=== PATIENT | male | born 1965 | race Two or more races ===

== ENCOUNTER 2017-10-29 16:23 | Emergency (ER) | payer SELFPAY ==
--- NOTE | 2017-10-29 17:06 | PDOC ---
History of Present Illness <PatoCaronelkin Valadez - Last Filed: 10/29/17 19:45> - General History Source: Patient Exam Limitations: No Limitations - History of Present Illness Initial Comments: 10/29/17 19:54 Patient is a 52 year old female with a significant past medical history of varicose veins and psychiatric problems who presents to the ED with complaints of left arm pain that began 1 week ago. Patient reports going to [facility] last week and was given an IV into his left arm. He reports experiencing intermittent diffuse left arm pain that he states shoots up and down his arm. Denies Chest pain, SOB. Denies nausea, vomiting. Denies chills, fevers, chills. Denies contact with sick individuals, out of state travelling. Denies any other symptoms. Allergies: None Social history: Current smoker (30 cigarettes). No alcohol. No illicit drugs. Surgical history: None PMD: None <Kevin Farrell - Last Filed: 10/29/17 19:55> - General Chief Complaint: Substance Abuse Stated Complaint: DRUGS Time Seen by Provider: 10/29/17 16:56 Past History - Past Medical History Psychiatric Problems: Yes - Immunization History Immunization Up to Date: Yes - Suicide/Smoking/Psychosocial Hx Smoking History: Never smoked Have you smoked in the past 12 months: No Number of Cigarettes Smoked Daily: 10 Hx Alcohol Use: No Drug/Substance Use Hx: No Substance Use Type: None <PatoAsaelelkin Valadez - Last Filed: 10/29/17 19:45> <Kevin Farrell - Last Filed: 10/29/17 19:55> - Past Medical History Allergies/Adverse Reactions: Allergies Allergy/AdvReac Type Severity Reaction Status Date / Time No Known Allergies Allergy Verified 04/11/16 08:45 Home Medications: Ambulatory Orders NK [No Known Home Medication] 10/29/17 Review of Systems - Review of Systems Able to Perform ROS?: Yes Comments:: 10/29/17 19:54 CONSTITUTIONAL: Absent: fever, chills, diaphoresis, generalized weakness, malaise, loss of appetite HEENT: Absent: rhinorrhea, nasal congestion, throat pain, throat swelling, difficulty swallowing, mouth swelling, ear pain, eye pain, visual Changes CARDIOVASCULAR: Absent: chest pain, syncope, palpitations, irregular heart rate, lightheadedness , peripheral edema RESPIRATORY: Absent: cough, shortness of breath, dyspnea with exertion, orthopnea, wheezing, stridor, hemoptysis GASTROINTESTINAL: Absent: abdominal pain, abdominal distension, nausea, vomiting, diarrhea, constipation, melena, hematochezia GENITOURINARY: Absent: dysuria, frequency, urgency, hesitancy, hematuria, flank pain, genital pain MUSCULOSKELETAL: +Left arm pain. Absent: myalgia, arthralgia, joint swelling SKIN: Absent: rash, itching, pallor HEMATOLOGIC/IMMUNOLOGIC: Absent: easy bleeding, easy bruising, lymphadenopathy, frequent infections ENDOCRINE: Absent: unexplained weight gain, unexplained weight loss, heat intolerance, cold intolerance NEUROLOGIC: Absent: headache, focal weakness or paresthesias, dizziness, unsteady gait, seizure, mental status changes, bladder or bowel incontinence PSYCHIATRIC: Absent: anxiety, depression, suicidal or homicidal ideation, hallucinations. All Other Systems: Reviewed and Negative <Kevin Farrell - Last Filed: 10/29/17 19:55> *Physical Exam - Vital Signs Last Vital Signs Temp Pulse Resp BP Pulse Ox 97.7 F 78 18 134/82 100 10/29/17 16:59 10/29/17 16:59 10/29/17 16:59 10/29/17 16:59 10/29/17 16:59 - Physical Exam Comments: 10/29/17 19:54 GENERAL: Well-appearing, well-nourished. No apparent distress. HEENT: Normocephalic, atraumatic. PERRL, EOM intact. CARDIOVASCULAR: Normal S1, S2. Regular rate and rhythm. PULMONARY: Clear to auscultation bilaterally. ABDOMEN: Soft, non-distended, non-tender. EXTREMITIES: +Lower extremity varicose veins. +Good ROM. 1+ Bilateral lower extremity edema. Normal ROM in all four extremities. No gross deformities. No cellulitis. SKIN: Warm, dry. No rash NEUROLOGICAL: No focal neurological deficits. <Kevin Farrell - Last Filed: 10/29/17 19:55> ED Treatment Course - Medications Given in the ED: ED Medications Discontinued Medications Generic Name Dose Route Start Last Admin Trade Name Freq PRN Reason Stop Dose Admin Ketorolac Tromethamine 60 mg 10/29/17 17:43 10/29/17 18:51 Toradol Injection - IM 10/29/17 17:44 60 mg ONCE ONE Administration <Kevin Farrell - Last Filed: 10/29/17 19:55> Medical Decision Making - Medical Decision Making 10/29/17 17:55 52 yo male p/w left shoulder pain for an indeterminate amount of time. He states he had this pain since "for ever".Denies any recent trauma. -Exam neurovascularly intact with 2 point sensation,good ulnar and radial pulses PMH varicose veins,psych Pt has good range of motion and no obvious deformity 10/29/17 19:39 xray of left shoulder no acute dislocation or fracture IMP chronic L shoulder pain, DJD <Caron Whyte - Last Filed: 10/29/17 19:45> *DC/Admit/Observation/Transfer <Caron Whyte - Last Filed: 10/29/17 19:45> - Attestations Scribe Attestion: 10/29/17 19:54 Documentation prepared by Kevin Farrell, acting as medical chemist for Caron Whyte MD/DO. <Kevin Farrell - Last Filed: 10/29/17 19:55> Diagnosis at time of Disposition: Chronic left shoulder pain - Patient Instructions Printed Discharge Instructions: DI for Shoulder Pain Additional Instructions: please take tylenol or motrin for pain
[2017-10-29 17:41] VITALS: BMI 21.0
[2017-10-29] MEDS ORDERED: KETOROLAC TROMETHAMINE 60 MG/2 ML VIAL IM ONE (17:43)
[2017-10-29] MEDS ORDERED: KETOROLAC TROMETHAMINE 60 MG/2 ML VIAL ONE (18:41)
[2017-10-29 20:31] VITALS: BP 125/81; PULSE 69; TEMP 97.9
== END 2017-10-29 20:33 | disposition home or self-care (01) ==
LOC: JER 16:23
PROC: 3E0233Z Introduction of Anti-inflammatory into Muscle, Percutaneous Approach (ICD-10-PCS; principal; 2017-10-29)
DX: M25.512 Pain in left shoulder (principal); G89.29 Other chronic pain; R60.0 Localized edema; I83.93 Asymptomatic varicose veins of bilateral lower extremities; F41.9 Anxiety disorder, unspecified
CPT/HCPCS: 73030-TC-LT; 99283-25

== ENCOUNTER 2018-01-25 12:31 | Inpatient (IN) | payer SELFPAY ==
[2018-01-25 16:07] VITALS: BMI 24.7
--- NOTE | 2018-01-25 21:30 | HP ---
COWS - Scale Resting Pulse: 1= [place] 81-100 Sweatin= Chills/Flushing Restless Observation: 1= Difficult to Sit Still Pupil Size: 1= Pupils >than Normal Bone or Joint Aches: 2= Severe Diffuse Aches Runny Nose/ Eye Tearin= Runny Nose/Eyes GI Upset > 30mins: 3= Vomiting/Diarrhea (no vomiting, diarrhea x 2) Tremor Observation: 2= Slight Tremor Visible Yawning Observation: 1= 1-2x During Session Anxiety or Irritability: 4=Extreme Anxiety Goose Flesh Skin: 0=Smooth Skin COWS Score: 18 Admission [facility] Chief Complaint: Opioid withdrawal symptoms Allergies/Adverse Reactions: Allergies Allergy/AdvReac Type Severity Reaction Status Date / Time No Known Allergies Allergy Verified 01/25/18 20:43 History of Present Illness: 52 years old male with 30 years history of heroin and cocaine dependence is seeking admission to detox. Patient states that the last time he was in detox was 15 years ago. Reports 5 years of sobriety. Patient has medical history of Hep. C, varicose vein, anxiety, GERD and depression. He denies suicidal attempt and suicidal ideation at this time. Exam Limitations: No Limitations - Ebola screening Have you traveled outside of the country in the last 21 days: No (N) Have you had contact with anyone from an Ebola affected area: No Have you been sick,other than usual withdrawal symptoms: No Do you have a fever: No - Review of Systems Constitutional: Chills, Loss of Appetite, Malaise, Night Sweats, Changes in sleep EENT: reports: Blurred Vision Respiratory: reports: No Symptoms reported Cardiac: reports: No Symptoms Reported GI: reports: Diarrhea, Nausea, Poor Appetite, Poor Fluid Intake, Abdominal cramping : reports: No Symptoms Reported Musculoskeletal: reports: Back Pain Integumentary: reports: No Symptoms Reported, Dryness, Flushing Neuro: reports: Tingling, Tremors Endocrine: reports: No Symptoms Reported Hematology: reports: Easy Bleeding, Easy Bruising Psychiatric: reports: Anxious, Depressed Other Systems: Reviewed and Negative Patient History - Patient Medical History Hx Anemia: No Hx Asthma: No Hx Chronic Obstructive Pulmonary Disease (COPD): No Hx Cancer: No Hx Cardiac Disorders: No Hx Congestive Heart Failure: No Hx Hypertension: No Hx Hypercholesterolemia: No HX Cerebrovascular Accident: No Hx Seizures: No Hx Diabetes: No Hx Gastrointestinal Disorders: Yes (GERD - Not on medication) Hx Liver Disease: Yes (Hep C) Hx Genitourinary Disorders: No Hx Sexually Transmitted Disorders: No Hx Renal Disease (ESRD): No Hx Thyroid Disease: No Hx Human Immunodeficiency Virus (HIV): No (Negative 2013) Hx Hepatitis C: Yes (Not on medication) Hx Depression: Yes (Seroquel) Hx Suicide Attempt: No (Denies suicide attempt and suicidal ideation at this time) Hx Bipolar Disorder: No Hx Schizophrenia: Yes Other Medical History: varicose vein - PLAVIX, Anxiety - Patient Surgical History Past Surgical History: No Hx Neurologic Surgery: No Hx Cataract Extraction: No Hx Cardiac Surgery: No Hx Lung Surgery: No Hx Abdominal Surgery: No Hx Appendectomy: No Hx Cholecystectomy: No Hx Genitourinary Surgery: No Hx Orthopedic Surgery: No Anesthesia Reaction: No - PPD History Previous Implant?: Yes Documented Results: Positive w/o proof PPD to be Administered?: No - Reproductive History Patient is a Female of Child Bearing Age (11 -55 yrs old): No (MALE) - Smoking Cessation Smoking history: Current every day smoker Have you smoked in the past 12 months: Yes Aproximately how many cigarettes per day: 40 Hx Chewing Tobacco Use: No Initiated information on smoking cessation: Yes 'Breaking Loose' booklet given: 01/25/18 - Substance & Tx. History Hx Alcohol Use: No Hx Substance Use: Yes Substance Use Type: Cocaine, Heroin, Marijuana, Opiates Hx Substance Use Treatment: Yes ([facility]) - Substances Abused Heroin Route: Inhalation Frequency: Daily Amount used: 10 BAGS Age of first use: 22 Date of Last Use: 01/24/18 Cocaine Route: Smoking Frequency: Daily Amount used: $60 Age of first use: 20 Date of Last Use: 01/19/18 Marijuana/Hashish Route: Smoking Frequency: Daily Amount used: $10 Age of first use: 20 Date of Last Use: 01/20/18 Family Disease History - Family Disease History Family Disease History: Diabetes: Mother (Alcoholic), Heart Disease: Mother, Other: Mother Admission Physical Exam BHS - Vital Signs Vital Signs: Vital Signs - 24 hr 01/25/18 16:03 Temperature 98.6 F Pulse Rate 97 H Respiratory 20 Rate Blood Pressure 141/66 - Physical General Appearance: Yes: Moderate Distress, Tremorous, Irritable, Sweating, Anxious HEENTM: Yes: EOMI, Normal ENT Inspection Respiratory: Yes: Lungs Clear, Normal Breath Sounds, No Respiratory Distress Neck: Yes: Supple Breast: Yes: Breast Exam Deferred Cardiology: Yes: Tachycardia Abdominal: Yes: Normal Bowel Sounds, Soft Genitourinary: Yes: Within Normal Limits Back: Yes: Normal Inspection Musculoskeletal: Yes: Back pain Extremities: Yes: Tremors Neurological: Yes: Alert, Normal Mood/Affect Integumentary: Yes: Dry Lymphatic: Yes: Within Normal Limits - Diagnostic (1) Opioid dependence with withdrawal Current Visit: Yes Status: Chronic (2) Cocaine dependence, uncomplicated Current Visit: Yes Status: Chronic (3) Cannabis dependence Current Visit: Yes Status: Chronic (4) Hep C w/o coma, chronic Current Visit: Yes Status: Chronic (5) GERD (gastroesophageal reflux disease) Current Visit: Yes Status: Chronic (6) Depression Current Visit: Yes Status: Chronic (7) Varicose vein Current Visit: No Status: Chronic Cleared for Admission [facility] - Detox or Rehab [facility] Level of Care: Medically Managed Detox Regimen/Protocol: Methadone [facility] Breath Alcohol Content Breath Alcohol Content: 0 Urine Drug Screen - Results Drug Screen Negative: No Urine Drug Screen Results: THC-Marijuana, JESSICA-Cocaine, OPI-Opiates, PCP- Phencyclidine, OXY-Oxycodone
[2018-01-25] MEDS ORDERED: guaiFENesin/D-METHORPHAN HB 10 ML UNIT-DOSE CUPS PO PRN (21:44)
[2018-01-25] MEDS ORDERED: MENTHOL/PHENOL 1 EACH UD MM PRN (21:44)
[2018-01-25] MEDS ORDERED: IBUPROFEN 400 MG TABLET (FP) PO PRN (21:44)
[2018-01-25] MEDS ORDERED: ACETAMINOPHEN 325 MG TABLET (FP) PO PRN (21:44)
[2018-01-25] MEDS ORDERED: MAGNESIUM HYDROX 2400MG/30ML ORAL SUSPENSION 30 ML CUP PO PRN (21:44)
[2018-01-25] MEDS ORDERED: NICOTINE POLACRILEX 2 MG GUM BC PRN (21:44)
[2018-01-25] MEDS ORDERED: P-EPHED 60MG/TRIPROLIDI 2.5MG TABLET PO PRN (21:44)
[2018-01-25] MEDS ORDERED: METHADONE HCL 10 MG TABLET (FOR DETOX USE ONLY) PO ONE ×2 (21:44→23:00)
[2018-01-25] MEDS ORDERED: MAGNESIUM CITRATE 300 ML BOTTLE PO PRN (21:44)
[2018-01-25] MEDS ORDERED: LOPERAMIDE HCL 2 MG CAPSULE PO PRN (21:44)
[2018-01-25] MEDS ORDERED: MELATONIN 5 MG TABLETS PO PRN (22:00)
[2018-01-25 23:34] LABS: URINE APPEARANCE CLEAR; URINE BILIRUBIN NEGATIVE (<2.0 mg/dL); URINE BLOOD NEGATIVE (NEGATIVE); URINE COLOR YELLOW; URINE GLUCOSE (UA) NEGATIVE (NEGATIVE); URINE KETONE NEGATIVE (NEGATIVE); URINE LEUK ESTERASE NEGATIVE (NEGATIVE); URINE NITRITE NEGATIVE (NEGATIVE); URINE PROTEIN NEGATIVE (NEGATIVE)
[2018-01-25] MEDS: THIAMINE HCL 100 MG TABLET (FP) PO SCH (23:53)
[2018-01-25] MEDS: diazePAM 5 MG TABLET PO PRN (23:53)
[2018-01-26] MEDS ORDERED: METHADONE HCL 10 MG TABLET (FOR DETOX USE ONLY) PO ONE (10:00)
[2018-01-26 10:41] LABS: HEMATOCRIT 40.2 % (35.4-49); HEMOGLOBIN 13.2 GM/dL (11.7-16.9); MCH 31.1 pg (25.7-33.7); MCHC 32.7 g/dl (32.0-35.9); MEAN PLT VOLUME 9.4 fl (7.5-11.1); PLATELET COUNT 178 K/MM3 (134-434); RBC 4.24 M/mm3 (4.00-5.60); RDW 14.8 % (11.9-15.9); WHITE BLOOD COUNT 6.2 K/mm3 (4.0-10.0)
[2018-01-26 10:42] LABS: ANION GAP 7 (8-16); BLOOD UREA NITROGEN 11 mg/dL (7-18); CALCIUM 8.4 mg/dL (8.5-10.1); CHLORIDE 109 mmol/L (98-107); CO2 27 mmol/L (21-32); GLUCOSE,RANDOM 124 mg/dL (74-106); POTASSIUM 3.7 mmol/L (3.5-5.1); SGPT/ALT 29 U/L (12-78); SODIUM 143 mmol/L (136-145)
[2018-01-26 10:45] LABS: ALK PHOS 92 U/L (45-117); BILIRUBIN,TOTAL 0.4 mg/dL (0.2-1.0); SGOT/AST 32 U/L (15-37); TOT PROT 6.7 g/dl (6.4-8.2)
[2018-01-26] MEDS: NICOTINE 14 MG/24 HOURS TOPICAL PATCH TD SCH (10:48)
[2018-01-26] MEDS: PRENATAL VITAMINS W/ FOLIC ACID TABLET (FP) PO SCH (10:48)
[2018-01-26] MEDS: CLOPIDOGREL BISULFATE 75 MG TABLET (FP) PO SCH (10:48)
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
--- NOTE | 2018-01-26 14:04 | PN ---
BHS COWS - Scale Resting Pulse: 1= [place] 81-100 Sweatin= Chills/Flushing Restless Observation: 3= Extraneous Movement Pupil Size: 1= Pupils >than Normal Bone or Joint Aches: 2= Severe Diffuse Aches Runny Nose/ Eye Tearin= Runny Nose/Eyes GI Upset > 30mins: 2= Nausea/Diarrhea Tremor Observation of Outstretched Hands: 2= Slight Tremor Visible Yawning Observation: 1= 1-2x During Session Anxiety or Irritability: 2=Irritable/Anxious Goose Flesh Skin: 0=Smooth Skin COWS Score: 17 BHS Progress Note (SOAP) Subjective: ALERT,IRRITABLE,ANXIOUS,INTERRUPTED SLEEP,TREMOR,PAIN IN THE BODY AND BACK Objective: 01/26/18 14:02 Vital Signs Temperature 98.2 F 01/26/18 10:52 Pulse Rate 84 01/26/18 10:52 Respiratory Rate 18 01/26/18 10:52 Blood Pressure 127/70 01/26/18 10:52 O2 Sat by Pulse Oximetry (%) EKG NSR,LVH Vital Signs Temperature 98.2 F 01/26/18 10:52 Pulse Rate 84 01/26/18 10:52 Respiratory Rate 18 01/26/18 10:52 Blood Pressure 127/70 01/26/18 10:52 O2 Sat by Pulse Oximetry (%) Laboratory Last Values WBC 6.2 K/mm3 (4.0-10.0) 01/26/18 07:50 RBC 4.24 M/mm3 (4.00-5.60) 01/26/18 07:50 Hgb 13.2 GM/dL (11.7-16.9) 01/26/18 07:50 Hct 40.2 % (35.4-49) 01/26/18 07:50 MCV 95.0 fl (80-96) 01/26/18 07:50 MCH 31.1 pg (25.7-33.7) 01/26/18 07:50 MCHC 32.7 g/dl (32.0-35.9) 01/26/18 07:50 RDW 14.8 % (11.9-15.9) 01/26/18 07:50 Plt Count 178 K/MM3 (134-434) 01/26/18 07:50 MPV 9.4 fl (7.5-11.1) 01/26/18 07:50 Sodium 143 mmol/L (136-145) 01/26/18 07:50 Potassium 3.7 mmol/L (3.5-5.1) 01/26/18 07:50 Chloride 109 mmol/L (98-107) H 01/26/18 07:50 Carbon Dioxide 27 mmol/L (21-32) 01/26/18 07:50 Anion Gap 7 (8-16) L 01/26/18 07:50 BUN 11 mg/dL (7-18) D 01/26/18 07:50 Creatinine 1.0 mg/dL (0.7-1.3) D 01/26/18 07:50 Creat Clearance w eGFR > 60 (>60) 01/26/18 07:50 Random Glucose 124 mg/dL (74-106) H D 01/26/18 07:50 Calcium 8.4 mg/dL (8.5-10.1) L 01/26/18 07:50 Total Bilirubin 0.4 mg/dL (0.2-1.0) 01/26/18 07:50 AST 32 U/L (15-37) 01/26/18 07:50 ALT 29 U/L (12-78) 01/26/18 07:50 Alkaline Phosphatase 92 U/L (45-117) 01/26/18 07:50 Total Protein 6.7 g/dl (6.4-8.2) 01/26/18 07:50 Albumin 3.0 g/dl (3.4-5.0) L 01/26/18 07:50 Urine Color Yellow 01/25/18 21:50 Urine Appearance Clear 01/25/18 21:50 Urine pH 6.0 (5.0-8.0) 01/25/18 21:50 Ur Specific [place] 1.027 (1.001-1.035) 01/25/18 21:50 Urine Protein Negative (NEGATIVE) 01/25/18 21:50 Urine Glucose (UA) Negative (NEGATIVE) 01/25/18 21:50 Urine Ketones Negative (NEGATIVE) 01/25/18 21:50 Urine Blood Negative (NEGATIVE) 01/25/18 21:50 Urine Nitrite Negative (NEGATIVE) 01/25/18 21:50 Urine Bilirubin Negative (<2.0 mg/dL) 01/25/18 21:50 Urine Urobilinogen 2.0 mg/dL (0.2-1.0) 01/25/18 21:50 Ur Leukocyte Esterase Negative (NEGATIVE) 01/25/18 21:50 RPR Titer Nonreactive (NONREACTIVE) 01/26/18 07:50 HIV 1&2 Antibody Screen Negative 01/26/18 07:50 HIV P24 Antigen Negative 01/26/18 07:50 Assessment: 01/26/18 14:04 WITHDRAWAL SYMPTOM Plan: CONTINUE DETOX,FASTING GLUCOSE IN AM,INITIAL GLUCOSE IS 124
[2018-01-26] MEDS: MAG HYDROX/AL HYDROX/SIMETH 30 ML UNIT-DOSE CUP PO PRN (16:36)
[2018-01-26] MEDS: diazePAM 5 MG TABLET PO PRN (22:05)
[2018-01-26] MEDS: ZOLPIDEM TARTRATE 5 MG TABLET PO PRN (22:06)
[2018-01-26] MEDS: THIAMINE HCL 100 MG TABLET (FP) PO SCH (22:06)
[2018-01-26] MEDS: PARoxetine HCL 20 MG TABLET (FP) PO SCH (22:06)
[2018-01-27] MEDS ORDERED: METHADONE HCL 5 MG TABLET (FOR DETOX USE ONLY) PO ONE (10:00)
[2018-01-27] MEDS: PRENATAL VITAMINS W/ FOLIC ACID TABLET (FP) PO SCH (10:30)
[2018-01-27] MEDS: NICOTINE 14 MG/24 HOURS TOPICAL PATCH TD SCH (10:42)
[2018-01-27] MEDS: CLOPIDOGREL BISULFATE 75 MG TABLET (FP) PO SCH (10:42)
[2018-01-27] MEDS: diazePAM 5 MG TABLET PO PRN (10:43)
--- NOTE | 2018-01-27 13:13 | PN ---
BHS COWS - Scale Resting Pulse: 0= MD 80 or Below Sweatin= Chills/Flushing Restless Observation: 1= Difficult to Sit Still Pupil Size: 1= Pupils >than Normal Bone or Joint Aches: 2= Severe Diffuse Aches Runny Nose/ Eye Tearin= Runny Nose/Eyes GI Upset > 30mins: 2= Nausea/Diarrhea Tremor Observation of Outstretched Hands: 2= Slight Tremor Visible Yawning Observation: 2= >3x During Session Anxiety or Irritability: 2=Irritable/Anxious Goose Flesh Skin: 0=Smooth Skin COWS Score: 15 BHS Progress Note (SOAP) Subjective: yawning joint ache muscle pain sweat tremor restlessness trouble sleep at night Objective: 01/27/18 13:12 Vital Signs Temperature 96.8 F L 01/27/18 12:05 Pulse Rate 89 01/27/18 12:05 Respiratory Rate 20 01/27/18 12:05 Blood Pressure 126/86 01/27/18 12:05 O2 Sat by Pulse Oximetry (%) Laboratory Last Values WBC 6.2 K/mm3 (4.0-10.0) 01/26/18 07:50 RBC 4.24 M/mm3 (4.00-5.60) 01/26/18 07:50 Hgb 13.2 GM/dL (11.7-16.9) 01/26/18 07:50 Hct 40.2 % (35.4-49) 01/26/18 07:50 MCV 95.0 fl (80-96) 01/26/18 07:50 MCH 31.1 pg (25.7-33.7) 01/26/18 07:50 MCHC 32.7 g/dl (32.0-35.9) 01/26/18 07:50 RDW 14.8 % (11.9-15.9) 01/26/18 07:50 Plt Count 178 K/MM3 (134-434) 01/26/18 07:50 MPV 9.4 fl (7.5-11.1) 01/26/18 07:50 Sodium 143 mmol/L (136-145) 01/26/18 07:50 Potassium 3.7 mmol/L (3.5-5.1) 01/26/18 07:50 Chloride 109 mmol/L (98-107) H 01/26/18 07:50 Carbon Dioxide 27 mmol/L (21-32) 01/26/18 07:50 Anion Gap 7 (8-16) L 01/26/18 07:50 BUN 11 mg/dL (7-18) D 01/26/18 07:50 Creatinine 1.0 mg/dL (0.7-1.3) D 01/26/18 07:50 Creat Clearance w eGFR > 60 (>60) 01/26/18 07:50 Random Glucose 124 mg/dL (74-106) H D 01/26/18 07:50 Fasting Glucose 117 mg/dL (70-105) H 01/27/18 07:30 Calcium 8.4 mg/dL (8.5-10.1) L 01/26/18 07:50 Total Bilirubin 0.4 mg/dL (0.2-1.0) 01/26/18 07:50 AST 32 U/L (15-37) 01/26/18 07:50 ALT 29 U/L (12-78) 01/26/18 07:50 Alkaline Phosphatase 92 U/L (45-117) 01/26/18 07:50 Total Protein 6.7 g/dl (6.4-8.2) 01/26/18 07:50 Albumin 3.0 g/dl (3.4-5.0) L 01/26/18 07:50 Urine Color Yellow 01/25/18 21:50 Urine Appearance Clear 01/25/18 21:50 Urine pH 6.0 (5.0-8.0) 01/25/18 21:50 Ur Specific [place] 1.027 (1.001-1.035) 01/25/18 21:50 Urine Protein Negative (NEGATIVE) 01/25/18 21:50 Urine Glucose (UA) Negative (NEGATIVE) 01/25/18 21:50 Urine Ketones Negative (NEGATIVE) 01/25/18 21:50 Urine Blood Negative (NEGATIVE) 01/25/18 21:50 Urine Nitrite Negative (NEGATIVE) 01/25/18 21:50 Urine Bilirubin Negative (<2.0 mg/dL) 01/25/18 21:50 Urine Urobilinogen 2.0 mg/dL (0.2-1.0) 01/25/18 21:50 Ur Leukocyte Esterase Negative (NEGATIVE) 01/25/18 21:50 RPR Titer Nonreactive (NONREACTIVE) 01/26/18 07:50 HIV 1&2 Antibody Screen Negative 01/26/18 07:50 HIV P24 Antigen Negative 01/26/18 07:50 lab noted Assessment: 01/27/18 13:13 withdrawal sx Plan: continue detox
[2018-01-27] MEDS: MAG HYDROX/AL HYDROX/SIMETH 30 ML UNIT-DOSE CUP PO PRN (17:17)
[2018-01-27] MEDS: ZOLPIDEM TARTRATE 5 MG TABLET PO PRN (22:41)
[2018-01-27] MEDS: PARoxetine HCL 20 MG TABLET (FP) PO SCH (22:41)
[2018-01-27] MEDS: THIAMINE HCL 100 MG TABLET (FP) PO SCH (22:41)
[2018-01-28] MEDS ORDERED: METHADONE HCL 5 MG TABLET (FOR DETOX USE ONLY) PO ONE (10:00)
[2018-01-28] MEDS: PRENATAL VITAMINS W/ FOLIC ACID TABLET (FP) PO SCH (10:11)
[2018-01-28] MEDS: NICOTINE 14 MG/24 HOURS TOPICAL PATCH TD SCH (10:12)
[2018-01-28] MEDS: CLOPIDOGREL BISULFATE 75 MG TABLET (FP) PO SCH (10:12)
[2018-01-28] MEDS: MAG HYDROX/AL HYDROX/SIMETH 30 ML UNIT-DOSE CUP PO PRN ×2 (10:26→19:52)
--- NOTE | 2018-01-28 10:57 | PN ---
S Progress Note (SOAP) Subjective: ALERT,IRRITABLE,ANXIOUS,INTERRUPTED SLEEP Objective: 01/28/18 10:55 Vital Signs Temperature 97.2 F L 01/28/18 10:14 Pulse Rate 94 H 01/28/18 10:14 Respiratory Rate 18 01/28/18 10:14 Blood Pressure 114/66 01/28/18 10:14 O2 Sat by Pulse Oximetry (%) Assessment: 01/28/18 10:55 WITHDRAWAL SYMPTOM Plan: CONTINUE DETOX.DISCHARGE IN AM
--- NOTE | 2018-01-28 11:53 | PN ---
S Progress Note Note: patient still on medication,continue detox,discharge day is 01/30/18
--- NOTE | 2018-01-28 12:42 | EKG ---
Test Reason : Blood Pressure : / mmHG Vent. Rate : 064 BPM Atrial Rate : 064 BPM P-R Int : 204 ms QRS Dur : 084 ms QT Int : 454 ms P-R-T Axes : 076 076 060 degrees QTc Int : 468 ms NORMAL SINUS RHYTHM MINIMAL VOLTAGE CRITERIA FOR LVH, MAY BE NORMAL VARIANT BORDERLINE ECG NO PREVIOUS ECGS AVAILABLE Confirmed by CRISTIN MUELLER MD ([id number]) on 01/28/2018 12:42:21 PM Referred By: Confirmed By:CRISTIN MUELLER MD
[2018-01-28] MEDS: THIAMINE HCL 100 MG TABLET (FP) PO SCH (22:17)
[2018-01-28] MEDS: PARoxetine HCL 20 MG TABLET (FP) PO SCH (22:18)
[2018-01-28] MEDS: ZOLPIDEM TARTRATE 5 MG TABLET PO PRN (22:20)
[2018-01-29] MEDS ORDERED: METHADONE HCL 10 MG TABLET (FOR DETOX USE ONLY) PO ONE (10:00)
[2018-01-29] MEDS: CLOPIDOGREL BISULFATE 75 MG TABLET (FP) PO SCH (10:12)
[2018-01-29] MEDS: PRENATAL VITAMINS W/ FOLIC ACID TABLET (FP) PO SCH (10:12)
[2018-01-29] MEDS: NICOTINE 14 MG/24 HOURS TOPICAL PATCH TD SCH (10:12)
--- NOTE | 2018-01-29 12:04 | PN ---
S Progress Note (SOAP) Subjective: ALERT,IRRITABLE,ANXIOUS,INTERRUPTED SLEEP, Objective: 01/29/18 12:03 Vital Signs Temperature 96.8 F L 01/29/18 10:10 Pulse Rate 97 H 01/29/18 10:10 Respiratory Rate 18 01/29/18 10:10 Blood Pressure 126/74 01/29/18 10:10 O2 Sat by Pulse Oximetry (%) Assessment: 01/29/18 12:03 WITHDRAWAL SYMPTOM Plan: CONTINUE DETOX,DISCHARGE IN AM
[2018-01-29] MEDS: ZOLPIDEM TARTRATE 5 MG TABLET PO PRN (22:33)
[2018-01-29] MEDS: THIAMINE HCL 100 MG TABLET (FP) PO SCH (22:33)
[2018-01-29] MEDS: PARoxetine HCL 20 MG TABLET (FP) PO SCH (22:33)
[2018-01-29] MEDS: MAG HYDROX/AL HYDROX/SIMETH 30 ML UNIT-DOSE CUP PO PRN (22:52)
[2018-01-30] MEDS ORDERED: METHADONE HCL 5 MG TABLET (FOR DETOX USE ONLY) PO ONE (06:00)
[2018-01-30 06:18] VITALS: BP 101/65; PULSE 88; TEMP 97.2
--- NOTE | 2018-01-30 08:21 | PN ---
S Progress Note (SOAP) Subjective: ALERT,NO COMPLAINT Objective: 01/30/18 08:18 Vital Signs Temperature 97.2 F L 01/30/18 06:00 Pulse Rate 88 01/30/18 06:00 Respiratory Rate 18 01/30/18 06:00 Blood Pressure 101/65 01/30/18 06:00 O2 Sat by Pulse Oximetry (%) Assessment: 01/30/18 08:18 DETOX COMPLETED,NO WITHDRAWAL SYMPTOM Plan: DISCHARGE TODAY,FOLLOW UP WITH AFTER CARE PROGRAM ARRANGEMENT
--- NOTE | 2018-01-30 08:26 | DS ---
[facility] Detox Discharge Summary Admission Date: 01/25/18 Discharge Date: 01/30/18 - History Present History: Cannabis Dependence, Cocaine Dependence, Opioid Dependence Additional Comments: FOLLOW UP WITH AFTER CARE PROGRAM ARRANGEMENT Pertinent Past History: HEPATITIS C GERD VARICOSE VEIN DEPRESSION - Physical Exam Results Vital Signs: Vital Signs Temperature 97.2 F L 01/30/18 06:00 Pulse Rate 88 01/30/18 06:00 Respiratory Rate 18 01/30/18 06:00 Blood Pressure 101/65 01/30/18 06:00 O2 Sat by Pulse Oximetry (%) Pertinent Admission Physical Exam Findings: WITHDRAWAL SIGNS AND SYNDROME Vital Signs Temperature 97.2 F L 01/30/18 06:00 Pulse Rate 88 01/30/18 06:00 Respiratory Rate 18 01/30/18 06:00 Blood Pressure 101/65 01/30/18 06:00 O2 Sat by Pulse Oximetry (%) Laboratory Last Values WBC 6.2 K/mm3 (4.0-10.0) 01/26/18 07:50 RBC 4.24 M/mm3 (4.00-5.60) 01/26/18 07:50 Hgb 13.2 GM/dL (11.7-16.9) 01/26/18 07:50 Hct 40.2 % (35.4-49) 01/26/18 07:50 MCV 95.0 fl (80-96) 01/26/18 07:50 MCH 31.1 pg (25.7-33.7) 01/26/18 07:50 MCHC 32.7 g/dl (32.0-35.9) 01/26/18 07:50 RDW 14.8 % (11.9-15.9) 01/26/18 07:50 Plt Count 178 K/MM3 (134-434) 01/26/18 07:50 MPV 9.4 fl (7.5-11.1) 01/26/18 07:50 Sodium 143 mmol/L (136-145) 01/26/18 07:50 Potassium 3.7 mmol/L (3.5-5.1) 01/26/18 07:50 Chloride 109 mmol/L (98-107) H 01/26/18 07:50 Carbon Dioxide 27 mmol/L (21-32) 01/26/18 07:50 Anion Gap 7 (8-16) L 01/26/18 07:50 BUN 11 mg/dL (7-18) D 01/26/18 07:50 Creatinine 1.0 mg/dL (0.7-1.3) D 01/26/18 07:50 Creat Clearance w eGFR > 60 (>60) 01/26/18 07:50 Random Glucose 124 mg/dL (74-106) H D 01/26/18 07:50 Fasting Glucose 117 mg/dL (70-105) H 01/27/18 07:30 Calcium 8.4 mg/dL (8.5-10.1) L 01/26/18 07:50 Total Bilirubin 0.4 mg/dL (0.2-1.0) 01/26/18 07:50 AST 32 U/L (15-37) 01/26/18 07:50 ALT 29 U/L (12-78) 01/26/18 07:50 Alkaline Phosphatase 92 U/L (45-117) 01/26/18 07:50 Total Protein 6.7 g/dl (6.4-8.2) 01/26/18 07:50 Albumin 3.0 g/dl (3.4-5.0) L 01/26/18 07:50 Urine Color Yellow 01/25/18 21:50 Urine Appearance Clear 01/25/18 21:50 Urine pH 6.0 (5.0-8.0) 01/25/18 21:50 Ur Specific [place] 1.027 (1.001-1.035) 01/25/18 21:50 Urine Protein Negative (NEGATIVE) 01/25/18 21:50 Urine Glucose (UA) Negative (NEGATIVE) 01/25/18 21:50 Urine Ketones Negative (NEGATIVE) 01/25/18 21:50 Urine Blood Negative (NEGATIVE) 01/25/18 21:50 Urine Nitrite Negative (NEGATIVE) 01/25/18 21:50 Urine Bilirubin Negative (<2.0 mg/dL) 01/25/18 21:50 Urine Urobilinogen 2.0 mg/dL (0.2-1.0) 01/25/18 21:50 Ur Leukocyte Esterase Negative (NEGATIVE) 01/25/18 21:50 RPR Titer Nonreactive (NONREACTIVE) 01/26/18 07:50 HIV 1&2 Antibody Screen Negative 01/26/18 07:50 HIV P24 Antigen Negative 01/26/18 07:50 - Treatment Hospital Course: Detox Protocol Followed, Detoxed Safely, Responded well, Discharged Condition Good Patient has Accepted a Rehab Referral to: DECLINED - Medication Discharge Medications: Ambulatory Orders Clonazepam [Klonopin] 1 mg PO TID 01/25/18 Quetiapine Fumarate [Seroquel -] 300 mg PO HS 01/25/18 Zolpidem Tartrate [Ambien] 10 mg PO HS 01/25/18 Paroxetine HCl [Paxil -] 20 mg PO HS #30 tablet 01/26/18 Paroxetine HCl [Paxil -] 40 mg PO HS 01/26/18 Quetiapine Fumarate "Xr" [Seroquel XR] 100 mg PO HS #60 tablet 01/26/18 Quetiapine Fumarate "Xr" [Seroquel XR] 300 mg PO HS 01/26/18 Clopidogrel Bisulfate [Plavix -] 75 mg PO DAILY #30 tablet 01/29/18 - Diagnosis (1) Opioid dependence with withdrawal Current Visit: Yes Status: Acute (2) Cannabis dependence Current Visit: Yes Status: Chronic (3) Cocaine dependence, uncomplicated Current Visit: Yes Status: Chronic (4) GERD (gastroesophageal reflux disease) Current Visit: Yes Status: Chronic (5) Hep C w/o coma, chronic Current Visit: Yes Status: Chronic (6) Varicose vein Current Visit: No Status: Chronic - AMA Did Patient Leave Against Medical Advice: No
== END 2018-01-30 08:58 | disposition home or self-care (01) | DRG 773 ==
LOC: YASAS 12:31 → Y6N 21:12
PROVIDERS: ADMIT Internal Medicine; ATTEND Internal Medicine
PROC: HZ2ZZZZ Detoxification Services for Substance Abuse Treatment (ICD-10-PCS; principal; 2018-01-25)
DX: F11.23 Opioid dependence with withdrawal (principal); F14.20 Cocaine dependence, uncomplicated; F12.20 Cannabis dependence, uncomplicated; F32.9 Major depressive disorder, single episode, unspecified; F20.9 Schizophrenia, unspecified; B18.2 Chronic viral hepatitis C; I86.8 Varicose veins of other specified sites; Z79.01 Long term (current) use of anticoagulants
CPT/HCPCS: 36415; 71046-TC-FY; 80053; 81003; 82947; 85027; 86593; 87389; 93005; 93010

== ENCOUNTER 2018-05-09 09:40 | Inpatient (IN) | payer OTHER ==
[2018-05-09 10:11] VITALS: BMI 24.3
--- NOTE | 2018-05-09 13:25 | HP ---
CIWA Score - CIWA Score Nausea/Vomitin-No Nausea/No Vomiting Muscle Tremors: 2 Anxiety: 4-Mod. Anxious/Guarded Agitation: 2 Paroxysmal Sweats: 3 Orientation: 0-Oriented Tacttile Disturbances: 3-Moderate Itch/Numb/Burn Auditory Disturbances: 0-None Visual Disturbances: 0-None Headache: 4-Moderately Severe CIWA-Ar Total Score: 18 Admission ROS S - HPI Chief Complaint: "I'm a drug addict." Patient is here to Detox from alcohol. Allergies/Adverse Reactions: Allergies Allergy/AdvReac Type Severity Reaction Status Date / Time No Known Allergies Allergy Verified 05/09/18 10:43 History of Present Illness: Patient is a 52 YO male here to Detox from Alcohol. Patient has had several previous Detox admissions at [facility] in the past (Last: 01/2018). Patient is a client at [facility] MMTP Program (Daily Dose: 40 MG PO Daily; Last Day Medicated: Today, 05/09/2018). Exam Limitations: No Limitations - Ebola screening Have you traveled outside of the country in the last 21 days: No Have you had contact with anyone from an Ebola affected area: No Have you been sick,other than usual withdrawal symptoms: No Do you have a fever: No - Review of Systems Constitutional: Chills, Diaphoresis, Fever, Malaise, Night Sweats, Changes in sleep, Other (Patient is wearing a neck brace, given to him at [facility] 1-2 weeks ago after he fell out of a 2nd Story window.) EENT: reports: Blurred Vision Respiratory: reports: Shortness of Breath Cardiac: reports: Palpitations, Other (Patient reports history of "Blackouts." Last episode: approx. 3 days ago.) GI: reports: Constipated, Indigestion (Heartburn.), Abdominal cramping : reports: No Symptoms Reported Musculoskeletal: reports: Back Pain, Joint Pain, Muscle Pain, Neck Pain (Fell out of 2nd story window approx. 2 weeks ago. Was evaluated at [facility]. Wearing neck brace at time of assessment.), Joint Stiffness Integumentary: reports: No Symptoms Reported Neuro: reports: Headache, Tremors Endocrine: reports: No Symptoms Reported Hematology: reports: No Symptoms Reported, Blood Clots (History in Bilateral Legs, Was taking Plavix, HAS NOT TAKEN FOR APPORX. LAST 1 MONTH.) Psychiatric: reports: Judgement Intact, Mood/Affect Appropiate, Orientated x3, Anxious, Depressed (Med. in past, none taken for last 1 week.) Other Systems: Reviewed and Negative Patient History - Patient Medical History Hx Anemia: No Hx Asthma: Yes (Uses MDI PRN.) Hx Chronic Obstructive Pulmonary Disease (COPD): No Hx Cancer: No Hx Cardiac Disorders: No Hx Congestive Heart Failure: No Hx Hypertension: No Hx Hypercholesterolemia: No Hx Pacemaker: No HX Cerebrovascular Accident: No Hx Seizures: No Hx Dementia: No Hx Diabetes: No Hx Gastrointestinal Disorders: Yes (acid reflux) Hx Liver Disease: Yes (Hep C, Cleared without medication.) Hx Genitourinary Disorders: No Hx Sexually Transmitted Disorders: No Hx Renal Disease (ESRD): No Hx Thyroid Disease: No Hx Human Immunodeficiency Virus (HIV): No (Negative History.) Hx Hepatitis C: Yes (Cleared Virus without medication.) Hx Depression: Yes (Takes Paxil.) Hx Suicide Attempt: No (PATIENT DENIES CURENT SI / HI.) Hx Bipolar Disorder: No Hx Schizophrenia: Yes (Takes Seroquel.) Other Medical History: DENIES. - Patient Surgical History Past Surgical History: Yes Hx Neurologic Surgery: No Hx Cataract Extraction: No Hx Cardiac Surgery: No Hx Lung Surgery: No Hx Breast Surgery: No Hx Breast Biopsy: No Hx Abdominal Surgery: No Hx Appendectomy: No Hx Cholecystectomy: No Hx Genitourinary Surgery: No Hx Section: No Hx Orthopedic Surgery: No Other Surgical History: DENIES. Anesthesia Reaction: No - PPD History Previous Implant?: Yes Documented Results: Positive w/o proof Implanted On Prior [facility] Admission?: No PPD to be Administered?: No - Reproductive History Patient is a Female of Child Bearing Age (11 -55 yrs old): No (PATIENT IS MALE.) - Smoking Cessation Smoking history: Current every day smoker Have you smoked in the past 12 months: Yes Aproximately how many cigarettes per day: 40 Cigars Per Day: 0 Hx Chewing Tobacco Use: No Initiated information on smoking cessation: Yes 'Breaking Loose' booklet given: 05/09/18 (GIVEN TO PATIENT.) - Substance & Tx. History Hx Alcohol Use: Yes Hx Substance Use: Yes Substance Use Type: Alcohol, Cocaine, Prescribed (MMTP.) Hx Substance Use Treatment: Yes (Previous Detox admissions at [facility] (Last: 2017).) - Substances Abused Cocaine Route: Smoking Frequency: Daily Amount used: $50 Age of first use: 12 Date of Last Use: 05/09/18 PCP Route: Smoking Frequency: Daily Amount used: $20 Age of first use: 18 Date of Last Use: 05/08/18 Alcohol-beer/rum Route: Oral Frequency: 3-6 times per week Amount used: 2-6 pks./1 10/16 pts. Age of first use: 15 Date of Last Use: 05/08/18 Family Disease History - Family Disease History Family Disease History: Diabetes: Mother (Alcoholic), Heart Disease: Mother, Other: Mother, Brother (Psychiatric Disorder.) Admission Physical Exam [facility] - Vital Signs Vital Signs: Vital Signs - 24 hr 05/09/18 10:09 Temperature 97.6 F Pulse Rate 98 H Respiratory 20 Rate Blood Pressure 138/76 - Physical General Appearance: Yes: Nourished, Appropriately Dressed, Mild Distress, Tremorous, Anxious, Other (Patient wearing neck brace.) HEENTM: Yes: Hearing grossly Normal, Normocephalic, Normal Voice, TRE, Pharynx Normal Respiratory: Yes: Chest Non-Tender, No Respiratory Distress, No Accessory Muscle Use, Wheezing Neck: Yes: No masses,lesions,Nodules, Supple, Trachea in good position Breast: Yes: Breast Exam Deferred Cardiology: Yes: Regular Rhythm, Regular Rate, S1, S2 Abdominal: Yes: Normal Bowel Sounds, Non Tender, Flat, Soft Genitourinary: Yes: Within Normal Limits Back: Yes: CVA Tenderness, Decreased Range of Motion Musculoskeletal: Yes: Gait Steady, Back pain, Joint Stiffness, Muscle Pain Extremities: Yes: Normal Capillary Refill, Tremors, Swelling (Noted in bilateral lower legs and feet. Patient reports that this is a chronic occurrence and that he has been up on his feet frequently over last few days. Patient advised to rest feet and legs and to elevate feet in bed as much as possible over next few days.) Neurological: Yes: Fully Oriented, Alert, Normal Mood/Affect, Normal Response Integumentary: Yes: Normal Color, Dry, Warm Lymphatic: Yes: Within Normal Limits - Diagnostic (1) Alcohol dependence with uncomplicated withdrawal Current Visit: Yes Status: Acute (2) Cocaine dependence, uncomplicated Current Visit: Yes Status: Chronic (3) PCP (phencyclidine) abuse Current Visit: Yes Status: Acute (4) Nicotine dependence Current Visit: Yes Status: Chronic Qualifiers: Nicotine product type: cigarettes Substance use status: uncomplicated Qualified Code(s): F17.210 - Nicotine dependence, cigarettes, uncomplicated (5) Varicose veins of lower extremity Current Visit: Yes Status: Chronic Qualifiers: Varicose vein complication: unspecified Laterality: bilateral Qualified Code(s): I83.93 - Asymptomatic varicose veins of bilateral lower extremities (6) History of depression Current Visit: Yes Status: Suspected (7) History of schizophrenia Current Visit: Yes Status: Suspected (8) History of neck injury Current Visit: Yes Status: Acute (9) GERD (gastroesophageal reflux disease) Current Visit: Yes Status: Chronic Qualifiers: Esophagitis presence: esophagitis presence not specified Qualified Code(s) : K21.9 - Gastro-esophageal reflux disease without esophagitis (10) Hep C w/o coma, chronic Current Visit: Yes Status: Resolved Comment: Patient Reports Spontaneously Resolved Without Treatment. (11) Asthma Current Visit: Yes Status: Acute Qualifiers: Asthma severity: mild Asthma persistence: intermittent Asthma complication type: uncomplicated Qualified Code(s): J45.20 - Mild intermittent asthma, uncomplicated (12) Swelling of both lower extremities Current Visit: Yes Status: Chronic Cleared for Admission [facility] - Detox or Rehab [facility] Level of Care: Medically Managed Detox Regimen/Protocol: Librium [facility] Breath Alcohol Content Breath Alcohol Content: 0 Urine Drug Screen - Results Drug Screen Negative: No Urine Drug Screen Results: THC-Marijuana, JESSICA-Cocaine, PCP-Phencyclidine, MTD- Methadone
[2018-05-09] MEDS ORDERED: P-EPHED 60MG/TRIPROLIDI 2.5MG TABLET PO PRN (13:58)
[2018-05-09] MEDS ORDERED: NICOTINE POLACRILEX 4 MG GUM BUC PRN (13:58)
[2018-05-09] MEDS ORDERED: MAGNESIUM CITRATE 300 ML BOTTLE PO PRN (13:58)
[2018-05-09] MEDS ORDERED: guaiFENesin/D-METHORPHAN HB 10 ML UNIT-DOSE CUPS PO PRN (13:58)
[2018-05-09] MEDS ORDERED: LOPERAMIDE HCL 2 MG CAPSULE PO PRN (13:58)
[2018-05-09] MEDS ORDERED: MENTHOL/PHENOL 1 EACH UD MM PRN (13:58)
[2018-05-09] MEDS ORDERED: chlordiazePOXIDE HCL 25 MG CAPSULE PO PRN (13:58)
[2018-05-09] MEDS ORDERED: MAG HYDROX/AL HYDROX/SIMETH 30 ML UNIT-DOSE CUP PO PRN (13:58)
[2018-05-09] MEDS ORDERED: chlordiazePOXIDE HCL 25 MG CAPSULE PO ONE (14:15)
[2018-05-09] MEDS: NICOTINE 21 MG/24 HOURS TOPICAL PATCH TD SCH (15:07)
[2018-05-09] MEDS ORDERED: ALBUTEROL SO4 2.5/IPRATROPIUM 0.5 INH SOL 3 ML VIAL.NEB. NEB PRN (15:37)
[2018-05-09] MEDS ORDERED: ALBUTEROL SO4 8 GM HFA INHALER IH PRN (15:38)
[2018-05-09] MEDS ORDERED: WITCH HAZEL 50% (TUCKS) 40 PAD/JAR PAD TP PRN (15:38)
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
[2018-05-09 17:06] LABS: HEMATOCRIT 35.3 % (35.4-49); HEMOGLOBIN 11.6 GM/dL (11.7-16.9); MCH 30.7 pg (25.7-33.7); MEAN CELL VOLUME 93.1 fl (80-96); MEAN PLT VOLUME 8.5 fl (7.5-11.1); PLATELET COUNT 314 K/MM3 (134-434); RBC 3.79 M/mm3 (4.00-5.60); RDW 14.7 % (11.9-15.9); WHITE BLOOD COUNT 6.6 K/mm3 (4.0-10.0)
[2018-05-09 17:19] LABS: ALBUMIN 3.1 g/dl (3.4-5.0); ANION GAP 8 (8-16); BILIRUBIN,TOTAL 0.3 mg/dL (0.2-1.0); BLOOD UREA NITROGEN 11 mg/dL (7-18); CALCIUM 8.8 mg/dL (8.5-10.1); CHLORIDE 105 mmol/L (98-107); CO2 31 mmol/L (21-32); CREATININE 0.8 mg/dL (0.7-1.3); GLUCOSE,RANDOM 107 mg/dL (74-106); POTASSIUM 4.2 mmol/L (3.5-5.1); SGOT/AST 57 U/L (15-37); SGPT/ALT 59 U/L (12-78); SODIUM 144 mmol/L (136-145)
[2018-05-09 17:20] LABS: ALK PHOS 135 U/L (45-117); TOT PROT 7.6 g/dl (6.4-8.2)
[2018-05-09] MEDS: ASPIRIN 325 MG TABLET PO SCH (17:52)
[2018-05-09] MEDS: chlordiazePOXIDE HCL 25 MG CAPSULE PO SCH ×2 (17:52→22:48)
[2018-05-09] MEDS ORDERED: MELATONIN 5 MG TABLETS PO PRN (22:00)
[2018-05-09] MEDS: SENNOSIDES/DOCUSATE COMBO (SENNA PLUS) TABLET (UD) PO SCH (22:47)
[2018-05-09] MEDS: QUEtiapine FUMARATE 50 MG TABLET PO SCH (22:47)
[2018-05-09] MEDS: THIAMINE HCL 100 MG TABLET (FP) PO SCH (22:48)
[2018-05-09 23:58] LABS: URINE APPEARANCE CLEAR; URINE BILIRUBIN NEGATIVE (<2.0 mg/dL); URINE COLOR AMBER; URINE GLUCOSE (UA) NEGATIVE (NEGATIVE); URINE KETONE NEGATIVE (NEGATIVE); URINE LEUK ESTERASE NEGATIVE (NEGATIVE); URINE NITRITE NEGATIVE (NEGATIVE); URINE PROTEIN NEGATIVE (NEGATIVE)
[2018-05-10] MEDS: ACETAMINOPHEN 325 MG TABLET (FP) PO PRN (04:32)
[2018-05-10] MEDS: chlordiazePOXIDE HCL 25 MG CAPSULE PO SCH ×4 (06:22→22:19)
[2018-05-10] MEDS: METHADONE HCL 40 MG DISPERSABLE TABLET PO SCH (06:22)
[2018-05-10] MEDS: IBUPROFEN 400 MG TABLET (FP) PO PRN (06:23)
[2018-05-10] MEDS: PANTOPRAZOLE 20 MG TABLET (FP) PO SCH (10:35)
[2018-05-10] MEDS: SENNOSIDES/DOCUSATE COMBO (SENNA PLUS) TABLET (UD) PO SCH ×2 (10:35→22:19)
[2018-05-10] MEDS: PRENATAL VITAMINS W/ FOLIC ACID TABLET (FP) PO SCH (10:35)
[2018-05-10] MEDS: NICOTINE 21 MG/24 HOURS TOPICAL PATCH TD SCH (10:35)
[2018-05-10] MEDS: ASPIRIN 325 MG TABLET PO SCH (10:35)
--- NOTE | 2018-05-10 11:36 | EKG ---
Test Reason : Blood Pressure : / mmHG Vent. Rate : 079 BPM Atrial Rate : 079 BPM P-R Int : 174 ms QRS Dur : 084 ms QT Int : 412 ms P-R-T Axes : 073 071 056 degrees QTc Int : 472 ms NORMAL SINUS RHYTHM MINIMAL VOLTAGE CRITERIA FOR LVH, MAY BE NORMAL VARIANT BORDERLINE ECG WHEN COMPARED WITH ECG OF 25-JAN-2018 23:30, NO SIGNIFICANT CHANGE WAS FOUND Confirmed by SAMIRA KAISER, GURWINDER ([id number]) on 05/10/2018 11:36:08 AM Referred By: Confirmed By:GURWINDER HOGAN MD
--- NOTE | 2018-05-10 12:53 | PN ---
[facility] CIWA - CIWA Score Nausea/Vomitin-No Nausea/No Vomiting Muscle Tremors: 3 Anxiety: 4-Mod. Anxious/Guarded Agitation: 3 Paroxysmal Sweats: 3 Orientation: 0-Oriented Tacttile Disturbances: 2-Mild Itch/Numbness/Burn Auditory Disturbances: 0-None Visual Disturbances: 1-Very Mild Sensitivity Headache: 0-None Present CIWA-Ar Total Score: 16 S Progress Note (SOAP) Subjective: Body Aches, Fatigue, Anxious, Sweating. Objective: PATIENT A & O X 2 (UNCERTAIN ABOUT CURRENT DAY / DATE). PATIENT OBSERVED AMBULATING ON UNIT. NO ACUTE DISTRESS. 05/10/18 12:54 Vital Signs Temperature 96.7 F L 05/10/18 09:21 Pulse Rate 98 H 05/10/18 09:21 Respiratory Rate 18 05/10/18 09:21 Blood Pressure 105/78 05/10/18 09:21 O2 Sat by Pulse Oximetry (%) Laboratory Tests 05/09/18 05/09/18 05/09/18 10:53 14:00 14:00 WBC 6.6 RBC 3.79 L Hgb 11.6 L Hct 35.3 L MCV 93.1 MCH 30.7 MCHC 33.0 RDW 14.7 Plt Count 314 D MPV 8.5 Sodium Potassium Chloride Carbon Dioxide Anion Gap BUN Creatinine Creat Clearance w eGFR Random Glucose Calcium Total Bilirubin AST ALT Alkaline Phosphatase Total Protein Albumin Urine Color [place]elyn Urine Appearance Clear Urine pH 5.0 Ur Specific [place] 1.030 Urine Protein Negative Urine Glucose (UA) Negative Urine Ketones Negative Urine Blood Negative Urine Nitrite Negative Urine Bilirubin Negative Urine Urobilinogen 2.0 Ur Leukocyte Esterase Negative RPR Titer HIV 1&2 Antibody Screen Negative HIV P24 Antigen Negative 05/09/18 05/09/18 14:00 14:00 WBC RBC Hgb Hct MCV MCH MCHC RDW Plt Count MPV Sodium 144 Potassium 4.2 Chloride 105 Carbon Dioxide 31 Anion Gap 8 BUN 11 Creatinine 0.8 Creat Clearance w eGFR > 60 Random Glucose 107 H Calcium 8.8 Total Bilirubin 0.3 AST 57 H D ALT 59 D Alkaline Phosphatase 135 H Total Protein 7.6 Albumin 3.1 L Urine Color Urine Appearance Urine pH Ur Specific [place] Urine Protein Urine Glucose (UA) Urine Ketones Urine Blood Urine Nitrite Urine Bilirubin Urine Urobilinogen Ur Leukocyte Esterase RPR Titer Nonreactive HIV 1&2 Antibody Screen HIV P24 Antigen LABS NOTED. 05/10/18 12:55 Assessment: 05/10/18 12:54 WITHDRAWAL SYMPTOMS. ANEMIA. 05/10/18 12:55 Plan: CONTINUE DETOX. INCREASE DAILY PO FLUID INTAKE.
[2018-05-10] MEDS: MAGNESIUM HYDROX 2400MG/30ML ORAL SUSPENSION 30 ML CUP PO PRN (14:18)
[2018-05-10] MEDS: THIAMINE HCL 100 MG TABLET (FP) PO SCH (22:19)
[2018-05-10] MEDS: QUEtiapine FUMARATE 50 MG TABLET PO SCH (22:19)
[2018-05-11] MEDS: chlordiazePOXIDE HCL 25 MG CAPSULE PO SCH ×2 (05:39→10:13)
[2018-05-11] MEDS: METHADONE HCL 40 MG DISPERSABLE TABLET PO SCH (05:39)
[2018-05-11] MEDS: ACETAMINOPHEN 325 MG TABLET (FP) PO PRN ×2 (06:51→22:18)
[2018-05-11] MEDS: PRENATAL VITAMINS W/ FOLIC ACID TABLET (FP) PO SCH (10:13)
[2018-05-11] MEDS: PANTOPRAZOLE 20 MG TABLET (FP) PO SCH (10:13)
[2018-05-11] MEDS: SENNOSIDES/DOCUSATE COMBO (SENNA PLUS) TABLET (UD) PO SCH ×2 (10:14→22:18)
[2018-05-11] MEDS: ASPIRIN 325 MG TABLET PO SCH (10:14)
[2018-05-11] MEDS: NICOTINE 21 MG/24 HOURS TOPICAL PATCH TD SCH (10:15)
[2018-05-11] MEDS: chlordiazePOXIDE 5 MG CAPSULE PO SCH ×2 (17:39→22:17)
--- NOTE | 2018-05-11 18:35 | PN ---
[facility] CIWA - CIWA Score Nausea/Vomitin-No Nausea/No Vomiting Muscle Tremors: None Anxiety: 4-Mod. Anxious/Guarded Agitation: 3 Paroxysmal Sweats: 3 Orientation: 0-Oriented Tacttile Disturbances: 2-Mild Itch/Numbness/Burn Auditory Disturbances: 0-None Visual Disturbances: 1-Very Mild Sensitivity Headache: 0-None Present CIWA-Ar Total Score: 13 [facility] Progress Note (SOAP) Subjective: Body Aches, Anxious, Sweating. Objective: PATIENT A & O X 3, OBSERVED AMBULATING ON UNIT. NO ACUTE DISTRESS. 05/11/18 18:34 Vital Signs Temperature 98.2 F 05/11/18 18:27 Pulse Rate 99 H 05/11/18 18:27 Respiratory Rate 18 05/11/18 18:27 Blood Pressure 118/71 05/11/18 18:27 O2 Sat by Pulse Oximetry (%) Laboratory Tests 05/09/18 05/09/18 05/09/18 10:53 14:00 14:00 WBC 6.6 RBC 3.79 L Hgb 11.6 L Hct 35.3 L MCV 93.1 MCH 30.7 MCHC 33.0 RDW 14.7 Plt Count 314 D MPV 8.5 Sodium Potassium Chloride Carbon Dioxide Anion Gap BUN Creatinine Creat Clearance w eGFR Random Glucose Calcium Total Bilirubin AST ALT Alkaline Phosphatase Total Protein Albumin Urine Color Evelyn Urine Appearance Clear Urine pH 5.0 Ur Specific [place] 1.030 Urine Protein Negative Urine Glucose (UA) Negative Urine Ketones Negative Urine Blood Negative Urine Nitrite Negative Urine Bilirubin Negative Urine Urobilinogen 2.0 Ur Leukocyte Esterase Negative RPR Titer HIV 1&2 Antibody Screen Negative HIV P24 Antigen Negative 05/09/18 05/09/18 14:00 14:00 WBC RBC Hgb Hct MCV MCH MCHC RDW Plt Count MPV Sodium 144 Potassium 4.2 Chloride 105 Carbon Dioxide 31 Anion Gap 8 BUN 11 Creatinine 0.8 Creat Clearance w eGFR > 60 Random Glucose 107 H Calcium 8.8 Total Bilirubin 0.3 AST 57 H D ALT 59 D Alkaline Phosphatase 135 H Total Protein 7.6 Albumin 3.1 L Urine Color Urine Appearance Urine pH Ur Specific [place] Urine Protein Urine Glucose (UA) Urine Ketones Urine Blood Urine Nitrite Urine Bilirubin Urine Urobilinogen Ur Leukocyte Esterase RPR Titer Nonreactive HIV 1&2 Antibody Screen HIV P24 Antigen LABS NOTED. Assessment: 05/11/18 18:34 WITHDRAWAL SYMPTOMS. ANEMIA. 05/11/18 18:35 Plan: CONTINUE DETOX.
[2018-05-11] MEDS: QUEtiapine FUMARATE 50 MG TABLET PO SCH (22:17)
[2018-05-11] MEDS: THIAMINE HCL 100 MG TABLET (FP) PO SCH (22:17)
[2018-05-12] MEDS: chlordiazePOXIDE 5 MG CAPSULE PO SCH ×2 (05:52→10:08)
[2018-05-12] MEDS: METHADONE HCL 40 MG DISPERSABLE TABLET PO SCH (05:52)
[2018-05-12] MEDS: IBUPROFEN 400 MG TABLET (FP) PO PRN ×2 (05:56→19:11)
[2018-05-12] MEDS: SENNOSIDES/DOCUSATE COMBO (SENNA PLUS) TABLET (UD) PO SCH ×2 (10:08→22:22)
[2018-05-12] MEDS: NICOTINE 21 MG/24 HOURS TOPICAL PATCH TD SCH (10:08)
[2018-05-12] MEDS: PRENATAL VITAMINS W/ FOLIC ACID TABLET (FP) PO SCH (10:08)
[2018-05-12] MEDS: ASPIRIN 325 MG TABLET PO SCH (10:08)
[2018-05-12] MEDS: PANTOPRAZOLE 20 MG TABLET (FP) PO SCH (10:08)
[2018-05-12] MEDS: chlordiazePOXIDE HCL 10 MG CAPSULE PO SCH ×2 (16:33→22:22)
[2018-05-12] MEDS: MAGNESIUM HYDROX 2400MG/30ML ORAL SUSPENSION 30 ML CUP PO PRN (16:33)
--- NOTE | 2018-05-12 17:19 | PN ---
[facility] Progress Note (SOAP) Subjective: pt states that he has pain all over body- fell about 2 weeks ago from 2nd floor of building, was evaluated in ER and treated as needed Objective: 05/12/18 17:17 Vital Signs - 24 hr 05/11/18 05/11/18 05/12/18 18:27 22:56 06:36 Temperature 98.2 F 97.7 F 96.9 F L Pulse Rate 99 H 94 H 82 Respiratory 18 18 18 Rate Blood Pressure 118/71 127/77 126/88 05/12/18 05/12/18 09:21 13:38 Temperature 96.7 F L 96.9 F L Pulse Rate 98 H 90 Respiratory 20 20 Rate Blood Pressure 101/70 106/68 Laboratory Tests 05/09/18 05/09/18 05/09/18 10:53 14:00 14:00 WBC 6.6 RBC 3.79 L Hgb 11.6 L Hct 35.3 L MCV 93.1 MCH 30.7 MCHC 33.0 RDW 14.7 Plt Count 314 D MPV 8.5 Sodium Potassium Chloride Carbon Dioxide Anion Gap BUN Creatinine Creat Clearance w eGFR Random Glucose Calcium Total Bilirubin AST ALT Alkaline Phosphatase Total Protein Albumin Urine Color [place]elyn Urine Appearance Clear Urine pH 5.0 Ur Specific [place] 1.030 Urine Protein Negative Urine Glucose (UA) Negative Urine Ketones Negative Urine Blood Negative Urine Nitrite Negative Urine Bilirubin Negative Urine Urobilinogen 2.0 Ur Leukocyte Esterase Negative RPR Titer HIV 1&2 Antibody Screen Negative HIV P24 Antigen Negative 05/09/18 05/09/18 14:00 14:00 WBC RBC Hgb Hct MCV MCH MCHC RDW Plt Count MPV Sodium 144 Potassium 4.2 Chloride 105 Carbon Dioxide 31 Anion Gap 8 BUN 11 Creatinine 0.8 Creat Clearance w eGFR > 60 Random Glucose 107 H Calcium 8.8 Total Bilirubin 0.3 AST 57 H D ALT 59 D Alkaline Phosphatase 135 H Total Protein 7.6 Albumin 3.1 L Urine Color Urine Appearance Urine pH Ur Specific [place] Urine Protein Urine Glucose (UA) Urine Ketones Urine Blood Urine Nitrite Urine Bilirubin Urine Urobilinogen Ur Leukocyte Esterase RPR Titer Nonreactive HIV 1&2 Antibody Screen HIV P24 Antigen mild anemia nl VS Assessment: 05/12/18 17:18 Patient is here to Detox from alcohol. Plan: continue detox protocol d/w prn the availability of prn meds if needed
[2018-05-12] MEDS: QUEtiapine FUMARATE 50 MG TABLET PO SCH (22:22)
[2018-05-12] MEDS: THIAMINE HCL 100 MG TABLET (FP) PO SCH (22:22)
[2018-05-13] MEDS: METHADONE HCL 40 MG DISPERSABLE TABLET PO SCH (05:46)
[2018-05-13] MEDS: chlordiazePOXIDE HCL 10 MG CAPSULE PO SCH ×2 (05:46→10:44)
[2018-05-13 09:22] VITALS: BP 112/74; PULSE 98; TEMP 96.9
[2018-05-13] MEDS: PANTOPRAZOLE 20 MG TABLET (FP) PO SCH (10:43)
[2018-05-13] MEDS: PRENATAL VITAMINS W/ FOLIC ACID TABLET (FP) PO SCH (10:43)
[2018-05-13] MEDS: NICOTINE 21 MG/24 HOURS TOPICAL PATCH TD SCH (10:43)
[2018-05-13] MEDS: SENNOSIDES/DOCUSATE COMBO (SENNA PLUS) TABLET (UD) PO SCH (10:44)
[2018-05-13] MEDS: ASPIRIN 325 MG TABLET PO SCH (10:44)
--- NOTE | 2018-05-13 12:47 | PN ---
S Progress Note (SOAP) Subjective: DETOX COMPLETED, ALERT O X 3. PT REFERRED TO [facility] [place]. PT REPORTS PREVIOUS PRIMARY CARE WITH [facility] AT [address] [place] [address]. INSTRUCTED TO FOLLOW UP WITH MEDICAL MANAGEMENT AT THE SITE. Objective: 05/13/18 12:47 Vital Signs 05/13/18 05/13/18 06:22 09:22 Temperature 97 F L 96.9 F L Pulse Rate 87 98 H Respiratory 20 20 Rate Blood Pressure 125/79 112/74 Laboratory Tests 05/09/18 05/09/18 05/09/18 10:53 14:00 14:00 WBC 6.6 RBC 3.79 L Hgb 11.6 L Hct 35.3 L MCV 93.1 MCH 30.7 MCHC 33.0 RDW 14.7 Plt Count 314 D MPV 8.5 Sodium Potassium Chloride Carbon Dioxide Anion Gap BUN Creatinine Creat Clearance w eGFR Random Glucose Calcium Total Bilirubin AST ALT Alkaline Phosphatase Total Protein Albumin Urine Color Evelyn Urine Appearance Clear Urine pH 5.0 Ur Specific [place] 1.030 Urine Protein Negative Urine Glucose (UA) Negative Urine Ketones Negative Urine Blood Negative Urine Nitrite Negative Urine Bilirubin Negative Urine Urobilinogen 2.0 Ur Leukocyte Esterase Negative RPR Titer HIV 1&2 Antibody Screen Negative HIV P24 Antigen Negative 05/09/18 05/09/18 14:00 14:00 WBC RBC Hgb Hct MCV MCH MCHC RDW Plt Count MPV Sodium 144 Potassium 4.2 Chloride 105 Carbon Dioxide 31 Anion Gap 8 BUN 11 Creatinine 0.8 Creat Clearance w eGFR > 60 Random Glucose 107 H Calcium 8.8 Total Bilirubin 0.3 AST 57 H D ALT 59 D Alkaline Phosphatase 135 H Total Protein 7.6 Albumin 3.1 L Urine Color Urine Appearance Urine pH Ur Specific [place] Urine Protein Urine Glucose (UA) Urine Ketones Urine Blood Urine Nitrite Urine Bilirubin Urine Urobilinogen Ur Leukocyte Esterase RPR Titer Nonreactive HIV 1&2 Antibody Screen HIV P24 Antigen Assessment: 05/13/18 12:49 MEDICALLY STABLE Plan: D/C PT TODAY TO REHAB
--- NOTE | 2018-05-13 12:53 | DS ---
[facility] Detox Discharge Summary Admission Date: 05/09/18 Discharge Date: 05/13/18 - History Present History: Alcohol Dependence, Cocaine Dependence, Pcp Dependence Additional Comments: DETOX COMPLETED. ALERT O X 3. NAD. Pertinent Past History: PLEASE SEE DX BELOW - Physical Exam Results Vital Signs: Vital Signs Temperature 96.9 F L 05/13/18 09:22 Pulse Rate 98 H 05/13/18 09:22 Respiratory Rate 20 05/13/18 09:22 Blood Pressure 112/74 05/13/18 09:22 O2 Sat by Pulse Oximetry (%) Pertinent Admission Physical Exam Findings: WITHDRAWAL SX Laboratory Tests 05/09/18 05/09/18 05/09/18 10:53 14:00 14:00 WBC 6.6 RBC 3.79 L Hgb 11.6 L Hct 35.3 L MCV 93.1 MCH 30.7 MCHC 33.0 RDW 14.7 Plt Count 314 D MPV 8.5 Sodium Potassium Chloride Carbon Dioxide Anion Gap BUN Creatinine Creat Clearance w eGFR Random Glucose Calcium Total Bilirubin AST ALT Alkaline Phosphatase Total Protein Albumin Urine Color Evelyn Urine Appearance Clear Urine pH 5.0 Ur Specific [place] 1.030 Urine Protein Negative Urine Glucose (UA) Negative Urine Ketones Negative Urine Blood Negative Urine Nitrite Negative Urine Bilirubin Negative Urine Urobilinogen 2.0 Ur Leukocyte Esterase Negative RPR Titer HIV 1&2 Antibody Screen Negative HIV P24 Antigen Negative 05/09/18 05/09/18 14:00 14:00 WBC RBC Hgb Hct MCV MCH MCHC RDW Plt Count MPV Sodium 144 Potassium 4.2 Chloride 105 Carbon Dioxide 31 Anion Gap 8 BUN 11 Creatinine 0.8 Creat Clearance w eGFR > 60 Random Glucose 107 H Calcium 8.8 Total Bilirubin 0.3 AST 57 H D ALT 59 D Alkaline Phosphatase 135 H Total Protein 7.6 Albumin 3.1 L Urine Color Urine Appearance Urine pH Ur Specific [place] Urine Protein Urine Glucose (UA) Urine Ketones Urine Blood Urine Nitrite Urine Bilirubin Urine Urobilinogen Ur Leukocyte Esterase RPR Titer Nonreactive HIV 1&2 Antibody Screen HIV P24 Antigen - Treatment Hospital Course: Detox Protocol Followed, Detoxed Safely, Responded well, Discharged Condition Good, Rehab Referral Accepted Patient has Accepted a Rehab Referral to: [address] - [facility] Discharge Medications: Ambulatory Orders Zolpidem Tartrate [Ambien] 10 mg PO HS 01/25/18 Paroxetine HCl [Paxil -] 40 mg PO HS 01/26/18 Quetiapine Fumarate "Xr" [Seroquel XR] 300 mg PO BID 01/26/18 Albuterol Sulfate Inhaler - [Ventolin Hfa Inhaler -] 2 inh PO Q4H PRN 05/09/18 Aspirin [ASA -] 325 mg PO DAILY 05/09/18 Paroxetine HCl [Paxil -] 10 mg PO HS 05/09/18 Quetiapine Fumarate [Seroquel] 50 mg PO HS 05/09/18 - Diagnosis (1) Alcohol dependence with uncomplicated withdrawal Current Visit: Yes Status: Acute (2) Nicotine dependence Current Visit: Yes Status: Acute Qualifiers: Nicotine product type: cigarettes Substance use status: in withdrawal Qualified Code(s): F17.213 - Nicotine dependence, cigarettes, with withdrawal (3) PCP dependence Current Visit: Yes Status: Acute (4) Asthma Current Visit: Yes Status: Chronic Qualifiers: Asthma severity: mild Asthma persistence: unspecified Asthma complication type: uncomplicated Qualified Code(s): J45.909 - Unspecified asthma, uncomplicated (5) GERD (gastroesophageal reflux disease) Current Visit: Yes Status: Chronic Qualifiers: Esophagitis presence: esophagitis presence not specified Qualified Code(s) : K21.9 - Gastro-esophageal reflux disease without esophagitis (6) Methadone maintenance therapy patient Current Visit: Yes Status: Chronic (7) Varicose vein Current Visit: Yes Status: Chronic - AMA Did Patient Leave Against Medical Advice: No
== END 2018-05-13 12:40 | disposition other institution (70) | DRG 773 ==
LOC: YASAS 09:40 → Y3N 13:25
PROVIDERS: ADMIT Surgery; ATTEND Surgery
PROC: HZ2ZZZZ Detoxification Services for Substance Abuse Treatment (ICD-10-PCS; principal; 2018-05-09)
DX: F10.230 Alcohol dependence with withdrawal, uncomplicated (principal); F14.20 Cocaine dependence, uncomplicated; F16.20 Hallucinogen dependence, uncomplicated; F11.20 Opioid dependence, uncomplicated; F17.213 Nicotine dependence, cigarettes, with withdrawal; F19.24 Other psychoactive substance dependence with psychoactive substance-induced mood disorder; J45.909 Unspecified asthma, uncomplicated; K21.9 Gastro-esophageal reflux disease without esophagitis; I83.93 Asymptomatic varicose veins of bilateral lower extremities; R60.0 Localized edema; Z86.59 Personal history of other mental and behavioral disorders; Z86.19 Personal history of other infectious and parasitic diseases
CPT/HCPCS: 36415; 80053; 81003; 85027; 86593; 87389; 93005; 93010

== ENCOUNTER 2018-05-13 12:45 | Inpatient (IN) | payer OTHER ==
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
[2018-05-13] MEDS ORDERED: MAG HYDROX/AL HYDROX/SIMETH 30 ML UNIT-DOSE CUP PO PRN (16:13)
[2018-05-13] MEDS ORDERED: LOPERAMIDE HCL 2 MG CAPSULE PO PRN (16:13)
[2018-05-13] MEDS ORDERED: guaiFENesin/D-METHORPHAN HB 10 ML UNIT-DOSE CUPS PO PRN (16:13)
[2018-05-13] MEDS ORDERED: MENTHOL/PHENOL 1 EACH UD MM PRN (16:13)
[2018-05-13] MEDS ORDERED: P-EPHED 60MG/TRIPROLIDI 2.5MG TABLET PO PRN (16:13)
[2018-05-13] MEDS ORDERED: IBUPROFEN 400 MG TABLET (FP) PO PRN (16:13)
[2018-05-13] MEDS ORDERED: MAGNESIUM CITRATE 300 ML BOTTLE PO PRN (16:13)
[2018-05-13] MEDS ORDERED: NICOTINE POLACRILEX 2 MG GUM BUC PRN ×2 (16:13→16:15)
--- NOTE | 2018-05-13 16:14 | HP ---
[facility] Re[facility] Assess/Revision - Admission History Admitted to Rehab from: [facility] Date of Admission to Rehab: 05/13/18 - Vital signs Vital Signs: Vital Signs Period Temp Pulse Resp BP Sys/Cotton Pulse Ox Last 24 Hr 89-89 18-18 107-107/67-67 - Findings Detox History & Physical reviewed: Yes Concur with findings: Yes Inpatient Rehab Admission - Initial Determination Are CD services needed?: Yes Free of communicable disease: Yes Not in need of hospitalization: Yes - Rehab Admission Criteria Previous failed treatment: Yes Poor recovery environment: Yes Comorbidities: Yes Lacks judgement: Yes Patient is meeting Inpatient Rehab admission criteria:: Yes
[2018-05-13] MEDS ORDERED: PNEUMOC 13-VAL CONJ-DIP CRM/PF 0.5 ML DISP.SYRIN IM ONE (17:30)
--- NOTE | 2018-05-13 19:29 | PN ---
[facility] Progress Note Note: Patient c/o of not feeling well and chest pain that midternal and midback ( thorasic ) pain. Denies SOB, vertigo, paresthesia EKG: NSR v/s BP 121/83, P88, P20, T 97.8 A/P AOX3 s1 s2 no JVD ( chets pain non reproducible) no adventitious breath sounds skin intact, no edema, pulses present through out full ROM, cane for ambulation - chest pain Plan: EKG ordered Patient to be evaluated at the [facility], transferred via [facility] endorsed to Toshia Nugent
[2018-05-13] MEDS: CYCLOBENZAPRINE HCL 5 MG TABLET PO SCH (22:05)
[2018-05-13] MEDS: THIAMINE HCL 100 MG TABLET (FP) PO SCH (22:06)
--- NOTE | 2018-05-13 23:59 | PN ---
S Progress Note Note: Vital Signs Temperature Pulse Rate 89 05/13/18 13:33 Respiratory Rate 18 05/13/18 13:33 Blood Pressure 107/67 05/13/18 13:33 O2 Sat by Pulse Oximetry (%) Patient was evaluated and cleared at the ED for chest pain, patient returned to Rehab to continue treatment.
[2018-05-14] MEDS: METHADONE HCL 40 MG DISPERSABLE TABLET PO SCH (06:11)
[2018-05-14] MEDS: CYCLOBENZAPRINE HCL 5 MG TABLET PO SCH ×3 (06:12→21:24)
[2018-05-14] MEDS ORDERED: NICOTINE 14 MG/24 HOURS TOPICAL PATCH TD SCH (10:00)
[2018-05-14] MEDS: NICOTINE 14 MG/24 HOURS TOPICAL PATCH TD SCH (10:10)
[2018-05-14] MEDS: ASPIRIN 325 MG TABLET PO SCH (10:10)
[2018-05-14] MEDS: PRENATAL VITAMINS W/ FOLIC ACID TABLET (FP) PO SCH (10:10)
[2018-05-14] MEDS ORDERED: PNEUMOCOCCAL 23 VACCINE 0.5 ML VIAL IM ONE (12:00)
[2018-05-14] MEDS: ACETAMINOPHEN 325 MG TABLET (FP) PO PRN (16:28)
--- NOTE | 2018-05-14 16:44 | PN ---
[facility] Progress Note Note: Vital Signs Temperature 97.9 F 05/14/18 07:08 Pulse Rate 90 05/14/18 15:56 Respiratory Rate 18 05/14/18 15:56 Blood Pressure 106/66 05/14/18 15:56 O2 Sat by Pulse Oximetry (%) s/p unwitnessed fall, reports woke up from his bed sat up felt dizzy and fell on his left side. As per patient Patient AO3, no changes in LOC s1 s2 no JVD lungs clear throughout no adventitious breath sounds Skin intact no erythema or edema Full ROM ambulating with cane with out difficulties no signs or injury or trauma - fall Plan: Fall Protocol #1 Patient refuse to go to the ED Risk discussed with patient of declining ED evaluation, patient verbalize understanding
--- NOTE | 2018-05-14 17:06 | EKG ---
Test Reason : Blood Pressure : / mmHG Vent. Rate : 088 BPM Atrial Rate : 088 BPM P-R Int : 190 ms QRS Dur : 088 ms QT Int : 384 ms P-R-T Axes : 065 058 041 degrees QTc Int : 464 ms NORMAL SINUS RHYTHM NORMAL ECG WHEN COMPARED WITH ECG OF 09-MAY-2018 14:48, NO SIGNIFICANT CHANGE WAS FOUND Confirmed by MD Hicks Edward ([id number]) on 05/14/2018 5:06:25 PM Referred By: Confirmed By:Jayson Hicks MD
[2018-05-14] MEDS: THIAMINE HCL 100 MG TABLET (FP) PO SCH (21:24)
[2018-05-15] MEDS: CYCLOBENZAPRINE HCL 5 MG TABLET PO SCH ×3 (06:03→21:15)
[2018-05-15] MEDS: METHADONE HCL 40 MG DISPERSABLE TABLET PO SCH (06:03)
[2018-05-15] MEDS: PRENATAL VITAMINS W/ FOLIC ACID TABLET (FP) PO SCH (10:03)
[2018-05-15] MEDS: ASPIRIN 325 MG TABLET PO SCH (10:03)
[2018-05-15] MEDS: NICOTINE 14 MG/24 HOURS TOPICAL PATCH TD SCH (10:04)
[2018-05-15] MEDS: THIAMINE HCL 100 MG TABLET (FP) PO SCH (21:14)
[2018-05-15] MEDS: ACETAMINOPHEN 325 MG TABLET (FP) PO PRN (21:15)
[2018-05-15] MEDS: ALBUTEROL SO4 8 GM HFA INHALER IH PRN (21:37)
[2018-05-16] MEDS: METHADONE HCL 40 MG DISPERSABLE TABLET PO SCH (06:00)
[2018-05-16] MEDS: CYCLOBENZAPRINE HCL 5 MG TABLET PO SCH ×3 (06:00→21:15)
[2018-05-16] MEDS: PRENATAL VITAMINS W/ FOLIC ACID TABLET (FP) PO SCH (09:23)
[2018-05-16] MEDS: ASPIRIN 325 MG TABLET PO SCH (09:23)
[2018-05-16] MEDS: NICOTINE 14 MG/24 HOURS TOPICAL PATCH TD SCH (09:24)
--- NOTE | 2018-05-16 11:19 | PN ---
[facility] Progress Note Note: Vital Signs Temperature 97.5 F L 05/16/18 06:53 Pulse Rate 83 05/16/18 06:53 Respiratory Rate 18 05/16/18 06:53 Blood Pressure 123/90 05/16/18 06:53 O2 Sat by Pulse Oximetry (%) Patient c/o of bilateral leg edema Patient AOx3 no distress no adventitious breath sounds no JVD + edema + both ankles and legs, non pitting, no erythema edema Plan: leg elevation low sodium diet increase fluids TEDS continue to monitor
[2018-05-16] MEDS: MAGNESIUM HYDROX 2400MG/30ML ORAL SUSPENSION 30 ML CUP PO PRN (12:47)
[2018-05-16] MEDS: ACETAMINOPHEN 325 MG TABLET (FP) PO PRN (19:00)
[2018-05-16] MEDS: THIAMINE HCL 100 MG TABLET (FP) PO SCH (21:15)
[2018-05-17] MEDS: METHADONE HCL 40 MG DISPERSABLE TABLET PO SCH (05:58)
[2018-05-17] MEDS: CYCLOBENZAPRINE HCL 5 MG TABLET PO SCH ×3 (05:58→21:41)
[2018-05-17] MEDS: PRENATAL VITAMINS W/ FOLIC ACID TABLET (FP) PO SCH (09:43)
[2018-05-17] MEDS: ASPIRIN 325 MG TABLET PO SCH (09:43)
[2018-05-17] MEDS: NICOTINE 14 MG/24 HOURS TOPICAL PATCH TD SCH (09:44)
[2018-05-17] MEDS: ALBUTEROL SO4 8 GM HFA INHALER IH PRN (14:30)
[2018-05-17] MEDS: MELATONIN 5 MG TABLETS PO PRN (21:41)
[2018-05-17] MEDS: THIAMINE HCL 100 MG TABLET (FP) PO SCH (21:41)
[2018-05-18] MEDS: METHADONE HCL 40 MG DISPERSABLE TABLET PO SCH (05:51)
[2018-05-18] MEDS: CYCLOBENZAPRINE HCL 5 MG TABLET PO SCH ×3 (05:51→21:15)
[2018-05-18] MEDS ORDERED: PT OWN MED DRAWER 7, Y5N ONE (08:42)
[2018-05-18] MEDS: ASPIRIN 325 MG TABLET PO SCH (09:54)
[2018-05-18] MEDS: PRENATAL VITAMINS W/ FOLIC ACID TABLET (FP) PO SCH (09:54)
[2018-05-18] MEDS: ALBUTEROL SO4 8 GM HFA INHALER IH PRN (09:55)
[2018-05-18] MEDS: NICOTINE 14 MG/24 HOURS TOPICAL PATCH TD SCH (09:55)
[2018-05-18] MEDS: THIAMINE HCL 100 MG TABLET (FP) PO SCH (21:15)
[2018-05-19] MEDS: METHADONE HCL 40 MG DISPERSABLE TABLET PO SCH (05:50)
[2018-05-19] MEDS: CYCLOBENZAPRINE HCL 5 MG TABLET PO SCH (05:50)
[2018-05-19] MEDS ORDERED: PT OWN MED DRAWER 7, Y5N ONE ×2 (08:39→22:28)
[2018-05-19] MEDS: PRENATAL VITAMINS W/ FOLIC ACID TABLET (FP) PO SCH (10:00)
[2018-05-19] MEDS: ASPIRIN 325 MG TABLET PO SCH (10:00)
[2018-05-19] MEDS: NICOTINE 14 MG/24 HOURS TOPICAL PATCH TD SCH (10:00)
[2018-05-19] MEDS: CYCLOBENZAPRINE HCL 10 MG TABLET (FP) PO SCH ×2 (14:13→21:49)
[2018-05-19] MEDS: THIAMINE HCL 100 MG TABLET (FP) PO SCH (21:49)
[2018-05-19] MEDS: MELATONIN 5 MG TABLETS PO PRN (21:49)
[2018-05-20] MEDS ORDERED: PT OWN MED DRAWER 7, Y5N ONE (02:51)
[2018-05-20] MEDS: METHADONE HCL 40 MG DISPERSABLE TABLET PO SCH (06:25)
[2018-05-20] MEDS: CYCLOBENZAPRINE HCL 10 MG TABLET (FP) PO SCH ×3 (06:25→21:14)
[2018-05-20] MEDS: PRENATAL VITAMINS W/ FOLIC ACID TABLET (FP) PO SCH (09:52)
[2018-05-20] MEDS: NICOTINE 14 MG/24 HOURS TOPICAL PATCH TD SCH (09:53)
[2018-05-20] MEDS: ASPIRIN 325 MG TABLET PO SCH (09:53)
[2018-05-20] MEDS: THIAMINE HCL 100 MG TABLET (FP) PO SCH (21:13)
[2018-05-20] MEDS: MELATONIN 5 MG TABLETS PO PRN (21:14)
[2018-05-20] MEDS: ACETAMINOPHEN 325 MG TABLET (FP) PO PRN (21:56)
[2018-05-21] MEDS: METHADONE HCL 40 MG DISPERSABLE TABLET PO SCH (05:59)
[2018-05-21] MEDS: CYCLOBENZAPRINE HCL 10 MG TABLET (FP) PO SCH ×2 (05:59→14:30)
[2018-05-21] MEDS: ALBUTEROL SO4 8 GM HFA INHALER IH PRN ×3 (06:01→21:28)
[2018-05-21] MEDS: ASPIRIN 325 MG TABLET PO SCH (10:09)
[2018-05-21] MEDS: PRENATAL VITAMINS W/ FOLIC ACID TABLET (FP) PO SCH (10:09)
[2018-05-21] MEDS: NICOTINE 14 MG/24 HOURS TOPICAL PATCH TD SCH (10:09)
[2018-05-21] MEDS: CYCLOBENZAPRINE HCL 5 MG TABLET PO SCH (21:27)
[2018-05-21] MEDS: THIAMINE HCL 100 MG TABLET (FP) PO SCH (21:27)
[2018-05-22] MEDS: METHADONE HCL 40 MG DISPERSABLE TABLET PO SCH (06:19)
[2018-05-22] MEDS: CYCLOBENZAPRINE HCL 5 MG TABLET PO SCH ×3 (06:19→21:43)
[2018-05-22] MEDS: ALBUTEROL SO4 8 GM HFA INHALER IH PRN (07:13)
[2018-05-22] MEDS: ASPIRIN 325 MG TABLET PO SCH (10:06)
[2018-05-22] MEDS: NICOTINE 14 MG/24 HOURS TOPICAL PATCH TD SCH (10:06)
[2018-05-22] MEDS: PRENATAL VITAMINS W/ FOLIC ACID TABLET (FP) PO SCH (10:06)
[2018-05-22] MEDS: THIAMINE HCL 100 MG TABLET (FP) PO SCH (21:43)
[2018-05-22] MEDS: MELATONIN 5 MG TABLETS PO PRN (21:43)
[2018-05-23] MEDS: METHADONE HCL 40 MG DISPERSABLE TABLET PO SCH (06:33)
[2018-05-23] MEDS: CYCLOBENZAPRINE HCL 5 MG TABLET PO SCH ×3 (06:34→21:55)
[2018-05-23] MEDS: ASPIRIN 325 MG TABLET PO SCH (10:12)
[2018-05-23] MEDS: PRENATAL VITAMINS W/ FOLIC ACID TABLET (FP) PO SCH (10:12)
[2018-05-23] MEDS: NICOTINE 14 MG/24 HOURS TOPICAL PATCH TD SCH (10:12)
[2018-05-23] MEDS: ALBUTEROL SO4 8 GM HFA INHALER IH PRN (10:13)
[2018-05-23] MEDS: MELATONIN 5 MG TABLETS PO PRN (21:55)
[2018-05-23] MEDS: THIAMINE HCL 100 MG TABLET (FP) PO SCH (21:55)
[2018-05-23] MEDS: ACETAMINOPHEN 325 MG TABLET (FP) PO PRN (21:55)
[2018-05-24] MEDS: CYCLOBENZAPRINE HCL 5 MG TABLET PO SCH ×3 (06:17→21:44)
[2018-05-24] MEDS: METHADONE HCL 40 MG DISPERSABLE TABLET PO SCH (06:17)
[2018-05-24] MEDS: ASPIRIN 325 MG TABLET PO SCH (10:11)
[2018-05-24] MEDS: PRENATAL VITAMINS W/ FOLIC ACID TABLET (FP) PO SCH (10:11)
[2018-05-24] MEDS: NICOTINE 14 MG/24 HOURS TOPICAL PATCH TD SCH (10:11)
[2018-05-24] MEDS: MELATONIN 5 MG TABLETS PO PRN (21:44)
[2018-05-24] MEDS: THIAMINE HCL 100 MG TABLET (FP) PO SCH (21:44)
[2018-05-24] MEDS: ACETAMINOPHEN 325 MG TABLET (FP) PO PRN (21:45)
[2018-05-25] MEDS: METHADONE HCL 40 MG DISPERSABLE TABLET PO SCH (06:17)
[2018-05-25] MEDS: CYCLOBENZAPRINE HCL 5 MG TABLET PO SCH ×3 (06:17→21:14)
[2018-05-25] MEDS: ASPIRIN 325 MG TABLET PO SCH (09:51)
[2018-05-25] MEDS: NICOTINE 14 MG/24 HOURS TOPICAL PATCH TD SCH (09:51)
[2018-05-25] MEDS: PRENATAL VITAMINS W/ FOLIC ACID TABLET (FP) PO SCH (09:51)
[2018-05-25] MEDS ORDERED: PT OWN MED DRAWER 7, Y5N ONE (20:47)
[2018-05-25] MEDS: MELATONIN 5 MG TABLETS PO PRN (21:14)
[2018-05-25] MEDS: THIAMINE HCL 100 MG TABLET (FP) PO SCH (21:14)
[2018-05-25] MEDS: ALBUTEROL SO4 8 GM HFA INHALER IH PRN (21:20)
[2018-05-26] MEDS: CYCLOBENZAPRINE HCL 5 MG TABLET PO SCH ×3 (06:23→21:24)
[2018-05-26] MEDS: METHADONE HCL 40 MG DISPERSABLE TABLET PO SCH (06:23)
--- NOTE | 2018-05-26 08:09 | PN ---
Psychiatric Progress Note Vital Signs: Vital Signs Period Temp Pulse Resp BP Sys/Cotton Pulse Ox Last 24 Hr 98.1 F 94 18-20 139/89 Date of Session: 05/26/18 Chief Complaint:: Discharge Note HPI: Patient addressing Alcohol, Cocaine and Phencyclidine Dependence comorbid with Opioid Dependence on Agonist Therapy, Nicotine Dependence and Schizophrenia ROS: Asthma, GERD, Hep C Current Medications: Active Medications Generic Name Dose Route Start Last Admin Trade Name Freq PRN Reason Stop Dose Admin Acetaminophen 650 mg 05/13/18 16:13 05/24/18 21:45 Tylenol - PO 650 mg Q4H PRN Administration FEVER Al Hydroxide/Mg Hydroxide 30 ml 05/13/18 16:13 Mylanta Oral Suspension - PO Q6H PRN DYSPEPSIA Albuterol Sulfate 2 puff 05/13/18 16:13 05/25/18 21:20 Ventolin Hfa Inhaler - IH 2 puff Q4H PRN Administration SHORTNESS OF BREATH Aspirin 325 mg 05/14/18 10:00 05/25/18 09:51 Asa - PO 325 mg DAILY FUAD Administration Cyclobenzaprine HCl 5 mg 05/21/18 22:00 05/26/18 06:23 Cyclobenzaprine Hcl PO 5 mg TID FUAD Administration Eucalyptus/Menthol/Phenol/Sorbitol 1 each 05/13/18 16:13 Cepastat Lozenge - MM Q4H PRN SORE THROAT Guaifenesin 10 ml 05/13/18 16:13 Robitussin Dm - PO Q6H PRN COUGH Loperamide HCl 4 mg 05/13/18 16:13 Imodium - PO Q6H PRN DIARRHEA Magnesium Citrate 300 ml 05/13/18 16:13 Citroma - PO Q48H PRN CONSTIPATION Magnesium Hydroxide 30 ml 05/13/18 16:13 05/16/18 12:47 Milk Of Magnesia - PO 30 ml DAILY PRN Administration CONSTIPATION Melatonin 5 mg 05/13/18 22:00 05/25/18 21:14 Melatonin PO 5 mg HS PRN Administration INSOMNIA Methadone HCl 40 mg 05/21/18 06:00 05/26/18 06:23 Dolophine - PO 05/28/18 05:59 40 mg DAILY@0600 FUAD Administration Nicotine 21 mg 05/14/18 10:00 05/25/18 09:51 Nicoderm Patch - TD 21 mg DAILY FUAD Administration Nicotine Polacrilex 4 mg 05/13/18 16:15 Nicorette Gum - BUC Q2H PRN NICOTINE REPLACEMENT RX Multivit/Folic Acid/Iron 1 tab 05/14/18 10:00 05/25/18 09:51 Vitamins (Sjr) - PO 1 tab DAILY FUAD Administration Pseudoephedrine/Triprolidine 1 combo 05/13/18 16:13 Actifed - PO TID PRN NASAL CONGESTION Thiamine HCl 100 mg 05/13/18 22:00 05/25/18 21:14 Vitamin B1 - PO 100 mg HS FUAD Administration Current Side Effect: No Lab tests ordered: Yes Lab tests reviewed: Yes Provider note:: Patient will complete this program on 05/27/18. He has met his treatment goals and will continue to address his issues in outpatient treatment at [facility]. Told continuity writer that from his participation in this program, he has learned the importance of surrounding himself with a sober support network in ordr to maintian abstinence. He is stable for discharge on 05/27/18 Total face to face time:: 35 Mental Status Exam - Mental Status Exam Alert and Oriented to: Time, Place, Person Cognitive Function: Fair Patient Appearance: Well Groomed Mood: Hopeful, Euthymic Affect: Appropriate Patient Behavior: Cooperative Speech Pattern: Clear Voice Loudness: Normal Thought Process: Intact, Goal Oriented Thought Disorder: Not Present Hallucinations: Denies Suicidal Ideation: Denies Homicidal Ideation: Denies Insight/Judgement: Fair Sleep: Fair Appetite: Good Muscle strength/Tone: Normal Gait/Station: Normal Psychiatric Treatment Plan - Problem List (1) Alcohol dependence Current Visit: Yes (2) Cocaine dependence Current Visit: Yes (3) Phencyclidine dependence Current Visit: Yes (4) Opioid dependence on agonist therapy Current Visit: Yes (5) Nicotine dependence Current Visit: No Qualifiers: Nicotine product type: cigarettes Substance use status: in withdrawal Qualified Code(s): F17.213 - Nicotine dependence, cigarettes, with withdrawal (6) Schizophrenia Current Visit: No Comment: history. nonadherent due to not having medications. Pt. agreeable to restarting medications. (7) Asthma Current Visit: No Qualifiers: Asthma severity: mild Asthma persistence: unspecified Asthma complication type: uncomplicated Qualified Code(s): J45.909 - Unspecified asthma, uncomplicated (8) GERD (gastroesophageal reflux disease) Current Visit: No Qualifiers: Esophagitis presence: esophagitis presence not specified Qualified Code(s) : K21.9 - Gastro-esophageal reflux disease without esophagitis (9) Hep C w/o coma, chronic Current Visit: No Comment: Patient Reports Spontaneously Resolved Without Treatment. Initial treatment plan: Patient will be discharged tomorrow and referred to [facility] for outpatient treatment
[2018-05-26] MEDS: NICOTINE 14 MG/24 HOURS TOPICAL PATCH TD SCH (09:43)
[2018-05-26] MEDS: PRENATAL VITAMINS W/ FOLIC ACID TABLET (FP) PO SCH (09:44)
[2018-05-26] MEDS: ASPIRIN 325 MG TABLET PO SCH (09:44)
[2018-05-26] MEDS: MAGNESIUM HYDROX 2400MG/30ML ORAL SUSPENSION 30 ML CUP PO PRN (18:03)
[2018-05-26] MEDS: THIAMINE HCL 100 MG TABLET (FP) PO SCH (21:24)
[2018-05-26] MEDS: MELATONIN 5 MG TABLETS PO PRN (21:25)
[2018-05-27] MEDS: METHADONE HCL 40 MG DISPERSABLE TABLET PO SCH (05:53)
[2018-05-27] MEDS: CYCLOBENZAPRINE HCL 5 MG TABLET PO SCH (05:53)
[2018-05-27 07:15] VITALS: BP 115/81; PULSE 108; TEMP 97.8
== END 2018-05-27 08:45 | disposition home or self-care (01) | DRG 772 ==
LOC: YASAS 12:45 → Y3W 12:47
PROVIDERS: ADMIT Psychiatry & Neurology Psychiatry; ATTEND Psychiatry & Neurology Psychiatry
PROC: HZ42ZZZ Group Counseling for Substance Abuse Treatment, Cognitive-Behavioral (ICD-10-PCS; principal; 2018-05-13)
DX: F10.20 Alcohol dependence, uncomplicated (principal); F11.20 Opioid dependence, uncomplicated; F16.20 Hallucinogen dependence, uncomplicated; F14.20 Cocaine dependence, uncomplicated; F17.213 Nicotine dependence, cigarettes, with withdrawal; J45.998 Other asthma; K21.9 Gastro-esophageal reflux disease without esophagitis; B18.2 Chronic viral hepatitis C; I83.93 Asymptomatic varicose veins of bilateral lower extremities; R60.0 Localized edema; R07.9 Chest pain, unspecified; W06.XXXA Fall from bed, initial encounter; Y93.89 Activity, other specified; Y92.230 Patient room in hospital as the place of occurrence of the external cause
CPT/HCPCS: 90732; 93005; 93010; G0009

== ENCOUNTER 2018-05-13 20:14 | Emergency (ER) | payer OTHER ==
--- NOTE | 2018-05-13 20:30 | PDOC ---
History of Present Illness - General Stated Complaint: CHEST PAIN Time Seen by Provider: 05/13/18 20:30 - History of Present Illness Initial Comments: 05/13/18 21:48 The patient is a 52 year old male with a history of HTN, Hep C, PCP abuse, Cocaine Abuse, Alcohol abuse who presents from [facility] for evaluation of chest pain. The patient reports a several hour history of lower mid chest pain with some radiation to his back prompting his presentation to the ED. The pain is poorly described and he denies similar symptoms in the past. He otherwise denies fevers, chills, SOB, nausea, vomiting, abdominal pain, or changes with urination or bowel movements. Past History - Past Medical History Allergies/Adverse Reactions: Allergies Allergy/AdvReac Type Severity Reaction Status Date / Time No Known Allergies Allergy Verified 05/13/18 20:34 Home Medications: Ambulatory Orders Zolpidem Tartrate [Ambien] 10 mg PO HS 01/25/18 Paroxetine HCl [Paxil -] 40 mg PO HS 01/26/18 Quetiapine Fumarate "Xr" [Seroquel XR] 300 mg PO BID 01/26/18 Albuterol Sulfate Inhaler - [Ventolin Hfa Inhaler -] 2 inh PO Q4H PRN 05/09/18 Aspirin [ASA -] 325 mg PO DAILY 05/09/18 Paroxetine HCl [Paxil -] 10 mg PO HS 05/09/18 Quetiapine Fumarate [Seroquel] 50 mg PO HS 05/09/18 Anemia: No Asthma: Yes Cancer: No Cardiac Disorders: No CVA: No COPD: No CHF: No Dementia: No Diabetes: No GI Disorders: No Disorders: No HTN: Yes Hypercholesterolemia: No Kidney Stones: No Liver Disease: Yes (Hep C, Cleared without medication.) Psychiatric Problems: Yes Seizures: No Thyroid Disease: No - Surgical History Abdominal Surgery: No Appendectomy: No Cardiac Surgery: No Cholecystectomy: No Lung Surgery: No Neurologic Surgery: No Orthopedic Surgery: No - Reproductive History Testicular Surgery: No - Immunization History Immunization Up to Date: Yes - Suicide/Smoking/Psychosocial Hx Smoking History: Current every day smoker Have you smoked in the past 12 months: Yes Number of Cigarettes Smoked Daily: 40 Cigars Per Day: 0 'Breaking Loose' booklet given: 05/09/18 (GIVEN TO PATIENT.) Hx Alcohol Use: Yes Drug/Substance Use Hx: Yes (Began pcp at 18, consumes $20/day. Last smoked on ) Substance Use Type: Alcohol (Started drinkink alcohol at age 15, comsumes 1.5 pint of rum & 2x 6pk of beer daily. Last drank on 05/08/18), Cocaine (Started smoking crack cocaine at age 12, consumes $50 worth daily. Last smoked on ) Hx Substance Use Treatment: Yes Review of Systems - Review of Systems Comments:: 05/13/18 21:50 Constitutional: No fevers, chills, fatigue, malaise HEENT: No Rhinorrhea, nasal congestion, visual changes Cardiovascular: Chest pain. No syncope, palpitations, lightheadedness Respiratory: No Cough, SOB, Hemoptysis, Gastrointestinal: No Abdominal pain, Nausea, Vomiting, Constipation, Diarrhea, Melena Genitourinary: No Dysuria, Frequency, Urgency, Hesitancy, Hematuria, Flank pain Musculoskeletal: No Myalgia, arthralgia Skin: No rashes, itching, bruising, pallor Neurologic: No Headache, Dizziness, Numbness, Weakness, or Tingling Psychiatric: No Hallucinations. No SI or HI *Physical Exam - Physical Exam Comments: 05/13/18 21:51 General Appearance: Nourished. No Apparent Distress HEENT: EOMI, TRE. C-collar in place. No Pharyngeal Erythema, Tonsillar Exudate , Tonsillar Erythema Neck: No Cervical Lymphadenopathy Respiratory/Chest: Lungs Clear, Normal Breath Sounds. No Crackles, Rales, Rhonchi, Wheezing Cardiovascular: Regular Rhythm, Regular Rate. No Murmur, Gallops, Rubs Gastrointestinal/Abdominal: Normal Bowel Sounds, Soft. Mild tenderness to palpation in the epigastrium. 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 Heart Score/ECG Review #1 ECG reviewed & interpreted by me at: 21:53 General ECG Interpretation: Sinus Rhythm, Normal Rate, Normal Intervals, No acute ischemic changes ED Treatment Course - LABORATORY CBC & Chemistry Diagram: 05/13/18 22:10 05/13/18 22:10 Medical Decision Making - Medical Decision Making 05/13/18 21:53 The patient is a 52 year old male with a history of HTN, Hep C, PCP abuse, Cocaine Abuse, Alcohol abuse who presents from [facility] for evaluation of chest pain. The patient's pain appears to be more epigastric on exam rather than chest pain. However given the patient's history and physical exam, we will obtain a cbc, cmp, troponin, lipase, ekg, chest plain film to evaluate further for possible etiologies. We will treat in the meantime with iv fluids and pepcid and continue to monitor and reassess. 05/13/18 23:01 CBC, cmp, troponin, lipase are unremarkable. Chest plain film is unremarkable. The patient reports improvement in his symptoms. We are comfortable discharging the patient back to rehab at this time. We discussed the results, plan, and return precautions with the patient who voiced understanding and is agreeable with the plan. *DC/Admit/Observation/Transfer Diagnosis at time of Disposition: Chest pain Qualifiers: Chest pain type: unspecified Qualified Code(s): R07.9 - Chest pain, unspecified - Discharge Dispostion Disposition: HOME Condition at time of disposition: Stable Decision to Admit order: No - Referrals - Patient Instructions Printed Discharge Instructions: DI for Chest Pain Additional Instructions: Please return to the ER if you experience concerning or worsening symptoms including worsening pain, or difficulty breathing. Your lab results were normal here in the ER. Please make sure that you call to schedule a follow up appointment with your primary care provider within 2-3 days to discuss your ER visit and further management of your symptoms. Please make sure that you continue with your rehab program. - Post Discharge Activity
[2018-05-13] MEDS ORDERED: SODIUM CHLORIDE 1,000 ML IV STA (20:48)
[2018-05-13] MEDS ORDERED: FAMOTIDINE 20 MG/50 ML IVPB 20 MG/50 ML MG IVPB ONE ×2 (20:48→20:56)
[2018-05-13 20:56] VITALS: BMI 24.3
--- NOTE | 2018-05-13 21:04 | PDOC ---
Attending Attestation - HPI HPI: 05/13/18 21:31 The patient is 52 year male with past medical history of Hep. C, varicose vein , anxiety, GERD, depression HTN, and alcohol abuse presents to the emergency department from [facility] via EMS with chest pain. The patient presents with chest pain, which presented earlier today. The patient reports he fell out of a window, which is the reason why the patient has a neck collar on. The patient is recently discharged from detox to rehab recently. Allergies: NKDA Social history: Cocaine, Heroin, Marijuana, Opiates. Smoker. PCP: None reported. - Medical Decision Making 05/13/18 21:31 Documentation prepared by Codie Carmona, acting as manager medical writing for Mauricio Oliver MD. <Codie Carmona - Last Filed: 05/13/18 21:31> - Resident Resident Name: Jewel Crandall - ED Attending Attestation I have performed the following: I have examined & evaluated the patient, The case was reviewed & discussed with the resident, I agree w/resident's findings & plan, Exceptions are as noted - Physicial Exam PE: 05/13/18 23:06 Physical Exam General Appearance: Yes: Appropriately Dressed. No: Apparent Distress, Intoxicated HEENT: positive: EOMI, TRE, Normal ENT Inspection, Normal Voice, TMs Normal, Pharynx Normal. negative: Pale Conjunctivae, Photophobia, Scleral Icterus (R), Scleral Icterus (L) Neck: positive: Trachea midline, Normal Thyroid, Supple. negative: Tender, Rigid, Carotid bruit, Stridor, Lymphadenopathy (R), Lymphadenopathy (L), Thyromegaly Respiratory/Chest: positive: Lungs Clear, Normal Breath Sounds. negative: Chest Tender, Respiratory Distress, Accessory Muscle Use, Labored Respiration, RES, Crackles, Rales, Rhonchi, Stridor, Wheezing, Dullness Cardiovascular: positive: Regular Rhythm, Regular Rate, S1, S2. negative: Edema , JVD, Murmur, Bradycardia, Tachycardia Vascular Pulses: Dorsalis-Pedis (R): 2+, Doralis-Pedis (L): 2+ Gastrointestinal/Abdominal: positive: Normal Bowel Sounds, Flat, Soft. negative : Tender, Organomegaly, Pulsatile Mass, Increased Bowel Sounds, Decreased BS, Distended, Guarding, Rebound, Hernia, Hepatomegaly, Spleenomegaly Lymphatic: negative: Adenopathy, Tenderness Musculoskeletal: positive: Normal Inspection. negative: CVA Tenderness, Decreased Range of Motion Extremity: positive: Normal Capillary Refill, Normal Inspection, Normal Range of Motion, Pelvis Stable. negative: Tender, Pedal Edema, Swelling, Erythema Integumentary: positive: Normal Color, Dry, Warm. 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 negative: EOM Palsy, Facial Droop, Sensory Deficit - Medical Decision Making 05/13/18 23:05 Pt to go back to rehab. Ulissa at rehab informed <Mauricio Oliver - Last Filed: 05/13/18 23:07>
[2018-05-13 22:23] LABS: BASO % 0.7 % (0-2.0); EOS % 3.5 % (0-4.5); HEMATOCRIT 35.7 % (35.4-49); HEMOGLOBIN 11.9 GM/dL (11.7-16.9); LYMPH % 31.2 % (8-40); MCH 31.2 pg (25.7-33.7); MCHC 33.4 g/dl (32.0-35.9); MEAN CELL VOLUME 93.6 fl (80-96); MEAN PLT VOLUME 7.9 fl (7.5-11.1); MONO % 18.2 % (3.8-10.2); NEUT % 46.4 % (42.8-82.8); PLATELET COUNT 289 K/MM3 (134-434); RBC 3.82 M/mm3 (4.00-5.60); RDW 15.1 % (11.9-15.9); WHITE BLOOD COUNT 6.5 K/mm3 (4.0-10.0)
[2018-05-13 22:45] LABS: ALBUMIN 2.9 g/dl (3.4-5.0); ANION GAP 7 (8-16); BLOOD UREA NITROGEN 10 mg/dL (7-18); CALCIUM 8.9 mg/dL (8.5-10.1); CHLORIDE 103 mmol/L (98-107); CO2 32 mmol/L (21-32); CREATININE 0.6 mg/dL (0.7-1.3); GLUCOSE,RANDOM 88 mg/dL (74-106); LIPASE 97 U/L (73-393); POTASSIUM 4.4 mmol/L (3.5-5.1); SGOT/AST 73 U/L (15-37); SGPT/ALT 81 U/L (12-78); SODIUM 142 mmol/L (136-145)
[2018-05-13 22:49] LABS: ALK PHOS 169 U/L (45-117); BILIRUBIN,TOTAL 0.2 mg/dL (0.2-1.0); TOT PROT 7.3 g/dl (6.4-8.2)
[2018-05-13 23:29] VITALS: BP 130/78; PULSE 79; TEMP 97.9
--- NOTE | 2018-05-14 17:01 | EKG ---
Test Reason : Blood Pressure : / mmHG Vent. Rate : 085 BPM Atrial Rate : 085 BPM P-R Int : 190 ms QRS Dur : 082 ms QT Int : 396 ms P-R-T Axes : 067 048 039 degrees QTc Int : 471 ms NORMAL SINUS RHYTHM NORMAL ECG Confirmed by MD MIGUEL, RC ([id number]) on 05/14/2018 5:01:27 PM Referred By: Confirmed By:RC RIVERA MD
== END 2018-05-13 23:33 | disposition home or self-care (01) ==
LOC: JER 20:14
PROC: 3E033GC Introduction of Other Therapeutic Substance into Peripheral Vein, Percutaneous Approach (ICD-10-PCS; principal; 2018-05-13)
PROC: 3E0337Z Introduction of Electrolytic and Water Balance Substance into Peripheral Vein, Percutaneous Approach (ICD-10-PCS; 2018-05-13)
DX: R07.9 Chest pain, unspecified (principal); I10 Essential (primary) hypertension; B19.20 Unspecified viral hepatitis C without hepatic coma; F14.10 Cocaine abuse, uncomplicated; F10.10 Alcohol abuse, uncomplicated
CPT/HCPCS: 36415; 71045-TC-FY; 80053; 82550; 83690; 84484; 85025; 93005; 93010; 96361; 96365; 99282-25; J7030

== ENCOUNTER 2018-10-22 10:08 | Emergency (ER) | payer OTHER ==
[2018-10-22] MEDS ORDERED: ACETAMINOPHEN 1000 MG/100 ML VIAL (NON FORMULARY) IVPB ONE (10:59)
--- NOTE | 2018-10-22 11:21 | PDOC ---
History of Present Illness - General Chief Complaint: Pain Stated Complaint: PAIN Time Seen by Provider: 10/22/18 10:16 History Source: Patient Exam Limitations: Clinical Condition (Pt. is a poor historian 2/2 substance use) - History of Present Illness Initial Comments: 10/22/18 11:00 Pt. is a 53 y.o. M w/ significant PMHx. of polysubstance abuse (Marijuana, cocaine, heroin, nicotine, PCP and EtOH), Hepatitis C, HTN and varicose veins presents s/p fall for head an neck pain. Pt. states that he has been having dizziness, light headedness and difficulty with his balance for about 2 months now. Pt. states that he fell today, yesterday, the day before and numerous times over the last 2 months. Pt. states that he thinks after the last fall that he lost consciousness. He then stated that "the lady at the clinic called the EMS after he fell again." Pt. states that he hit the right posterior portion of his head after standing up feeling dizzy and falling backwards. Pt. states that when he regained consciousness he stood up and fell dizzy again. Pt. endorses head ache, eyes feeling "droopy", and shortness of breath. Pt. states that he last smoked PCP 1 week ago and a "joint" recently. Pt. denies any nausea, vomiting, diarrhea, abdominal pain, chest pain, palpitations, fever or chills. Timing/Duration: getting worse Severity: moderate Modifying Factors: improves with: immobilization, rest Associated Symptoms: reports: headaches, shortness of breath, syncope, weakness. denies: chest pain, cough, diaphoresis, fever/chills, loss of appetite, nausea/vomiting, seizure Aspirin Received prior to arrival: Yes: no aspirin today Past History - Past Medical History Allergies/Adverse Reactions: Allergies Allergy/AdvReac Type Severity Reaction Status Date / Time No Known Allergies Allergy Verified 05/13/18 20:34 Home Medications: Ambulatory Orders Zolpidem Tartrate [Ambien] 10 mg PO HS 01/25/18 Aspirin [ASA -] 325 mg PO DAILY 05/09/18 Paroxetine HCl [Paxil -] 10 mg PO HS 05/09/18 Quetiapine Fumarate [Seroquel] 50 mg PO HS 05/09/18 Albuterol Sulfate Inhaler - [Ventolin HFA Inhaler -] 2 inh PO Q4H PRN #1 inhaler 05/24/18 Anemia: No Asthma: Yes Cancer: No Cardiac Disorders: No CVA: No COPD: Yes CHF: No Dementia: No Diabetes: No GI Disorders: No Disorders: No HTN: Yes Hypercholesterolemia: No Kidney Stones: No Liver Disease: Yes (Hep C, Cleared without medication.) Psychiatric Problems: Yes Seizures: No Thyroid Disease: No - Surgical History Abdominal Surgery: No Appendectomy: No Cardiac Surgery: No Cholecystectomy: No Lung Surgery: No Neurologic Surgery: No Orthopedic Surgery: No - Reproductive History Testicular Surgery: No - Immunization History Immunization Up to Date: Yes - Suicide/Smoking/Psychosocial Hx Smoking History: Current every day smoker Have you smoked in the past 12 months: Yes Number of Cigarettes Smoked Daily: 40 Cigars Per Day: 0 'Breaking Loose' booklet given: 05/09/18 (GIVEN TO PATIENT.) Hx Alcohol Use: Yes Drug/Substance Use Hx: Yes (Began pcp at 18, consumes $20/day. Last smoked on ) Substance Use Type: Alcohol (Started drinkink alcohol at age 15, comsumes 1.5 pint of rum & 2x 6pk of beer daily. Last drank on 05/08/18), Cocaine (Started smoking crack cocaine at age 12, consumes $50 worth daily. Last smoked on ), Heroin, Marijuana (Last smoked a joint about a week ago in addition to PCP) Hx Substance Use Treatment: Yes Lives with/in: lives alone Review of Systems - Review of Systems Able to Perform ROS?: Yes Is the patient limited Brazilian proficient: No Constitutional: Yes: Weakness. No: Chills, Fever HEENTM: No: Eye Pain, Recent change in vision, Double Vision, Difficulty Swallowing Respiratory: Yes: Orthopnea, Shortness of Breath. No: Cough, Wheezing Cardiac (ROS): Yes: Edema, Lightheadedness. No: Chest Pain, Palpitations, Chest Tightness ABD/GI: Yes: Blood Streaked Bowels. No: Abd. Pain w/ defecation, Constipated, Diarrhea, Difficulty Swallowing, Nausea, Vomiting, Indigestion : No: Burning, Dysuria, Discharge, Frequency, Flank Pain, Hematuria, Incontinence, Pain, Urgency Musculoskeletal: Yes: Neck Pain. No: Back Pain, Joint Pain, Joint Swelling, Muscle Pain, Muscle Weakness, Joint Stiffness Integumentary: No: Symptoms Reported Neurological: Yes: Headache, Weakness, Unsteady Gait, Dizziness. No: Numbness, Paresthesia, Tingling Psychiatric: Yes: Anxiety, Depression Endocrine: No: Symptoms Reported Hematologic/Lymphatic: No: Symptoms Reported *Physical Exam - Physical Exam General Appearance: Yes: Nourished, Apparent Distress, Disheveled, Mild Distress , Obese. No: Appropriately Dressed HEENT: positive: TRE, Normal Voice, Symmetrical, Pharynx Normal, Sinus Tenderness Neck: positive: Trachea midline, Supple, Tender lateral, Tender midline Respiratory/Chest: positive: Lungs Clear, Decreased Breath Sounds. negative: Chest Tender, Accessory Muscle Use, Crackles, Rales, Rhonchi, Wheezing Cardiovascular: positive: Regular Rhythm, Regular Rate, S1, S2, Edema. negative : JVD, Murmur Vascular Pulses: Dorsalis-Pedis (R): 2+, Doralis-Pedis (L): 2+ Gastrointestinal/Abdominal: positive: Normal Bowel Sounds, Soft. negative: Guarding, Rebound, Tenderness Rectal Exam: positive: deferred Musculoskeletal: positive: Normal Inspection. negative: CVA Tenderness Extremity: positive: Normal Capillary Refill, Tender, Pelvis Stable, Pedal Edema , Swelling. negative: Normal Inspection, Coldness, Calf Tenderness, Erythema Integumentary: positive: Swelling (of lower extremity ) Neurologic: positive: Fully Oriented, Normal Mood/Affect, Normal Response, Respond to painful stimul, Responsive ED Treatment Course - RADIOLOGY Radiology Studies Ordered: Category Date Time Status CERVICAL SPINE CT W/O CONTR [CT] Stat CT Scan 10/22/18 10:[address] WITHOUT CONTRAST [CT] Stat CT Scan 10/22/18 10:57 Ordered CXRPORT [CHEST X-RAY PORTABLE*] [RAD] Stat Radiology 10/22/18 10:59 Ordered *DC/Admit/Observation/Transfer Diagnosis at time of Disposition: Pain Headache Qualifiers: Headache type: unspecified Headache chronicity pattern: acute headache Intractability: not intractable Qualified Code(s): R51 - Headache - Discharge Dispostion Disposition: HOME Condition at time of disposition: Stable Decision to Admit order: No - Referrals Referrals: Macho Smiley MD [Staff Physician] - 1 week - Patient Instructions Printed Discharge Instructions: DI for Headache, DI for Drug Abuse and Drug Addiction Additional Instructions: You came in for headache We imaged your head and did not find any new injuries. We have provided you with a copy of the report. Please follow up with your Primary Care Physician within 1 week. If you do not have a Primary Care Physician we have provided one for you. Please return to the ED if you are having worsening pain, sudden change of vision, worsening nausea/vomiting, chest pain, shortness of breath or any concerning symptoms. - Post Discharge Activity
[2018-10-22] MEDS ORDERED: SODIUM CHLORIDE 0.9% 500 ML INFUS.BAG IV ONE (11:26)
[2018-10-22 11:37] LABS: URINE APPEARANCE CLEAR; URINE BILIRUBIN NEGATIVE (<2.0 mg/dL); URINE COLOR STRAW; URINE GLUCOSE (UA) NEGATIVE (NEGATIVE); URINE KETONE NEGATIVE (NEGATIVE); URINE LEUK ESTERASE NEGATIVE (NEGATIVE); URINE NITRITE NEGATIVE (NEGATIVE); URINE PROTEIN NEGATIVE (NEGATIVE); URINE UROBILINOGEN NEGATIVE mg/dL (0.2-1.0)
--- NOTE | 2018-10-22 11:39 | PDOC ---
Attending Attestation - Resident Resident Name: SergioTiago - ED Attending Attestation I have performed the following: I have examined & evaluated the patient, The case was reviewed & discussed with the resident, I agree w/resident's findings & plan - [facility] HPI: 10/22/18 12:28 The patient is a 53 year old male with a significant past medical history of ETOH dependence, polysubstance abuse (PCP, cocaine, opioids, nicotine), asthma, schizophrenia, GERD, Hepatitis C, chronic varicose veins who presents to the emergency department with complaint of head and neck pain s/p fall at home today. The patient states that he fell today, yesterday, the day before and numerous times over the last 2 months secondary to unsteady gait, leg pains, dizziness, and lightheadedness which he has been experiencing intermittently. He can not recall LOC or sz activity today. Complaining of his varicose veins exacerbation. He denies chest pain, palpitations, shortness of breath. He denies fevers, chills, diarrhea, nausea, vomiting. He denies urinary symptoms. - Physicial Exam PE: 10/22/18 11:39 NAD, PERRL, EOMI, MMM, nl conjunctiva, anicteric; neck supple, in C collar with midline C spine tenderness. +occipital tenderness lungs clear, RRR, abdomen soft nontender. ROJAS x4, no focal neuro deficits. 1+peripheral edema bilaterally with some pretibial tenderness. normal color for ethnicity, WWP. no calf tenderness. - Medical Decision Making 10/22/18 12:46 I, Zayda Duval MD, attest that this document has been prepared under my direction and personally reviewed by me in its entirety. I further attest, that it accurately reflects all work, treatment, procedures and medical decision -making performed by me. See HPI for details Vital signs reviewed, wnl. Prior notes reviewed, including admissions, discharges and consultations. laboratory results and imaging reviewed, basic labs and lytes wnl, CXR_no acute pathology - no effusion/normal cardiac silhouette, no effusion/ infiltrate/ptx. EKG normal sinus rhythm, no interval abnormalities, narrow QRS, ST and T wave segments and morphology normal. ED course: given PO tyl/motrin for pain control. Doubt DVT as no calf tenderness , chronic leg edema, but no s/s to suggest VTE. CT head and C spine - neg for acute head bleed or AMERICAN SIGN LANGUAGE INTERPRETER pathology - likely old sequelae encephalopathy vs microvascular changes; old nasal bone fx, chronic. Sinusitis noted, but no acute sx. CT C spine with degenerative changes, but no acute fx/subluxation. old sequelae of T1 endplate/fx, no tenderness there. Dispo: Pt informed of my clinical impression, treatment recommendations and disposition plan. All questions answered to patient's satisfaction and expressed understanding and comfort with this. Reasons for returning to the ED sooner discussed with the patient otherwise, follow up with primary care physician. At the time of discharge, the patient is alert, clinically improved, tolerating po and verbalizes understanding of instructions. Patient does not suffer from an acute life-threatening medical condition at this time she is safe for outpatient follow-up. 10/22/18 12:50
[2018-10-22 11:51] VITALS: TEMP 98.4
[2018-10-22 12:13] VITALS: BP 133/77; PULSE 58; BMI 23.1
[2018-10-22] MEDS ORDERED: IBUPROFEN 600 MG TABLET (FP) PO ONE ×2 (12:14→12:16)
[2018-10-22] MEDS ORDERED: ACETAMINOPHEN 325 MG TABLET (FP) PO ONE (12:14)
[2018-10-22] MEDS ORDERED: ACETAMINOPHEN 325 MG TABLET (FP) ONE (12:16)
[2018-10-22 12:53] LABS: BASO % 0.5 % (0-2.0); EOS % 3.9 % (0-4.5); HEMATOCRIT 37.6 % (35.4-49); LYMPH % 42.8 % (8-40); MCH 29.1 pg (25.7-33.7); MCHC 31.9 g/dl (32.0-35.9); MEAN CELL VOLUME 91.3 fl (80-96); MEAN PLT VOLUME 7.9 fl (7.5-11.1); MONO % 15.9 % (3.8-10.2); NEUT % 36.9 % (42.8-82.8); PLATELET COUNT 202 K/MM3 (134-434); RBC 4.12 M/mm3 (4.00-5.60); RDW 14.7 % (11.9-15.9); WHITE BLOOD COUNT 5.1 K/mm3 (4.0-10.0)
[2018-10-22 13:20] LABS: ALK PHOS 131 U/L (45-117); ANION GAP 3 MMOL/L (8-16); BILIRUBIN,TOTAL 0.4 mg/dL (0.2-1); BLOOD UREA NITROGEN 6 mg/dL (7-18); CALCIUM 8.5 mg/dL (8.5-10.1); CHLORIDE 102 mmol/L (98-107); CO2 32 mmol/L (21-32); CREATININE 0.6 mg/dL (0.55-1.3); GLUCOSE,RANDOM 90 mg/dL (74-106); SGOT/AST 32 U/L (15-37); SGPT/ALT 31 U/L (13-61); SODIUM 138 mmol/L (136-145); TOT PROT 7.6 g/dl (6.4-8.2)
--- NOTE | 2018-10-22 14:31 | EKG ---
Test Reason : Blood Pressure : / mmHG Vent. Rate : 063 BPM Atrial Rate : 063 BPM P-R Int : 174 ms QRS Dur : 082 ms QT Int : 452 ms P-R-T Axes : 055 055 053 degrees QTc Int : 462 ms NORMAL SINUS RHYTHM WITH SINUS ARRHYTHMIA NORMAL ECG WHEN COMPARED WITH ECG OF 13-MAY-2018 21:16, NO SIGNIFICANT CHANGE WAS FOUND Confirmed by Trung Toledo MD ([id number]) on 10/22/2018 2:31:03 PM Referred By: Confirmed By:Trung Toledo MD
== END 2018-10-22 13:50 | disposition home or self-care (01) ==
LOC: JER 10:08
DX: R51 Headache (principal); M54.2 Cervicalgia; R42 Dizziness and giddiness; W18.39XA Other fall on same level, initial encounter; Z91.81 History of falling; Y93.89 Activity, other specified; Y92.018 Other place in single-family (private) house as the place of occurrence of the external cause; Y99.8 Other external cause status; F19.11 Other psychoactive substance abuse, in remission; F10.10 Alcohol abuse, uncomplicated; Z87.898 Personal history of other specified conditions; J45.909 Unspecified asthma, uncomplicated; F20.9 Schizophrenia, unspecified; K21.9 Gastro-esophageal reflux disease without esophagitis; Z86.19 Personal history of other infectious and parasitic diseases
CPT/HCPCS: 36415; 70450-TC; 71045-TC-FY; 72125-TC; 80053; 81003; 85025; 93005; 93010; 99283-25

== ENCOUNTER 2018-11-06 11:43 | Inpatient (IN) | payer OTHER ==
[2018-11-06 13:31] VITALS: BMI 27.9
--- NOTE | 2018-11-06 15:45 | HP ---
CIWA Score - Admission Criteria [facility] Guidelines: Admission for Medically Managed Detox: Requires at least one of the followin. CIWA greater than 12 2. Seizures within the past 24 hours 3. Delirium tremens within the past 24 hours 4. Hallucinations within the past 24 hours 5. Acute intervention needed for co occurring medical disorder 6. Acute intervention needed for co occurring psychiatric disorder 7. Severe withdrawal that cannot be handled at a lower level of care (continued vomiting, continued diarrhea, abnormal vital signs) requiring intravenous medication and/or fluids 8. Admission ROS [facility] Chief Complaint: PATIENT PRESENTS FOR REHAB SERVICES FOR MARIJUANA, PCP, COCAINE HEROIN DEPENDENCE. Allergies/Adverse Reactions: Allergies Allergy/AdvReac Type Severity Reaction Status Date / Time No Known Allergies Allergy Verified 11/06/18 15:39 History of Present Illness: PATIENT IS KNOWN TO FACILITY AND PRESENTS FOR REHAB SERVICES FOR HEROIN, CRACK/ COCAINE, MARIJUANA AND PCP DEPENDENCE. PATIENT IS CURRENTLY ON MMTP AND DOSE IS PENDING RN VERIFICATION. PATIENT STARTING SNIFFING HEROIN, SMOKING COCAINE AND PCP AT AGE 23. PATIENT SNIFFS 2-3 BAGS OF HEROIN DAILY, SMOKES 2-3 VIALS OF CRACK AND PCP DAILY WITH LAST USE TODAY. PATIENT ALSO BUYS NON-PRESCRIBED KLONIPIN AND TAKES UP TO 4MG DAILY WHEN HE CAN AFFORD IT. LAST USE WAS LAST NIGHT. PATIENT INFORMED HE WILL NOT BE PRESCRIBED KLONIPIN DURING REHAB ADMISSION AND STATES HE WILL BE FINE WITHOUT IT HE DOES NOT TAKE IT EVERY DAY. PMH INCLUDES SCHIZOPHRENIA, HEP C ( CLEARED WITHOUT TREATMENT), GERD, TOBACCO USE AND ASTHMA. DENIES SI/HI AND SUICIDE ATTEMPTS. PATIENT ALSO DENIES HX OF SEIZURES, OVERDOSE, BLACKOUTS AND FALLS. Exam Limitations: No Limitations - Ebola screening Have you traveled outside of the country in the last 21 days: No Have you had contact with anyone from an Ebola affected area: No Have you been sick,other than usual withdrawal symptoms: No Do you have a fever: No - Review of Systems Constitutional: Changes in sleep EENT: reports: Recent change in vision (STATES HE NEEDS GLASSES FOR READING/ DISTANCE BUT DOES NOT HAVE ANY) Respiratory: reports: No Symptoms reported Cardiac: reports: No Symptoms Reported GI: reports: Constipated, Nausea, Poor Fluid Intake, Indigestion : reports: No Symptoms Reported Musculoskeletal: reports: Back Pain, Muscle Pain Integumentary: reports: No Symptoms Reported Neuro: reports: Headache, Unsteady Gait (AMBULATES WITH CANE) Endocrine: reports: No Symptoms Reported Hematology: reports: No Symptoms Reported Psychiatric: reports: Orientated x3, Depressed (H/O SCHIZOPHRENIA), other Patient History - Patient Medical History Hx Anemia: No Hx Asthma: Yes Hx Chronic Obstructive Pulmonary Disease (COPD): Yes Hx Cancer: No Hx Cardiac Disorders: No Hx Congestive Heart Failure: No Hx Hypertension: Yes Hx Hypercholesterolemia: No Hx Pacemaker: No HX Cerebrovascular Accident: No Hx Seizures: No Hx Dementia: No Hx Diabetes: No Hx Gastrointestinal Disorders: No Hx Liver Disease: Yes (Hep C, Cleared without medication.) Hx Genitourinary Disorders: No Hx Sexually Transmitted Disorders: No Hx Renal Disease (ESRD): No Hx Thyroid Disease: No Hx Human Immunodeficiency Virus (HIV): No (Negative History.) Hx Hepatitis C: Yes (Cleared Virus without medication.) Hx Depression: Yes Hx Suicide Attempt: No Hx Bipolar Disorder: No Hx Schizophrenia: Yes - Patient Surgical History Past Surgical History: Yes Hx Neurologic Surgery: No Hx Cataract Extraction: No Hx Cardiac Surgery: No Hx Lung Surgery: No Hx Breast Surgery: No Hx Breast Biopsy: No Hx Abdominal Surgery: No Hx Appendectomy: No Hx Cholecystectomy: No Hx Genitourinary Surgery: No Hx Orthopedic Surgery: No Other Surgical History: DENIES. Anesthesia Reaction: No - PPD History Previous Implant?: No Documented Results: Positive w/o proof PPD to be Administered?: No - Smoking Cessation Smoking history: Current every day smoker Have you smoked in the past 12 months: Yes Aproximately how many cigarettes per day: 40 Cigars Per Day: 0 Hx Chewing Tobacco Use: No Initiated information on smoking cessation: Yes 'Breaking Loose' booklet given: 11/06/18 - Substance & Tx. History Hx Alcohol Use: No Hx Substance Use: Yes Substance Use Type: Cocaine, Marijuana, Opiates, Prescribed, Tranquilizers Hx Substance Use Treatment: Yes - Substances Abused Heroin Route: Inhalation Frequency: Daily Amount used: 2-3 bags Age of first use: 20 Date of Last Use: 11/05/18 PCP Route: Smoking Frequency: Daily Amount used: 1-2 bags Age of first use: 23 Date of Last Use: 11/02/18 Cocaine Route: Smoking Frequency: Daily Amount used: 2-3 vials Age of first use: 23 Date of Last Use: 11/05/18 Benzodiazepine (Klonopin) Route: Oral Frequency: Daily Amount used: 4mg Age of first use: 23 Date of Last Use: 11/05/18 Family Disease History - Family Disease History Family Disease History: Diabetes: Mother (Alcoholic), Heart Disease: Mother, Other: Mother, Brother (Psychiatric Disorder.) Admission Physical Exam [facility] - Vital Signs Vital Signs: Vital Signs - 24 hr 11/06/18 13:29 Temperature 97.1 F L Pulse Rate 76 Respiratory 20 Rate Blood Pressure 101/66 - Physical General Appearance: Yes: Nourished, Appropriately Dressed, Disheveled HEENTM: Yes: EOMI, Hearing grossly Normal, Normal ENT Inspection, Normocephalic , Normal Voice, TRE, Pharynx Normal Respiratory: Yes: Chest Non-Tender, Lungs Clear, Normal Breath Sounds, No Respiratory Distress, No Accessory Muscle Use Neck: Yes: No masses,lesions,Nodules, Supple, Trachea in good position Breast: Yes: Breast Exam Deferred Cardiology: Yes: Regular Rhythm, Regular Rate, S1, S2 Abdominal: Yes: Normal Bowel Sounds, Soft, Other (MILD RUQ TENDERNESS, NEG REBUOND TENDERNESS, BS+) Genitourinary: Yes: Within Normal Limits Back: Yes: Muscle Spasm Musculoskeletal: Yes: full range of Motion, Back pain, Other (AMBULATES WITH CANE) Extremities: Yes: Normal Range of Motion, Non-Tender, Swelling Neurological: Yes: car distributor II-XII NML intact, Fully Oriented, Alert, Normal Response , Depressed Affect Integumentary: Yes: Normal Color, Dry, Warm, Other (+ OLD CAT SCRATCHES ON HANDS ) Lymphatic: Yes: Within Normal Limits - Diagnostic (1) Cocaine dependence Current Visit: No Status: Chronic Qualifiers: Substance use status: uncomplicated Qualified Code(s): F14.20 - Cocaine dependence, uncomplicated (2) Low back pain with left-sided sciatica Current Visit: No Status: Chronic Qualifiers: Chronicity: acute Back pain laterality: left Qualified Code(s): M54.42 - Lumbago with sciatica, left side (3) PCP (phencyclidine) abuse Current Visit: No Status: Chronic (4) Asthma Current Visit: No Status: Chronic Qualifiers: Asthma severity: mild Asthma persistence: unspecified Asthma complication type: uncomplicated Qualified Code(s): J45.909 - Unspecified asthma, uncomplicated (5) Cannabis dependence Current Visit: Yes Status: Chronic (6) GERD (gastroesophageal reflux disease) Current Visit: Yes Status: Chronic Qualifiers: Esophagitis presence: esophagitis presence not specified Qualified Code(s) : K21.9 - Gastro-esophageal reflux disease without esophagitis (7) Methadone maintenance therapy patient Current Visit: Yes Status: Chronic (8) Nicotine dependence Current Visit: Yes Status: Chronic Qualifiers: Nicotine product type: cigarettes Substance use status: in withdrawal Qualified Code(s): F17.213 - Nicotine dependence, cigarettes, with withdrawal (9) Schizophrenia Current Visit: Yes Status: Chronic Qualifiers: Schizophrenia type: unspecified Qualified Code(s): F20.9 - Schizophrenia, unspecified Comment: history. nonadherent due to not having medications. Pt. agreeable to restarting medications. (10) Swelling of both lower extremities Current Visit: Yes Status: Chronic (11) Hep C w/o coma, chronic Current Visit: Yes Status: Resolved Comment: Patient Reports Spontaneously Resolved Without Treatment. Cleared for Admission [facility] - Detox or Rehab Claeared for Rehab Admission: Yes [facility] Breath Alcohol Content Breath Alcohol Content: 0 Urine Drug Screen - Results Drug Screen Negative: No Urine Drug Screen Results: THC-Marijuana, JESSICA-Cocaine, OPI-Opiates, BZO- Benzodiazepines, MTD-Methadone Inpatient Rehab Admission - Initial Determination Are CD services needed?: Yes Free of communicable disease: Yes Not in need of hospitalization: Yes - Rehab Admission Criteria Previous failed treatment: Yes Poor recovery environment: Yes Comorbidities: Yes Lacks judgement: No Patient is meeting Inpatient Rehab admission criteria:: Yes
[2018-11-06] MEDS ORDERED: LOPERAMIDE HCL 2 MG CAPSULE PO PRN (16:07)
[2018-11-06] MEDS ORDERED: hydrOXYzine PAMOATE 50 MG CAPSULE (FP) PO PRN (16:07)
[2018-11-06] MEDS ORDERED: guaiFENesin/D-METHORPHAN HB 10 ML UNIT-DOSE CUPS PO PRN (16:07)
[2018-11-06] MEDS ORDERED: P-EPHED 60MG/TRIPROLIDI 2.5MG TABLET PO PRN (16:07)
[2018-11-06] MEDS ORDERED: IBUPROFEN 400 MG TABLET (FP) PO PRN (16:07)
[2018-11-06] MEDS ORDERED: MENTHOL/PHENOL 1 EACH UD MM PRN (16:07)
[2018-11-06] MEDS ORDERED: MAGNESIUM CITRATE 300 ML BOTTLE PO PRN (16:07)
[2018-11-06] MEDS ORDERED: MAGNESIUM HYDROX 2400MG/30ML ORAL SUSPENSION 30 ML CUP PO PRN (16:07)
[2018-11-06] MEDS ORDERED: NICOTINE POLACRILEX 2 MG GUM BC PRN (16:07)
[2018-11-06] MEDS ORDERED: ACETAMINOPHEN 325 MG TABLET (FP) PO PRN (16:07)
[2018-11-06] MEDS ORDERED: ALBUTEROL SO4 8 GM HFA INHALER IH PRN (16:07)
[2018-11-06] MEDS ORDERED: MELATONIN 5 MG TABLETS PO PRN (22:00)
[2018-11-06] MEDS: THIAMINE HCL 100 MG TABLET (FP) PO SCH (22:07)
[2018-11-06 23:54] LABS: URINE APPEARANCE CLEAR; URINE BILIRUBIN NEGATIVE (<2.0 mg/dL); URINE COLOR AMBER; URINE GLUCOSE (UA) NEGATIVE (NEGATIVE); URINE KETONE NEGATIVE (NEGATIVE); URINE LEUK ESTERASE NEGATIVE (NEGATIVE); URINE NITRITE NEGATIVE (NEGATIVE); URINE PROTEIN NEGATIVE (NEGATIVE); URINE UROBILINOGEN 4.0 E.U/dl mg/dL (0.2-1.0)
[2018-11-07] MEDS ORDERED: METHADONE HCL 40 MG DISPERSABLE TABLET PO ONE (10:00)
[2018-11-07] MEDS: NICOTINE 21 MG/24 HOURS TOPICAL PATCH TD SCH (10:44)
[2018-11-07] MEDS: PRENATAL VITAMINS W/ FOLIC ACID TABLET (FP) PO SCH (10:44)
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
[2018-11-07] MEDS ORDERED: FLU VACCINE QUAD 60 MCG/0.5 ML (MDV 18-19) IM ONE (12:00)
[2018-11-07] MEDS: PARoxetine HCL 10 MG TABLET (FP) PO SCH (13:00)
[2018-11-07 14:32] LABS: HEMATOCRIT 39.8 % (35.4-49); HEMOGLOBIN 13.1 GM/dL (11.7-16.9); MCH 30.3 pg (25.7-33.7); MCHC 32.8 g/dl (32.0-35.9); MEAN CELL VOLUME 92.4 fl (80-96); MEAN PLT VOLUME 8.7 fl (7.5-11.1); PLATELET COUNT 240 K/MM3 (134-434); RBC 4.31 M/mm3 (4.00-5.60); RDW 15.2 % (11.9-15.9); WHITE BLOOD COUNT 6.2 K/mm3 (4.0-10.0)
[2018-11-07 14:53] LABS: ALK PHOS 127 U/L (45-117); ANION GAP 6 MMOL/L (8-16); BILIRUBIN,TOTAL 0.4 mg/dL (0.2-1); BLOOD UREA NITROGEN 7 mg/dL (7-18); CALCIUM 8.5 mg/dL (8.5-10.1); CHLORIDE 104 mmol/L (98-107); CO2 28 mmol/L (21-32); CREATININE 0.8 mg/dL (0.55-1.3); GLUCOSE,RANDOM 99 mg/dL (74-106); POTASSIUM 4.2 mmol/L (3.5-5.1); SGOT/AST 37 U/L (15-37); SGPT/ALT 29 U/L (13-61); SODIUM 137 mmol/L (136-145); TOT PROT 7.7 g/dl (6.4-8.2)
[2018-11-07] MEDS: QUEtiapine FUMARATE 100 MG TABLET (FP) PO SCH (21:33)
[2018-11-07] MEDS: THIAMINE HCL 100 MG TABLET (FP) PO SCH (21:33)
[2018-11-08] MEDS: METHADONE HCL 40 MG DISPERSABLE TABLET PO SCH (06:38)
[2018-11-08] MEDS: PARoxetine HCL 10 MG TABLET (FP) PO SCH (10:21)
[2018-11-08] MEDS: PRENATAL VITAMINS W/ FOLIC ACID TABLET (FP) PO SCH (10:21)
[2018-11-08] MEDS: NICOTINE 21 MG/24 HOURS TOPICAL PATCH TD SCH (10:21)
[2018-11-08] MEDS ORDERED: DOCUSATE SODIUM 100 MG CAPSULE (FP) PO PRN (15:42)
[2018-11-08] MEDS: THIAMINE HCL 100 MG TABLET (FP) PO SCH (21:48)
[2018-11-08] MEDS: QUEtiapine FUMARATE 100 MG TABLET (FP) PO SCH (21:48)
[2018-11-09] MEDS: METHADONE HCL 40 MG DISPERSABLE TABLET PO SCH (06:42)
[2018-11-09] MEDS: PRENATAL VITAMINS W/ FOLIC ACID TABLET (FP) PO SCH (09:52)
[2018-11-09] MEDS: PARoxetine HCL 10 MG TABLET (FP) PO SCH (09:53)
[2018-11-09] MEDS: NICOTINE 21 MG/24 HOURS TOPICAL PATCH TD SCH ×2 (11:00→14:26)
[2018-11-09] MEDS: QUEtiapine FUMARATE 100 MG TABLET (FP) PO SCH (21:30)
[2018-11-09] MEDS: THIAMINE HCL 100 MG TABLET (FP) PO SCH (21:30)
[2018-11-10] MEDS: METHADONE HCL 40 MG DISPERSABLE TABLET PO SCH (06:56)
[2018-11-10] MEDS: NICOTINE 21 MG/24 HOURS TOPICAL PATCH TD SCH (10:15)
[2018-11-10] MEDS: PARoxetine HCL 10 MG TABLET (FP) PO SCH (10:15)
[2018-11-10] MEDS: PRENATAL VITAMINS W/ FOLIC ACID TABLET (FP) PO SCH (10:15)
[2018-11-10] MEDS: QUEtiapine FUMARATE 100 MG TABLET (FP) PO SCH (21:47)
[2018-11-10] MEDS: THIAMINE HCL 100 MG TABLET (FP) PO SCH (21:48)
[2018-11-11] MEDS: METHADONE HCL 40 MG DISPERSABLE TABLET PO SCH (06:36)
[2018-11-11] MEDS: NICOTINE 21 MG/24 HOURS TOPICAL PATCH TD SCH (10:47)
[2018-11-11] MEDS: PRENATAL VITAMINS W/ FOLIC ACID TABLET (FP) PO SCH (10:47)
[2018-11-11] MEDS: PARoxetine HCL 10 MG TABLET (FP) PO SCH (10:47)
[2018-11-11] MEDS: QUEtiapine FUMARATE 100 MG TABLET (FP) PO SCH (21:34)
[2018-11-11] MEDS: THIAMINE HCL 100 MG TABLET (FP) PO SCH (21:34)
[2018-11-12] MEDS: METHADONE HCL 40 MG DISPERSABLE TABLET PO SCH (07:04)
[2018-11-12] MEDS: PARoxetine HCL 10 MG TABLET (FP) PO SCH (11:03)
[2018-11-12] MEDS: PRENATAL VITAMINS W/ FOLIC ACID TABLET (FP) PO SCH (11:03)
[2018-11-12] MEDS: NICOTINE 21 MG/24 HOURS TOPICAL PATCH TD SCH (11:03)
[2018-11-12] MEDS: MAG HYDROX/AL HYDROX/SIMETH 30 ML UNIT-DOSE CUP PO PRN (14:25)
[2018-11-12] MEDS: QUEtiapine FUMARATE 100 MG TABLET (FP) PO SCH (21:21)
[2018-11-12] MEDS: THIAMINE HCL 100 MG TABLET (FP) PO SCH (21:21)
[2018-11-13] MEDS: METHADONE HCL 40 MG DISPERSABLE TABLET PO SCH (06:45)
[2018-11-13] MEDS: PARoxetine HCL 10 MG TABLET (FP) PO SCH (10:37)
[2018-11-13] MEDS: PRENATAL VITAMINS W/ FOLIC ACID TABLET (FP) PO SCH (10:37)
[2018-11-13] MEDS: NICOTINE 21 MG/24 HOURS TOPICAL PATCH TD SCH (10:38)
[2018-11-13] MEDS ORDERED: COLLOIDAL OATMEAL 1 BAR EACH TP PRN (11:02)
[2018-11-13] MEDS: QUEtiapine FUMARATE 100 MG TABLET (FP) PO SCH (21:34)
[2018-11-13] MEDS: THIAMINE HCL 100 MG TABLET (FP) PO SCH (21:34)
[2018-11-14] MEDS: METHADONE HCL 40 MG DISPERSABLE TABLET PO SCH (06:34)
[2018-11-14] MEDS: PARoxetine HCL 10 MG TABLET (FP) PO SCH (10:09)
[2018-11-14] MEDS: PRENATAL VITAMINS W/ FOLIC ACID TABLET (FP) PO SCH (10:09)
[2018-11-14] MEDS: NICOTINE 21 MG/24 HOURS TOPICAL PATCH TD SCH (10:10)
[2018-11-14] MEDS: THIAMINE HCL 100 MG TABLET (FP) PO SCH (21:27)
[2018-11-14] MEDS: QUEtiapine FUMARATE 100 MG TABLET (FP) PO SCH (21:28)
[2018-11-15] MEDS: METHADONE HCL 40 MG DISPERSABLE TABLET PO SCH (06:21)
[2018-11-15] MEDS: NICOTINE 21 MG/24 HOURS TOPICAL PATCH TD SCH (10:17)
[2018-11-15] MEDS: PRENATAL VITAMINS W/ FOLIC ACID TABLET (FP) PO SCH (10:17)
[2018-11-15] MEDS: PARoxetine HCL 10 MG TABLET (FP) PO SCH (10:17)
[2018-11-15] MEDS: QUEtiapine FUMARATE 100 MG TABLET (FP) PO SCH (21:35)
[2018-11-15] MEDS: THIAMINE HCL 100 MG TABLET (FP) PO SCH (21:35)
[2018-11-16] MEDS: METHADONE HCL 40 MG DISPERSABLE TABLET PO SCH (06:56)
[2018-11-16] MEDS: PRENATAL VITAMINS W/ FOLIC ACID TABLET (FP) PO SCH (10:16)
[2018-11-16] MEDS: PARoxetine HCL 10 MG TABLET (FP) PO SCH (10:16)
[2018-11-16] MEDS: NICOTINE 21 MG/24 HOURS TOPICAL PATCH TD SCH (10:16)
[2018-11-16] MEDS: MAG HYDROX/AL HYDROX/SIMETH 30 ML UNIT-DOSE CUP PO PRN (14:38)
[2018-11-16] MEDS: QUEtiapine FUMARATE 100 MG TABLET (FP) PO SCH (21:29)
[2018-11-16] MEDS: THIAMINE HCL 100 MG TABLET (FP) PO SCH (21:29)
[2018-11-17] MEDS: METHADONE HCL 40 MG DISPERSABLE TABLET PO SCH (06:52)
[2018-11-17] MEDS: PARoxetine HCL 10 MG TABLET (FP) PO SCH (09:54)
[2018-11-17] MEDS: PRENATAL VITAMINS W/ FOLIC ACID TABLET (FP) PO SCH (09:54)
[2018-11-17] MEDS: NICOTINE 21 MG/24 HOURS TOPICAL PATCH TD SCH (09:54)
[2018-11-17] MEDS: MAG HYDROX/AL HYDROX/SIMETH 30 ML UNIT-DOSE CUP PO PRN (19:34)
[2018-11-17] MEDS: QUEtiapine FUMARATE 100 MG TABLET (FP) PO SCH (21:47)
[2018-11-17] MEDS: THIAMINE HCL 100 MG TABLET (FP) PO SCH (21:47)
[2018-11-18] MEDS: METHADONE HCL 40 MG DISPERSABLE TABLET PO SCH (06:19)
[2018-11-18] MEDS: PRENATAL VITAMINS W/ FOLIC ACID TABLET (FP) PO SCH (10:10)
[2018-11-18] MEDS: PARoxetine HCL 10 MG TABLET (FP) PO SCH (10:10)
[2018-11-18] MEDS: NICOTINE 21 MG/24 HOURS TOPICAL PATCH TD SCH (10:10)
[2018-11-18] MEDS: THIAMINE HCL 100 MG TABLET (FP) PO SCH (21:30)
[2018-11-18] MEDS: QUEtiapine FUMARATE 100 MG TABLET (FP) PO SCH (21:30)
[2018-11-19] MEDS: METHADONE HCL 40 MG DISPERSABLE TABLET PO SCH (06:10)
[2018-11-19 06:53] VITALS: BP 111/74; PULSE 75; TEMP 98.2
[2018-11-19] MEDS: PRENATAL VITAMINS W/ FOLIC ACID TABLET (FP) PO SCH (09:39)
[2018-11-19] MEDS: PARoxetine HCL 10 MG TABLET (FP) PO SCH (09:39)
[2018-11-19] MEDS: NICOTINE 21 MG/24 HOURS TOPICAL PATCH TD SCH (09:39)
--- NOTE | 2018-11-19 15:43 | PN ---
[facility] Progress Note Note: REHAB DISCHARGE NOTE: PT COMPLETED REHAB AND DISCHARGED TODAY. PT WAS REFERRED TO [facility] CD AFTERCARE AND REPORTS HE HAS PCP WITH [facility] ON [address] [place] [address]. Vital Signs - 24 hr 11/19/18 11/19/18 11/19/18 00:30 03:30 06:52 Temperature 98.2 F Pulse Rate 75 Respiratory 18 18 18 Rate Blood Pressure 111/74 Laboratory Tests 11/06/18 11/07/18 11/07/18 22:36 11:40 11:40 WBC 6.2 RBC 4.31 Hgb 13.1 Hct 39.8 MCV 92.4 MCH 30.3 MCHC 32.8 RDW 15.2 Plt Count 240 MPV 8.7 D Sodium 137 Potassium 4.2 Chloride 104 Carbon Dioxide 28 Anion Gap 6 L BUN 7 Creatinine 0.8 Creat Clearance w eGFR > 60 Random Glucose 99 Calcium 8.5 Total Bilirubin 0.4 AST 37 ALT 29 Alkaline Phosphatase 127 H Total Protein 7.7 Albumin 3.0 L Urine Color Evelyn Urine Appearance Clear Urine pH 5.0 Ur Specific Childs 1.027 Urine Protein Negative Urine Glucose (UA) Negative Urine Ketones Negative Urine Blood Negative Urine Nitrite Negative Urine Bilirubin Negative Urine Urobilinogen 4.0 e.u/dl Ur Leukocyte Esterase Negative RPR Titer 11/07/18 11:40 WBC RBC Hgb Hct MCV MCH MCHC RDW Plt Count MPV Sodium Potassium Chloride Carbon Dioxide Anion Gap BUN Creatinine Creat Clearance w eGFR Random Glucose Calcium Total Bilirubin AST ALT Alkaline Phosphatase Total Protein Albumin Urine Color Urine Appearance Urine pH Ur Specific Childs Urine Protein Urine Glucose (UA) Urine Ketones Urine Blood Urine Nitrite Urine Bilirubin Urine Urobilinogen Ur Leukocyte Esterase RPR Titer Nonreactive NAD PLAN:FOLLOW UP AT [facility] FOR CD AFTERCARE TREATMENT/[id number]. [facility]
[2018-11-20] MEDS ORDERED: METHADONE HCL 40 MG DISPERSABLE TABLET PO SCH (06:00)
== END 2018-11-19 10:05 | disposition home or self-care (01) | DRG 772 ==
LOC: YASAS 11:43 → Y5N 16:52
PROVIDERS: ADMIT Psychiatry & Neurology Psychiatry; ATTEND Psychiatry & Neurology Psychiatry
PROC: HZ42ZZZ Group Counseling for Substance Abuse Treatment, Cognitive-Behavioral (ICD-10-PCS; principal; 2018-11-06)
DX: F10.20 Alcohol dependence, uncomplicated (principal); F11.20 Opioid dependence, uncomplicated; F14.20 Cocaine dependence, uncomplicated; F12.20 Cannabis dependence, uncomplicated; F16.10 Hallucinogen abuse, uncomplicated; F17.213 Nicotine dependence, cigarettes, with withdrawal; F20.9 Schizophrenia, unspecified; I10 Essential (primary) hypertension; K21.9 Gastro-esophageal reflux disease without esophagitis; M54.42 Lumbago with sciatica, left side; G89.29 Other chronic pain; J45.909 Unspecified asthma, uncomplicated; R22.42 Localized swelling, mass and lump, left lower limb
CPT/HCPCS: 36415; 80053; 81003; 85027; 86593; 90688; G0008

== ENCOUNTER 2018-12-04 13:21 | Emergency (ER) | payer OTHER ==
[2018-12-04 13:25] VITALS: TEMP 97.8; BMI 40.2
--- NOTE | 2018-12-04 13:52 | PDOC ---
History of Present Illness <Hiwot Casey - Last Filed: 12/04/18 15:08> - History of Present Illness Initial Comments: 12/04/18 13:49 The patient is a 53 year old male, with a significant PMH of polysubstance abuse (Marijuana, cocaine, heroin, nicotine, PCP and EtOH), Hepatitis C, HTN and varicose veins who presents to the emergency department for intoxication. The patient was BIB[facility] from [facility] where he was attending his group sessions. The patients counselor states the patient was in his USOH until he went outside smoked something. When he came back into the room, he appeared disoriented. Pt's director case management, Curtis Allen, is in ED and reports that he is familiar with the pt. Pt likely took PCP or cocaine, as his behavior is typical of when he uses these drugs. Patient denies any complaints. Denies any substance use today. Allergies: NKA Social history: Substance abuse (Marijuana, cocaine, heroin, nicotine, PCP and EtOH) PCP: <John Gaming - Last Filed: 12/04/18 15:14> - General Chief Complaint: Substance Abuse Stated Complaint: AMS Time Seen by Provider: 12/04/18 13:31 Past History <Hiwot Casey - Last Filed: 12/04/18 15:08> - Past Medical History Anemia: No Asthma: Yes Cancer: No Cardiac Disorders: No CVA: No COPD: Yes CHF: No Dementia: No Diabetes: No GI Disorders: No Disorders: No HTN: Yes Hypercholesterolemia: No Kidney Stones: No Liver Disease: Yes (Hep C, Cleared without medication.) Psychiatric Problems: Yes Seizures: No Thyroid Disease: No - Surgical History Abdominal Surgery: No Appendectomy: No Cardiac Surgery: No Cholecystectomy: No Lung Surgery: No Neurologic Surgery: No Orthopedic Surgery: No - Reproductive History Testicular Surgery: No - Immunization History Immunization Up to Date: Yes - Suicide/Smoking/Psychosocial Hx Smoking History: Current every day smoker Have you smoked in the past 12 months: Yes Number of Cigarettes Smoked Daily: 40 Cigars Per Day: 0 Information on smoking cessation initiated: No 'Breaking Loose' booklet given: 05/09/18 Hx Alcohol Use: Yes Drug/Substance Use Hx: Yes (Began pcp at 18, consumes $20/day. Last smoked on ) Substance Use Type: Alcohol, Cocaine, Heroin, Marijuana Hx Substance Use Treatment: Yes <John Gaming - Last Filed: 12/04/18 15:14> - Past Medical History Allergies/Adverse Reactions: Allergies Allergy/AdvReac Type Severity Reaction Status Date / Time No Known Allergies Allergy Verified 11/06/18 15:39 Home Medications: Ambulatory Orders Aspirin [ASA -] 325 mg PO DAILY 05/09/18 Albuterol Sulfate Inhaler - [Ventolin HFA Inhaler -] 2 inh PO Q4H PRN #1 inhaler 05/24/18 Methadone [Dolophine -] 40 mg PO DAILY 11/06/18 Paroxetine HCl [Paxil -] 10 mg PO DAILY #30 tablet 11/19/18 Quetiapine Fumarate [Seroquel] 100 mg PO HS #30 tablet 11/19/18 Review of Systems - Review of Systems Comments:: 12/04/18 13:51 "GENERAL/CONSTITUTIONAL: No fever or chills. No weakness. HEAD, EYES, EARS, NOSE AND THROAT: No change in vision. No ear pain or discharge. No sore throat. CARDIOVASCULAR: No chest pain, no shortness of breath, no loss of consciousness RESPIRATORY: No cough, wheezing, or hemoptysis. GASTROINTESTINAL: No nausea, vomiting, diarrhea or constipation. GENITOURINARY: No dysuria, frequency, or change in urination. MUSCULOSKELETAL: No joint or muscle swelling or pain. No neck or back pain. SKIN: No rash NEUROLOGIC: No vertigo, no change in strength/sensation. ENDOCRINE: No increased thirst. No abnormal weight change. HEMATOLOGIC/LYMPHATIC: No anemia, easy bleeding, or history of blood clots. ALLERGIC/IMMUNOLOGIC: No hives or skin allergy. <John Gaming - Last Filed: 12/04/18 15:14> *Physical Exam - Vital Signs Last Vital Signs Temp Pulse Resp BP Pulse Ox 97.8 F 74 18 138/100 100 12/04/18 13:23 12/04/18 13:23 12/04/18 13:23 12/04/18 13:23 12/04/18 13:23 <Hiwot Casey - Last Filed: 12/04/18 15:08> - Vital Signs Last Vital Signs Temp Pulse Resp BP Pulse Ox 97.8 F 74 18 138/100 100 12/04/18 13:23 12/04/18 13:23 12/04/18 13:23 12/04/18 13:23 12/04/18 13:23 - Physical Exam Comments: 12/04/18 13:52 GENERAL: Awake, alert, in no acute distress. HEAD: No signs of trauma EYES: PERRLA, EOMI, sclera anicteric, conjunctiva clear ENT: + white powder around nares, Auricles normal inspection, hearing grossly normal, nares patent, oropharynx clear without exudates. Moist mucosa NECK: Nontender, no stepoffs, Normal ROM, supple, no lymphadenopathy, JVD, or masses LUNGS: Breath sounds equal, clear to auscultation bilaterally. No wheezes, and no crackles HEART: Regular rate and rhythm, normal S1 and S2, no murmurs, rubs or gallops ABDOMEN: Soft, nontender, normoactive bowel sounds. No guarding, no rebound. No masses EXTREMITIES: Normal range of motion, no edema. No clubbing or cyanosis. No cords, erythema, or tenderness NEUROLOGICAL: Cranial nerves II through XII intact. 5/5 strength and sensation in all extremities, Normal speech, normal gait, normal cerebellar function SKIN: Warm, Dry, normal turgor, no rashes or lesions noted. <John Gaming - Last Filed: 12/04/18 15:14> Moderate Sedation - Procedure Monitoring Vital Signs: Procedure Monitoring Vital Signs Temperature 97.8 F 12/04/18 13:23 Pulse Rate 74 12/04/18 13:23 Respiratory Rate 18 12/04/18 13:23 Blood Pressure 138/100 12/04/18 13:23 O2 Sat by Pulse Oximetry (%) 100 12/04/18 13:23 <Hiwot Casey - Last Filed: 12/04/18 15:08> - Procedure Monitoring Vital Signs: Procedure Monitoring Vital Signs Temperature 97.8 F 12/04/18 13:23 Pulse Rate 74 12/04/18 13:23 Respiratory Rate 18 12/04/18 13:23 Blood Pressure 138/100 12/04/18 13:23 O2 Sat by Pulse Oximetry (%) 100 12/04/18 13:23 <John Gaming - Last Filed: 12/04/18 15:14> Medical Decision Making - Medical Decision Making 12/04/18 13:52 53 M presenting acutely intoxicated. Suspect PCP vs cocaine. Pt has white powder around nares. - Observe until sober 12/04/18 15:11 Pt reassessed - now clinically sober. AnOx3, denies SI/HI/AVH. Pt admits to using drugs today, states that he regrets using and hopes that he didn't hurt anyone. Pt does not wish to go back to [facility]. States that he lives up the [address] and will walk home. Pt ambulatory in ED with steady gait Ate sandwich and crackers Pt is well appearing, with normal vitals. Clinically stable for DC at this time. I discussed the physical exam findings, ancillary test results and final diagnoses with the patient. I answered all of the patient's questions. The patient was satisfied with the care received and felt comfortable with the discharge plan and treatment plan. The patient agrees to follow up with the primary care physician within 24-72 hours. <John Gaming - Last Filed: 12/04/18 15:14> *DC/Admit/Observation/Transfer - Attestations Scribe Attestion: 12/04/18 15:08 Documentation prepared by Hiwot Casey, acting as medical officer psychiatry for John Gaming MD. <Hiwot Casey - Last Filed: 12/04/18 15:08> - Attestations Physician Attestion: 12/04/18 15:14 I, Dr. John Gaming MD, attest that this document has been prepared under my direction and personally reviewed by me in its entirety. I further attest, that it accurately reflects all work, treatment, procedures and medical decision -making performed by me. <John Gaming - Last Filed: 12/04/18 15:14> Diagnosis at time of Disposition: Intoxication by drug - Discharge Dispostion Disposition: HOME - Patient Instructions Printed Discharge Instructions: DI for Drug Abuse and Drug Addiction Additional Instructions: Please refrain from abusing drugs or alcohol. Go back to [facility] for your scheduled sessions. If you experience any concerning symptoms, return to the ER immediately.
[2018-12-04] MEDS ORDERED: ACETAMINOPHEN 500 MG TABLET (FP) PO ONE (14:46)
[2018-12-04] MEDS ORDERED: ACETAMINOPHEN 325 MG TABLET (FP) ONE (15:06)
[2018-12-04 15:17] VITALS: BP 140/95; PULSE 79
== END 2018-12-04 15:17 | disposition home or self-care (01) ==
LOC: JER 13:21
DX: F19.129 Other psychoactive substance abuse with intoxication, unspecified (principal); B19.20 Unspecified viral hepatitis C without hepatic coma; I10 Essential (primary) hypertension; J45.909 Unspecified asthma, uncomplicated; F99 Mental disorder, not otherwise specified
CPT/HCPCS: 99282-25

== ENCOUNTER 2019-02-26 09:49 | Inpatient (IN) | payer OTHER ==
[2019-02-26 10:59] VITALS: BMI 26.9
--- NOTE | 2019-02-26 13:27 | HP ---
CIWA Score Nausea/Vomitin-No Nausea/No Vomiting Muscle Tremors: 3 Anxiety: 1-Mildly Anxious Agitation: 1-Slight > Activity Paroxysmal Sweats: 2 Orientation: 0-Oriented Tacttile Disturbances: 0-None Auditory Disturbances: 0-None Visual Disturbances: 0-None Headache: 2-Mild CIWA-Ar Total Score: 9 - Admission Criteria OASAS Guidelines: Admission for Medically Managed Detox: Requires at least one of the followin. CIWA greater than 12 2. Seizures within the past 24 hours 3. Delirium tremens within the past 24 hours 4. Hallucinations within the past 24 hours 5. Acute intervention needed for co occurring medical disorder 6. Acute intervention needed for co occurring psychiatric disorder 7. Severe withdrawal that cannot be handled at a lower level of care (continued vomiting, continued diarrhea, abnormal vital signs) requiring intravenous medication and/or fluids 8. Admission ROS BHS - HPI Chief Complaint: I need to be here to get clean and continue with my program at my methadone program. Allergies/Adverse Reactions: Allergies Allergy/AdvReac Type Severity Reaction Status Date / Time No Known Allergies Allergy Verified 02/26/19 10:47 History of Present Illness: pt is a 53yrold male with a history of alcohol dependence seeking and be here for only three day taper. Exam Limitations: No Limitations - Ebola screening Have you traveled outside of the country in the last 21 days: No (N) Have you had contact with anyone from an Ebola affected area: No Have you been sick,other than usual withdrawal symptoms: No Do you have a fever: No - Review of Systems Constitutional: Chills, Diaphoresis, Night Sweats EENT: reports: Tearing, Nose Congestion Respiratory: reports: No Symptoms reported Cardiac: reports: No Symptoms Reported GI: reports: Constipated, Poor Fluid Intake : reports: No Symptoms Reported Musculoskeletal: reports: Back Pain, Joint Pain, Muscle Pain Integumentary: reports: Flushing, Sweating Neuro: reports: Headache, Tingling, Tremors Endocrine: reports: Flushing Hematology: reports: Anemia Psychiatric: reports: Judgement Intact, Mood/Affect Appropiate, Orientated x3, Agitated, Anxious Other Systems: Reviewed and Negative Patient History - Patient Medical History Hx Anemia: Yes (not on any supplement) Hx Asthma: Yes Hx Chronic Obstructive Pulmonary Disease (COPD): Yes Hx Cancer: No Hx Cardiac Disorders: No Hx Congestive Heart Failure: No Hx Hypertension: Yes Hx Hypercholesterolemia: No Hx Pacemaker: No HX Cerebrovascular Accident: No Hx Seizures: No Hx Dementia: No Hx Diabetes: No Hx Gastrointestinal Disorders: Yes (acid reflux) Hx Liver Disease: No Hx Genitourinary Disorders: No Hx Sexually Transmitted Disorders: No Hx Renal Disease (ESRD): No Hx Thyroid Disease: No Hx Human Immunodeficiency Virus (HIV): No (Negative History.) Hx Hepatitis C: Yes (Cleared Virus without medication.) Hx Depression: Yes Hx Suicide Attempt: No Hx Bipolar Disorder: No Hx Schizophrenia: Yes - Patient Surgical History Past Surgical History: Yes Hx Neurologic Surgery: No Hx Cataract Extraction: No Hx Cardiac Surgery: No Hx Lung Surgery: No Hx Breast Surgery: No Hx Breast Biopsy: No Hx Abdominal Surgery: No Hx Appendectomy: No Hx Cholecystectomy: No Hx Genitourinary Surgery: No Hx Section: No Hx Orthopedic Surgery: No Other Surgical History: DENIES. Anesthesia Reaction: No - PPD History Previous Implant?: Yes Documented Results: Negative w/proof PPD to be Administered?: Yes - Reproductive History Patient is a Female of Child Bearing Age (11 -55 yrs old): No - Smoking Cessation Smoking history: Current every day smoker Have you smoked in the past 12 months: Yes Aproximately how many cigarettes per day: 40 Cigars Per Day: 0 Hx Chewing Tobacco Use: No Initiated information on smoking cessation: Yes 'Breaking Loose' booklet given: 02/26/19 - Substance & Tx. History Hx Alcohol Use: Yes Hx Substance Use: Yes Substance Use Type: Alcohol, Cocaine, Heroin, Prescribed Hx Substance Use Treatment: Yes (last detox [facility] 3months ago) - Substances abused PCP Substance route: Smoking Frequency: Daily Amount used: ' a lot' Age of first use: 12 Date of last use: 02/26/19 Cocaine Substance route: Smoking Frequency: Daily Amount used: a little bit Age of first use: 15 Date of last use: 02/22/19 Marijuana/Hashish Substance route: Smoking Frequency: Daily Amount used: 1 bag Age of first use: 10 Date of last use: 02/25/19 Alcohol Substance route: Oral Frequency: Daily Amount used: 6 packs Age of first use: 12 Date of last use: 02/26/19 Family Disease History - Family Disease History Family Disease History: Diabetes: Mother (Alcoholic), Heart Disease: Mother, Other: Mother, Brother (Psychiatric Disorder.) Admission Physical Exam S - Vital Signs Vital Signs: Vital Signs - 24 hr 02/26/19 10:46 Temperature 98.3 F Pulse Rate 78 Respiratory 16 Rate Blood Pressure 123/64 - Physical General Appearance: Yes: Appropriately Dressed, Mild Distress, Tremorous, Irritable, Sweating, Anxious HEENTM: Yes: Normal Voice Respiratory: Yes: Lungs Clear, Normal Breath Sounds, No Respiratory Distress Neck: Yes: No masses,lesions,Nodules Breast: Yes: Within Normal Limits Cardiology: Yes: Regular Rhythm, Regular Rate, S1, S2 Abdominal: Yes: Normal Bowel Sounds Genitourinary: Yes: Within Normal Limits Back: Yes: Normal Inspection Musculoskeletal: Yes: full range of Motion, Back pain, Joint Stiffness, Muscle Pain Extremities: Yes: Normal Capillary Refill, Normal Inspection, Non-Tender, Tremors Neurological: Yes: Fully Oriented, Alert, Normal Response Integumentary: Yes: Normal Color Lymphatic: Yes: Within Normal Limits - Diagnostic (1) Alcohol dependence with uncomplicated withdrawal Current Visit: Yes Status: Chronic (2) Back spasm Current Visit: No Status: Acute (3) Cocaine dependence, uncomplicated Current Visit: Yes Status: Chronic (4) Headache Current Visit: Yes Status: Chronic Qualifiers: Headache type: unspecified Headache chronicity pattern: acute headache Intractability: not intractable Qualified Code(s): R51 - Headache (5) History of neck injury Current Visit: No Status: Acute (6) PCP dependence Current Visit: Yes Status: Chronic (7) Substance induced mood disorder Current Visit: No Status: Acute (8) Asthma Current Visit: Yes Status: Chronic Qualifiers: Asthma severity: mild Asthma persistence: unspecified Asthma complication type: uncomplicated Qualified Code(s): J45.909 - Unspecified asthma, uncomplicated (9) Cannabis dependence Current Visit: No Status: Chronic (10) Cocaine dependence Current Visit: No Status: Chronic Qualifiers: Substance use status: uncomplicated Qualified Code(s): F14.20 - Cocaine dependence, uncomplicated (11) Depression Current Visit: No Status: Chronic (12) GERD (gastroesophageal reflux disease) Current Visit: Yes Status: Chronic Qualifiers: Esophagitis presence: without esophagitis Qualified Code(s): K21.9 - Gastro -esophageal reflux disease without esophagitis (13) Low back pain with left-sided sciatica Current Visit: No Status: Chronic Qualifiers: Chronicity: acute Back pain laterality: left Qualified Code(s): M54.42 - Lumbago with sciatica, left side (14) Methadone maintenance therapy patient Current Visit: Yes Status: Chronic Comment: dose has been verified. (15) Nicotine dependence Current Visit: Yes Status: Chronic Qualifiers: Nicotine product type: cigarettes Substance use status: in withdrawal Qualified Code(s): F17.213 - Nicotine dependence, cigarettes, with withdrawal (16) PCP (phencyclidine) abuse Current Visit: No Status: Chronic (17) Schizophrenia Current Visit: No Status: Chronic Qualifiers: Schizophrenia type: unspecified Qualified Code(s): F20.9 - Schizophrenia, unspecified Comment: history. nonadherent due to not having medications. Pt. agreeable to restarting medications. (18) History of depression Current Visit: No Status: Suspected (19) History of schizophrenia Current Visit: No Status: Suspected (20) Hep C w/o coma, chronic Current Visit: No Status: Resolved Comment: Patient Reports Spontaneously Resolved Without Treatment. Cleared for Admission [facility] - Detox or Rehab [facility] Level of Care: Medically Managed Detox Regimen/Protocol: Librium Breathalyzer - Breathalyzer Breathalyzer: 0 Urine Drug Screen - Test Device Lot number: [id number] Expiration date: 11/14/20 - Control Is test valid?: Yes - Results Drug screen NEGATIVE: No Urine drug screen results: THC-Marijuana, MOP-Opiates, MTD-Methadone Inpatient Rehab Admission - Rehab Decision to Admit Inpatient rehab admission?: No
[2019-02-26] MEDS ORDERED: hydrOXYzine PAMOATE 25 MG CAPSULE (FP) PO PRN (13:31)
[2019-02-26] MEDS ORDERED: DICYCLOMINE HCL 10 MG CAPSULE PO PRN (13:31)
[2019-02-26] MEDS ORDERED: MAGNESIUM HYDROX 2400MG/30ML ORAL SUSPENSION 30 ML CUP PO PRN (13:31)
[2019-02-26] MEDS ORDERED: NICOTINE POLACRILEX 2 MG GUM BUC PRN (13:31)
[2019-02-26] MEDS ORDERED: MELATONIN 5 MG TABLETS PO PRN (13:31)
[2019-02-26] MEDS ORDERED: ONDANSETRON *ODT* 4 MG TABLET SL PRN (13:31)
[2019-02-26] MEDS ORDERED: NICOTINE POLACRILEX 4 MG GUM BUC PRN (13:31)
[2019-02-26] MEDS ORDERED: chlordiazePOXIDE HCL 10 MG CAPSULE PO PRN (13:31)
[2019-02-26] MEDS ORDERED: MENTHOL/PHENOL 1 EACH UD MM PRN (13:31)
[2019-02-26] MEDS ORDERED: BISMUTH SUBSALICYLATE 262 MG/15 ML BTL PO PRN (13:31)
[2019-02-26] MEDS ORDERED: ACETAMINOPHEN 325 MG TABLET (FP) PO PRN ×2 (13:31)
[2019-02-26] MEDS ORDERED: MAGNESIUM CITRATE 300 ML BOTTLE PO PRN (13:31)
[2019-02-26] MEDS ORDERED: ALBUTEROL SO4 8 GM HFA INHALER IH PRN (13:39)
[2019-02-26] MEDS ORDERED: chlordiazePOXIDE HCL 25 MG CAPSULE PO ONE (14:35)
[2019-02-26 18:06] LABS: HEMATOCRIT 40.1 % (35.4-49); HEMOGLOBIN 12.8 GM/dL (11.7-16.9); MCHC 31.8 g/dl (32.0-35.9); MEAN CELL VOLUME 94.2 fl (80-96); PLATELET COUNT 228 K/MM3 (134-434); RBC 4.26 M/mm3 (4.00-5.60); RDW 15.4 % (11.9-15.9); WHITE BLOOD COUNT 6.2 K/mm3 (4.0-10.0)
[2019-02-26 18:17] LABS: ALBUMIN 3.3 g/dl (3.4-5.0); BILIRUBIN,TOTAL 0.5 mg/dL (0.2-1); CALCIUM 9.2 mg/dL (8.5-10.1); CREATININE 0.7 mg/dL (0.55-1.3); POTASSIUM 4.1 mmol/L (3.5-5.1); TOT PROT 8.3 g/dl (6.4-8.2)
[2019-02-26 19:44] LABS: URINE APPEARANCE CLEAR; URINE BILIRUBIN NEGATIVE (NEGATIVE); URINE COLOR YELLOW; URINE GLUCOSE (UA) NEGATIVE (NEGATIVE); URINE KETONE NEGATIVE (NEGATIVE); URINE LEUK ESTERASE NEGATIVE (NEGATIVE); URINE NITRITE NEGATIVE (NEGATIVE); URINE PROTEIN NEGATIVE (NEGATIVE); URINE UROBILINOGEN 0.2 mg/dL (0.2-1.0)
[2019-02-26] MEDS: chlordiazePOXIDE HCL 25 MG CAPSULE PO SCH (22:44)
[2019-02-26] MEDS: METHOCARBAMOL 500 MG TABLET PO PRN (22:44)
[2019-02-26] MEDS: THIAMINE HCL 100 MG TABLET (FP) PO SCH (22:44)
[2019-02-26] MEDS: IBUPROFEN 400 MG TABLET (FP) PO PRN (22:45)
[2019-02-27] MEDS ORDERED: METHADONE HCL 10 MG TABLET ONE (04:19)
[2019-02-27] MEDS ORDERED: METHADONE HCL 40 MG DISPERSABLE TABLET ONE (04:20)
[2019-02-27] MEDS: METHOCARBAMOL 500 MG TABLET PO PRN ×2 (05:05→11:21)
[2019-02-27] MEDS: METHADONE 40 MG, METHADONE 10 MG PO SCH (05:09)
[2019-02-27] MEDS: chlordiazePOXIDE HCL 25 MG CAPSULE PO SCH ×2 (05:09→15:51)
[2019-02-27] MEDS ORDERED: METHADONE HCL 40 MG DISPERSABLE TABLET PO SCH (06:00)
[2019-02-27] MEDS: ASPIRIN 325 MG TABLET PO SCH (09:43)
[2019-02-27] MEDS: NICOTINE 21 MG/24 HOURS TOPICAL PATCH TD SCH (09:43)
[2019-02-27] MEDS: PRENATAL VITAMINS W/ FOLIC ACID TABLET (FP) PO SCH (09:43)
[2019-02-27] MEDS: IBUPROFEN 400 MG TABLET (FP) PO PRN (11:21)
[2019-02-27] MEDS: BACITRACIN 0.9 GM PACKET TP SCH (12:37)
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
[2019-02-27] MEDS: MAG HYDROX/AL HYDROX/SIMETH 30 ML UNIT-DOSE CUP PO PRN ×2 (13:37→18:57)
--- NOTE | 2019-02-27 14:48 | PN ---
S CIWA - CIWA Score Nausea/Vomitin Muscle Tremors: 2 Anxiety: 2 Agitation: 2 Paroxysmal Sweats: 1-Minimal Palms Moist Orientation: 0-Oriented Tacttile Disturbances: 1-Very Mild Itch/Numbness Auditory Disturbances: 1-Very Mild Visual Disturbances: 0-None Headache: 2-Mild CIWA-Ar Total Score: 13 BHS Progress Note (SOAP) Subjective: alert,irritable,anxious,interrupted sleep,tremor Objective: 02/27/19 14:47 Vital Signs Temperature 98.4 F 02/27/19 10:35 Pulse Rate 95 H 02/27/19 10:35 Respiratory Rate 18 02/27/19 10:35 Blood Pressure 114/77 02/27/19 10:35 O2 Sat by Pulse Oximetry (%) 02/27/19 14:47 Laboratory Last Values WBC 6.2 K/mm3 (4.0-10.0) 02/26/19 14:00 RBC 4.26 M/mm3 (4.00-5.60) 02/26/19 14:00 Hgb 12.8 GM/dL (11.7-16.9) 02/26/19 14:00 Hct 40.1 % (35.4-49) 02/26/19 14:00 MCV 94.2 fl (80-96) 02/26/19 14:00 MCH 30.0 pg (25.7-33.7) 02/26/19 14:00 MCHC 31.8 g/dl (32.0-35.9) L 02/26/19 14:00 RDW 15.4 % (11.9-15.9) 02/26/19 14:00 Plt Count 228 K/MM3 (134-434) 02/26/19 14:00 MPV 9.0 fl (7.5-11.1) 02/26/19 14:00 Sodium 138 mmol/L (136-145) 02/26/19 14:00 Potassium 4.1 mmol/L (3.5-5.1) 02/26/19 14:00 Chloride 100 mmol/L (98-107) 02/26/19 14:00 Carbon Dioxide 34 mmol/L (21-32) H 02/26/19 14:00 Anion Gap 4 MMOL/L (8-16) L 02/26/19 14:00 BUN 5 mg/dL (7-18) L 02/26/19 14:00 Creatinine 0.7 mg/dL (0.55-1.3) 02/26/19 14:00 Est GFR (CKD-EPI)AfAm 124.87 02/26/19 14:00 Est GFR (CKD-EPI)NonAf 107.74 02/26/19 14:00 Random Glucose 83 mg/dL (74-106) 02/26/19 14:00 Calcium 9.2 mg/dL (8.5-10.1) 02/26/19 14:00 Total Bilirubin 0.5 mg/dL (0.2-1) 02/26/19 14:00 AST 32 U/L (15-37) 02/26/19 14:00 ALT 31 U/L (13-61) 02/26/19 14:00 Alkaline Phosphatase 128 U/L (45-117) H 02/26/19 14:00 Total Protein 8.3 g/dl (6.4-8.2) H 02/26/19 14:00 Albumin 3.3 g/dl (3.4-5.0) L 02/26/19 14:00 Urine Color Yellow 02/26/19 15:00 Urine Appearance Clear 02/26/19 15:00 Urine pH 6.0 (5.0-8.0) 02/26/19 15:00 Ur Specific [place] 1.003 (1.010-1.035) L 02/26/19 15:00 Urine Protein Negative (NEGATIVE) 02/26/19 15:00 Urine Glucose (UA) Negative (NEGATIVE) 02/26/19 15:00 Urine Ketones Negative (NEGATIVE) 02/26/19 15:00 Urine Blood Negative (NEGATIVE) 02/26/19 15:00 Urine Nitrite Negative (NEGATIVE) 02/26/19 15:00 Urine Bilirubin Negative (NEGATIVE) 02/26/19 15:00 Urine Urobilinogen 0.2 mg/dL (0.2-1.0) 02/26/19 15:00 Ur Leukocyte Esterase Negative (NEGATIVE) 02/26/19 15:00 RPR Titer Nonreactive (NONREACTIVE) 02/26/19 14:00 Assessment: 02/27/19 14:47 withdrawal symptom Plan: continue detox
[2019-02-27] MEDS: QUEtiapine FUMARATE 50 MG TABLET PO SCH (22:15)
[2019-02-27] MEDS: chlordiazePOXIDE 5 MG CAPSULE PO SCH (22:15)
[2019-02-27] MEDS: THIAMINE HCL 100 MG TABLET (FP) PO SCH (22:16)
[2019-02-28] MEDS: chlordiazePOXIDE 5 MG CAPSULE PO SCH ×2 (06:53→13:45)
[2019-02-28] MEDS ORDERED: METHADONE HCL 10 MG TABLET ONE (08:06)
[2019-02-28] MEDS ORDERED: METHADONE HCL 40 MG DISPERSABLE TABLET ONE (08:06)
[2019-02-28] MEDS: PRENATAL VITAMINS W/ FOLIC ACID TABLET (FP) PO SCH (10:20)
[2019-02-28] MEDS: BACITRACIN 0.9 GM PACKET TP SCH (10:20)
[2019-02-28] MEDS: NICOTINE 21 MG/24 HOURS TOPICAL PATCH TD SCH (10:20)
[2019-02-28] MEDS: ASPIRIN 325 MG TABLET PO SCH (10:20)
[2019-02-28] MEDS: METHADONE 40 MG, METHADONE 10 MG PO SCH (10:21)
--- NOTE | 2019-02-28 14:44 | PN ---
S CIWA - CIWA Score Nausea/Vomitin-No Nausea/No Vomiting Muscle Tremors: 1-None Visible, but [place] Anxiety: 1-Mildly Anxious Agitation: 1-Slight > Activity Paroxysmal Sweats: No Perspiration Orientation: 0-Oriented Tacttile Disturbances: 0-None Auditory Disturbances: 0-None Visual Disturbances: 0-None Headache: 0-None Present CIWA-Ar Total Score: 3 BHS Progress Note (SOAP) Subjective: pt states doing well on the alcohol detox protocol, wants to go home tomorrow- would like robaxin at discharge for back and leg pain O: Vital Signs - 24 hr 02/27/19 02/27/19 02/28/19 15:25 21:49 03:30 Temperature 98.4 F 97.5 F L Pulse Rate 90 95 H Respiratory 19 18 18 Rate Blood Pressure 118/70 129/69 02/28/19 02/28/19 02/28/19 07:05 09:11 13:35 Temperature 97.3 F L 98.1 F 99.5 F Pulse Rate 77 97 H 91 H Respiratory 18 18 18 Rate Blood Pressure 126/87 129/63 121/82 Laboratory Tests 02/26/19 02/26/19 02/26/19 14:00 14:00 14:00 WBC 6.2 RBC 4.26 Hgb 12.8 Hct 40.1 MCV 94.2 MCH 30.0 MCHC 31.8 L RDW 15.4 Plt Count 228 MPV 9.0 Sodium 138 Potassium 4.1 Chloride 100 Carbon Dioxide 34 H Anion Gap 4 L BUN 5 L Creatinine 0.7 Est GFR (CKD-EPI)AfAm 124.87 Est GFR (CKD-EPI)NonAf 107.74 Random Glucose 83 Calcium 9.2 Total Bilirubin 0.5 AST 32 ALT 31 Alkaline Phosphatase 128 H Total Protein 8.3 H Albumin 3.3 L Urine Color Urine Appearance Urine pH Ur Specific [place] Urine Protein Urine Glucose (UA) Urine Ketones Urine Blood Urine Nitrite Urine Bilirubin Urine Urobilinogen Ur Leukocyte Esterase RPR Titer Nonreactive 02/26/19 15:00 WBC RBC Hgb Hct MCV MCH MCHC RDW Plt Count MPV Sodium Potassium Chloride Carbon Dioxide Anion Gap BUN Creatinine Est GFR (CKD-EPI)AfAm Est GFR (CKD-EPI)NonAf Random Glucose Calcium Total Bilirubin AST ALT Alkaline Phosphatase Total Protein Albumin Urine Color Yellow Urine Appearance Clear Urine pH 6.0 Ur Specific [place] 1.003 L Urine Protein Negative Urine Glucose (UA) Negative Urine Ketones Negative Urine Blood Negative Urine Nitrite Negative Urine Bilirubin Negative Urine Urobilinogen 0.2 Ur Leukocyte Esterase Negative RPR Titer a/p: continue alcohol detox protocol, d/c tomorrow, robaxin prescription sent
[2019-02-28] MEDS: MAG HYDROX/AL HYDROX/SIMETH 30 ML UNIT-DOSE CUP PO PRN (20:28)
[2019-02-28] MEDS: THIAMINE HCL 100 MG TABLET (FP) PO SCH (21:26)
[2019-02-28] MEDS: chlordiazePOXIDE HCL 10 MG CAPSULE PO SCH (21:26)
[2019-02-28] MEDS: QUEtiapine FUMARATE 50 MG TABLET PO SCH (21:26)
[2019-03-01] MEDS ORDERED: METHADONE HCL 40 MG DISPERSABLE TABLET ONE (04:13)
[2019-03-01] MEDS ORDERED: METHADONE HCL 10 MG TABLET ONE (04:13)
[2019-03-01 06:08] VITALS: BP 122/82; PULSE 103; TEMP 97.2
[2019-03-01] MEDS: METHADONE 40 MG, METHADONE 10 MG PO SCH (06:16)
[2019-03-01] MEDS: chlordiazePOXIDE HCL 10 MG CAPSULE PO SCH (06:17)
--- NOTE | 2019-03-01 13:16 | DS ---
[facility] Detox Discharge Summary Admission Date: 02/26/19 Discharge Date: 03/01/19 - History Present History: Alcohol Dependence, Cannabis Dependence, Cocaine Dependence Additional Comments: Pt is medically cleared and is discharged today. As per nursing home social worker notes, "Clinician met with client to discuss discharge planning. He reports wanting to engage with positive directions. Clinician called the program and they reported that he can come in for a intake 03/03/19 at 8:45 am". Pt is alert and oriented x3. Pt is encouraged to follow-up with his PMD and also follow-up with outpatient CD program. Pt verbalized understanding. Pt received prescriptions from the previous provider. Pertinent Past History: H/O asthma, - Physical Exam Results Vital Signs: Vital Signs Temperature 97.2 F L 03/01/19 06:00 Pulse Rate 103 H 03/01/19 06:00 Respiratory Rate 18 03/01/19 06:00 Blood Pressure 122/82 03/01/19 06:00 O2 Sat by Pulse Oximetry (%) Lab Results WBC 6.2 K/mm3 (4.0-10.0) 02/26/19 14:00 RBC 4.26 M/mm3 (4.00-5.60) 02/26/19 14:00 Hgb 12.8 GM/dL (11.7-16.9) 02/26/19 14:00 Hct 40.1 % (35.4-49) 02/26/19 14:00 MCV 94.2 fl (80-96) 02/26/19 14:00 MCHC 31.8 g/dl (32.0-35.9) L 02/26/19 14:00 RDW 15.4 % (11.9-15.9) 02/26/19 14:00 Plt Count 228 K/MM3 (134-434) 02/26/19 14:00 Sodium 138 mmol/L (136-145) 02/26/19 14:00 Potassium 4.1 mmol/L (3.5-5.1) 02/26/19 14:00 Chloride 100 mmol/L (98-107) 02/26/19 14:00 Carbon Dioxide 34 mmol/L (21-32) H 02/26/19 14:00 Anion Gap 4 MMOL/L (8-16) L 02/26/19 14:00 BUN 5 mg/dL (7-18) L 02/26/19 14:00 Creatinine 0.7 mg/dL (0.55-1.3) 02/26/19 14:00 Random Glucose 83 mg/dL (74-106) 02/26/19 14:00 Calcium 9.2 mg/dL (8.5-10.1) 02/26/19 14:00 Labs noted. Pertinent Admission Physical Exam Findings: withdrawal symptoms - Treatment Hospital Course: Detox Protocol Followed, Detoxed Safely, Responded well, Discharged Condition Good - Medication Discharge Medications: Ambulatory Orders Aspirin [ASA -] 325 mg PO DAILY 05/09/18 Albuterol Sulfate Inhaler - [Ventolin HFA Inhaler -] 2 inh PO Q4H PRN #1 inhaler 05/24/18 Methadone [Dolophine -] 40 mg PO DAILY 11/06/18 Paroxetine HCl [Paxil -] 10 mg PO DAILY #30 tablet 11/19/18 Quetiapine Fumarate [Seroquel] 100 mg PO HS #30 tablet 11/19/18 Quetiapine Fumarate [Seroquel -] 50 mg PO HS #30 tablet 02/17/19 Methocarbamol [Robaxin -] 500 mg PO Q6H PRN #20 tablet 02/28/19 - Diagnosis (1) Alcohol dependence with uncomplicated withdrawal Status: Acute (2) Back spasm Status: Acute (3) Cannabis dependence Status: Acute (4) Cocaine dependence, uncomplicated Status: Acute (5) Asthma Status: Chronic Qualifiers: Asthma severity: mild Asthma persistence: unspecified Asthma complication type: uncomplicated Qualified Code(s): J45.909 - Unspecified asthma, uncomplicated (6) GERD (gastroesophageal reflux disease) Status: Chronic Qualifiers: Esophagitis presence: without esophagitis Qualified Code(s): K21.9 - Gastro -esophageal reflux disease without esophagitis - AMA Did Patient Leave Against Medical Advice: No
== END 2019-03-01 09:10 | disposition home or self-care (01) | DRG 773 ==
LOC: YASAS 09:49 → Y6N 14:20
PROVIDERS: ADMIT Surgery; ATTEND Surgery
PROC: HZ2ZZZZ Detoxification Services for Substance Abuse Treatment (ICD-10-PCS; principal; 2019-02-26)
DX: F10.230 Alcohol dependence with withdrawal, uncomplicated (principal); F14.20 Cocaine dependence, uncomplicated; F11.20 Opioid dependence, uncomplicated; F16.20 Hallucinogen dependence, uncomplicated; F12.20 Cannabis dependence, uncomplicated; F17.213 Nicotine dependence, cigarettes, with withdrawal; F19.282 Other psychoactive substance dependence with psychoactive substance-induced sleep disorder; F19.24 Other psychoactive substance dependence with psychoactive substance-induced mood disorder; F20.9 Schizophrenia, unspecified; J45.909 Unspecified asthma, uncomplicated; K21.9 Gastro-esophageal reflux disease without esophagitis; B18.2 Chronic viral hepatitis C; M62.830 Muscle spasm of back; D64.9 Anemia, unspecified
CPT/HCPCS: 36415; 80053; 81003; 85027; 86593

== ENCOUNTER → 2019-06-13 | Outpatient (CLI) | payer OTHER | LOC: YHH 15:01 ==

== ENCOUNTER 2019-06-27 08:12 | Inpatient (IN) | payer OTHER | END 2019-06-30 17:06 | LOC: YASAS 08:12 → Y6N 10:27 ==

== ENCOUNTER 2020-02-08 16:03 | Emergency (ER) | payer OTHER ==
[2020-02-08 16:07] VITALS: BP 137/85; PULSE 84; TEMP 97.2; BMI 26.4
--- NOTE | 2020-02-08 16:07 | PDOC ---
Rapid Medical Evaluation Chief Complaint: Pain Time Seen by Provider: 02/08/20 16:05 Medical Evaluation: Allergies Allergy/AdvReac Type Severity Reaction Status Date / Time No Known Allergies Allergy Verified 06/27/19 08:54 02/08/20 16:06 CC: epigastric pain x4 days; mother is covid positive PE: epigastric tenderness with guarding Orders: labs, ekg Discharge Disposition - Diagnosis Epigastric pain - Referrals - Patient Instructions - Post Discharge Activity
[2020-02-08] MEDS ORDERED: FAMOTIDINE 20 MG/50 ML IVPB 20 MG/50 ML MG IVPB ONE ×2 (16:46→16:58)
[2020-02-08] MEDS ORDERED: MAG HYDROX/AL HYDROX/SIMETH 30 ML UNIT-DOSE CUP PO ONE (16:46)
[2020-02-08] MEDS ORDERED: MAG HYDROX/AL HYDROX/SIMETH 30 ML UNIT-DOSE CUP ONE (16:58)
--- NOTE | 2020-02-08 17:14 | PDOC ---
History of Present Illness - General Chief Complaint: Pain Stated Complaint: ABDOMINAL PAIN Time Seen by Provider: 02/08/20 16:05 History Source: Patient Exam Limitations: No Limitations - History of Present Illness Initial Comments: 02/08/20 17:09 Patient is a 57-year-old male with history of asthma, polysubstance abuse and questionable hepatitis C who presents to the ED with complaint of epigastric abdominal pain that he has had for the last 4 to 5 days. He states the pain is "killing him". He admits to vomiting twice and states it was nonbloody and nonbilious. He denies any diarrhea. He denies any fevers or chills. Of note: The patient states his mother has been diagnosed with COVID-19 and he lives with her. He denies any cough, URI symptoms, shortness of breath or chest pain. He states the pain does radiate to his back. He denies any urinary symptoms. The patient has not taken anything for his symptoms. The patient does admit to smoking PCP a few days ago. Past History - Past Medical History Allergies/Adverse Reactions: Allergies Allergy/AdvReac Type Severity Reaction Status Date / Time No Known Allergies Allergy Verified 02/08/20 16:07 Home Medications: Ambulatory Orders Aspirin [ASA -] 325 mg PO DAILY 05/09/18 Albuterol Sulfate Inhaler - [Ventolin HFA Inhaler -] 2 inh PO Q4H PRN #1 inhaler 05/24/18 Paroxetine HCl [Paxil -] 10 mg PO DAILY #30 tablet 11/19/18 Quetiapine Fumarate [Seroquel -] 50 mg PO HS #30 tablet 06/25/19 Anemia: Yes (not on any supplement) Asthma: Yes Cancer: No Cardiac Disorders: No CVA: No COPD: No CHF: No Dementia: No Diabetes: No GI Disorders: No Disorders: No HTN: No Hypercholesterolemia: No Kidney Stones: No Liver Disease: No Psychiatric Problems: Yes Seizures: No Thyroid Disease: No - Surgical History Abdominal Surgery: No Appendectomy: No Cardiac Surgery: No Cholecystectomy: No Lung Surgery: No Neurologic Surgery: No Orthopedic Surgery: No - Reproductive History Testicular Surgery: No - Immunization History Immunization Up to Date: Yes - Psycho Social/Smoking Cessation Hx Smoking History: Current every day smoker Have you smoked in the past 12 months: Yes Number of Cigarettes Smoked Daily: 40 Cigars Per Day: 0 Information on smoking cessation initiated: No 'Breaking Loose' booklet given: 02/26/19 Hx Alcohol Use: Yes Drug/Substance Use Hx: Yes Substance Use Type: Alcohol, Cocaine, Heroin, Prescribed Hx Substance Use Treatment: Yes Review of Systems - Review of Systems Comments:: 02/08/20 17:11 - Review of Systems Able to Perform ROS?: Yes Constitutional: No: Fever, Chills, Loss of Appetite, Night Sweats, Weakness HEENTM: No: Eye Pain, Vision changes, Ear Pain, Throat Pain, Throat Swelling, Mouth Pain, Difficulty Swallowing Respiratory: No: Cough, Shortness of Breath, Wheezing, Sputum Production Cardiac (ROS): No: Chest Pain, Chest Tightness, Palpitations, Irregular Heart Beat, Edema ABD/GI: No: Diarrhea; positive: Nausea, Vomiting, Abdominal Pain : No Dysuria, No Hematuria, No Frequency, No Urgency, No Penile Discharge/Pain Musculoskeletal: No: Muscle Pain, Back Pain, Joint Pain, Muscle Weakness, Neck Pain Integumentary: No: Lesions, Rash Neurological: No: Headache, Numbness, Tingling, Weakness, Speech Difficulties *Physical Exam - Vital Signs Last Vital Signs Temp Pulse Resp BP Pulse Ox 97.2 F L 84 18 137/85 100 02/08/20 16:05 02/08/20 16:05 02/08/20 16:05 02/08/20 16:05 02/08/20 16:05 - Physical Exam 02/08/20 17:12 - Physical Exam General Appearance: Nourished, Appropriately Dressed, No Distress HEENT: EOMI, Normal Voice, No Muffled/Hoarse voice, No Nasal Congestion, No Rhinorrhea, Hearing Grossly Normal Neck: Supple, No Lymphadenopathy (R), No Lymphadenopathy (L), No Rigidity, No Decreased range of motion Respiratory/Chest: Lungs Clear, Normal Breath Sounds. No Respiratory Distress, No Accessory Muscle Use Cardiovascular: Regular Rhythm, Regular Rate, S1, S2 Gastrointestinal/Abdominal: Normal Bowel Sounds, Soft. Non-tender, No Guarding, No Rebound, No Rigidity; mild epigastric abdominal tenderness to palpation. No right upper quadrant tenderness to palpation. Abdomen soft with normal bowel sounds. Mild CVA tenderness on the right side. Musculoskeletal: Normal Inspection. No Decreased Range of Motion Extremity: Normal Capillary Refill, Normal Inspection Integumentary: Normal Color, Dry. No Rash Neurologic: e commerce analyst II-XII NML intact, Fully Oriented, Alert, Normal Mood/Affect, Normal Response ED Treatment Course - LABORATORY CBC & Chemistry Diagram: 02/08/20 16:45 02/08/20 16:45 - RADIOLOGY Radiology Studies Ordered: Category Date Time Status ABDOMEN CT WITHOUT CONTRAST [CT] Stat CT Scan 02/08/20 16:46 Ordered Medical Decision Making - Medical Decision Making 02/08/20 17:13 Assessment: Patient is a 54-year-old male with epigastric abdominal pain that radiates to his back for the last 4 to 5 days. Plan: -EKG ordered -Labs ordered including a cardiac panel -CT abdomen pelvis ordered -Maalox and Pepcid ordered -Will reassess 02/08/20 19:17 The patient has been made aware that his labs appear stable. He states that he is feeling much better and his pain has resolved significantly. He has also been made aware that his CT scan shows inflammation around the pancreas and stomach and cannot rule out pancreatitis, mesenteritis or even neoplasm. He has been advised to follow-up with GI for further evaluation and treatment and has been given GI referral. The patient is also interested in getting tested for COVID-19 which we will give him information on doing so as an outpatient. He has been given strict return precautions such as worsening abdominal pain, profuse vomiting, blood in his vomitus or stool, shaking fever or chills or any other worsening symptoms. He understands and agrees with this treatment plan and the patient is stable for discharge. Discharge - Discharge Information Problems reviewed: Yes Clinical Impression/Diagnosis: Epigastric pain Condition: Stable Disposition: HOME - Follow up/Referral Referrals: Lj Zamora MD [Staff Physician] - 2 Days - Patient Discharge Instructions Patient Printed Discharge Instructions: DI for Abdominal Pain-Adult Additional Instructions: Get plenty of rest and drink plenty of fluids. Eat a bland diet for the next several days as to not upset your stomach. Be sure to follow-up with the GI doctor for further evaluation and treatment. You have been made aware that your CAT scan shows inflammation around your pancreas and stomach which can just mean an inflammatory process or may be caused by more complex disease, including a cancer process. This must be followed up with your primary doctor and GI. You have requested information on COVID testing which you can find below. Return to the emergency department for worsening pain, profuse vomiting, blood in your stool or vomit, high fevers or any other worsening symptoms. You were seen for abdominal pain and had were interested in Coronavirus (COVID-19) testing. Please call the [facility] testing center to make an appointment at or you can call [facility] at from 8:30 AM to 6 PM; or you can visit the [facility] website: [email or web address] for more information about testing at the [facility]. Take Tylenol 650 mg every 6 hours as needed for fever or pain. You may take Robitussin or other [id number] cough syrup. Follow the dosing instructions on the bottle. Warm tea, honey, and salt water gargles may help your symptoms. Please take precautions and self quarantine for 2 weeks and follow-up with your primary care doctor and the Department of Health. Return to the nearest emergency department for shortness of breath, difficulty breathing, chest pain, or if you have any changes in your symptoms. - Post Discharge Activity
[2020-02-08 17:34] LABS: BASO % 0.4 % (0-2.0); EOS % 1.2 % (0-4.5); HEMATOCRIT 38.5 % (35.4-49); HEMOGLOBIN 12.6 GM/dL (11.7-16.9); LYMPH % 27.6 % (8-40); MCH 30.5 pg (25.7-33.7); MCHC 32.9 g/dl (32.0-35.9); MEAN CELL VOLUME 92.7 fl (80-96); MONO % 10.4 % (3.8-10.2); NEUT % 60.4 % (42.8-82.8); PLATELET COUNT 214 K/MM3 (134-434); RBC 4.15 M/mm3 (4.00-5.60); RDW 15.2 % (11.9-15.9); WHITE BLOOD COUNT 7.9 K/mm3 (4.0-10.0)
[2020-02-08 17:35] LABS: PH,URINE 7.5 (5.0-8.0); URINE APPEARANCE CLEAR; URINE BILIRUBIN NEGATIVE (NEGATIVE); URINE COLOR YELLOW; URINE GLUCOSE (UA) NEGATIVE (NEGATIVE); URINE KETONE NEGATIVE (NEGATIVE); URINE LEUK ESTERASE NEGATIVE (NEGATIVE); URINE NITRITE NEGATIVE (NEGATIVE); URINE PROTEIN NEGATIVE (NEGATIVE)
[2020-02-08 18:02] LABS: ALBUMIN 3.5 g/dl (3.4-5.0); ALK PHOS 109 U/L (45-117); ANION GAP 6 MMOL/L (8-16); BILIRUBIN,TOTAL 0.6 mg/dL (0.2-1); BLOOD UREA NITROGEN 6.8 mg/dL (7-18); CALCIUM 8.5 mg/dL (8.5-10.1); CHLORIDE 103 mmol/L (98-107); CO2 27 mmol/L (21-32); CREATININE 0.7 mg/dL (0.55-1.3); GLUCOSE,RANDOM 101 mg/dL (74-106); LIPASE 190 U/L (73-393); POTASSIUM 4.8 mmol/L (3.5-5.1); SGOT/AST 56 U/L (15-37); SGPT/ALT 35 U/L (13-61); SODIUM 136 mmol/L (136-145); TOT PROT 8.3 g/dl (6.4-8.2)
--- NOTE | 2020-02-09 14:41 | EKG ---
Test Reason : Blood Pressure : / mmHG Vent. Rate : 075 BPM Atrial Rate : 075 BPM P-R Int : 170 ms QRS Dur : 068 ms QT Int : 434 ms P-R-T Axes : 061 060 048 degrees QTc Int : 484 ms NORMAL SINUS RHYTHM WITH SINUS ARRHYTHMIA PROLONGED QT ABNORMAL ECG WHEN COMPARED WITH ECG OF 22-OCT-2018 12:21, NO SIGNIFICANT CHANGE WAS FOUND Confirmed by CASSIE REILLY MD ([id number]) on 02/09/2020 2:41:24 PM Referred By: Confirmed By:CASSIE REILLY MD
== END 2020-02-08 19:45 | disposition home or self-care (01) ==
LOC: JER 16:03
PROC: 3E033GC Introduction of Other Therapeutic Substance into Peripheral Vein, Percutaneous Approach (ICD-10-PCS; principal; 2020-02-08)
DX: R10.13 Epigastric pain (principal)
CPT/HCPCS: 36415; 74150-TC; 80053; 81003; 82550; 82553; 83605; 83690; 84484; 85025; 87086; 93005; 93010; 96365; 99285-25

== ENCOUNTER 2020-05-07 09:50 | Emergency (ER) | payer OTHER ==
[2020-05-07 10:08] VITALS: BMI 27.3
[2020-05-07 11:09] LABS: BASO % 0.9 % (0-2.0); EOS % 0.6 % (0-4.5); HEMATOCRIT 33.7 % (35.4-49); HEMOGLOBIN 10.8 GM/dL (11.7-16.9); LYMPH % 27.2 % (8-40); MCH 27.2 pg (25.7-33.7); MCHC 32.1 g/dl (32.0-35.9); MEAN CELL VOLUME 84.8 fl (80-96); MEAN PLT VOLUME 8.3 fl (7.5-11.1); NEUT % 60.3 % (42.8-82.8); PLATELET COUNT 379 K/MM3 (134-434); RBC 3.98 M/mm3 (4.00-5.60); RDW 15.8 % (11.9-15.9)
--- NOTE | 2020-05-07 11:15 | PDOC ---
History of Present Illness <Zayda Duval - Last Filed: 05/07/20 12:41> - General History Source: Patient Exam Limitations: Other - History of Present Illness Timing/Duration: reports: getting worse <Codey Ling - Last Filed: 05/07/20 14:27> - General Chief Complaint: Pain Stated Complaint: ABD PAIN Time Seen by Provider: 05/07/20 10:36 Past History <Zayda Duval - Last Filed: 05/07/20 12:41> - Medical History Anemia: Yes (not on any supplement) Asthma: Yes Cancer: No Cardiac Disorders: No CVA: No COPD: No CHF: No Dementia: No Diabetes: No GI Disorders: No Disorders: No HTN: No Hypercholesterolemia: No Kidney Stones: No Liver Disease: No Psychiatric Problems: Yes Seizures: No Thyroid Disease: No - Surgical History Abdominal Surgery: No Appendectomy: No Cardiac Surgery: No Cholecystectomy: No Lung Surgery: No Neurologic Surgery: No Orthopedic Surgery: No - Reproductive History Testicular Surgery: No - Immunization History Immunization Up to Date: Yes - Psycho-Social/Smoking History Smoking History: Never smoked Have you smoked in the past 12 months: No Number of Cigarettes Smoked Daily: 40 Cigars Per Day: 0 Information on smoking cessation initiated: No 'Breaking Loose' booklet given: 02/26/19 - Substance Abuse Hx (Audit-C & DAST Scrn) How often the patient has a drink containing alcohol: Monthly or less Score: In Men: 4 or > Positive; In Women: 3 or > Positive: 1 Screen Result (Pos requires Nsg. Audit-10AR): Negative <Codey Ling - Last Filed: 05/07/20 14:27> - Medical History Allergies/Adverse Reactions: Allergies Allergy/AdvReac Type Severity Reaction Status Date / Time No Known Allergies Allergy Verified 02/20/20 01:32 Home Medications: Ambulatory Orders Aspirin [ASA -] 325 mg PO DAILY 05/09/18 Paroxetine HCl [Paxil -] 10 mg PO DAILY #30 tablet 11/19/18 Quetiapine Fumarate [Seroquel -] 50 mg PO HS #30 tablet 06/25/19 Albuterol Sulfate Inhaler - [Ventolin HFA Inhaler -] 2 inh PO Q4H PRN #1 inhaler 03/01/20 Nicotine Polacrilex [Nicorette] 4 mg BC PRN #1 box 03/01/20 Azithromycin [Zithromax -] 250 mg PO UTDICT #6 tab 03/15/20 Famotidine [Pepcid] 20 mg PO BID #28 tablet 05/07/20 Mag Hydrox/Al Hydrox/Simeth [Mylanta Suspension -] 30 ml PO Q6H #1 bottle 05/07/20 Ondansetron HCl [Zofran] 4 mg PO Q8H #12 tablet 05/07/20 Sucralfate [Carafate -] 1 gm PO QID #28 tablet 05/07/20 Abd/GI Specific PMHX - Complaint Specific PMHX Hepatitis: Yes (Hep C treated) Pancreatitis: No <Codey Ling - Last Filed: 05/07/20 14:27> Review of Systems - Review of Systems Constitutional: No: Chills, Fever Respiratory: No: Shortness of Breath Cardiac (ROS): No: Chest Pain ABD/GI: Yes: Nausea, Vomiting, Abdominal cramping. No: Blood Streaked Bowels, Constipated, Diarrhea, Rectal Bleeding, Tarry Stools : No: Dysuria, Flank Pain, Hematuria Musculoskeletal: No: Back Pain <Codey Ling - Last Filed: 05/07/20 14:27> *Physical Exam - Vital Signs Last Vital Signs Temp Pulse Resp BP Pulse Ox 98.2 F 87 16 112/75 98 05/07/20 10:03 05/07/20 10:03 05/07/20 10:03 05/07/20 10:03 05/07/20 10:03 <Zayda Duval - Last Filed: 05/07/20 12:41> - Vital Signs Last Vital Signs Temp Pulse Resp BP Pulse Ox 98.2 F 87 16 112/75 98 05/07/20 10:03 05/07/20 10:03 05/07/20 10:03 05/07/20 10:03 05/07/20 10:03 - Physical Exam General Appearance: Yes: Appropriately Dressed. No: Apparent Distress HEENT: positive: Normal Voice Neck: positive: Supple Respiratory/Chest: positive: Lungs Clear, Normal Breath Sounds. negative: Respiratory Distress Cardiovascular: positive: Regular Rate, S1, S2 Gastrointestinal/Abdominal: positive: Normal Bowel Sounds, Tender (sig ttp to epigastrium), Soft. negative: Distended, Guarding, Rebound Musculoskeletal: negative: CVA Tenderness Integumentary: positive: Dry, Warm Neurologic: positive: Fully Oriented, Alert, Normal Mood/Affect <Codey Ling - Last Filed: 05/07/20 14:27> ED Treatment Course - LABORATORY CBC & Chemistry Diagram: 05/07/20 10:37 05/07/20 10:37 - ADDITIONAL ORDERS Additional order review: Laboratory Results 05/07/20 05/07/20 05/07/20 10:37 10:37 10:37 PT with INR 13.70 H INR 1.16 H PTT (Actin FS) 31.2 Sodium Potassium Chloride Carbon Dioxide Anion Gap BUN Creatinine Est GFR (CKD-EPI)AfAm Est GFR (CKD-EPI)NonAf Random Glucose Calcium Total Bilirubin AST ALT Alkaline Phosphatase Creatine Kinase Creatine Kinase Index CK-MB (CK-2) Troponin I Total Protein Albumin Lipase 57 L Urine Color Dk yellow Urine Appearance Clear Urine pH 5.5 Ur Specific [place] 1.019 Urine Protein Negative Urine Glucose (UA) Negative Urine Ketones Trace H Urine Blood Negative Urine Nitrite Negative Urine Bilirubin Negative Urine Urobilinogen 1.0 Ur Leukocyte Esterase 1+ H Urine WBC (Auto) 60 Urine RBC (Auto) 19 Urine Casts (Auto) 3 U Epithel Cells (Auto) 10 Urine Bacteria (Auto) 4 05/07/20 10:37 PT with INR INR PTT (Actin FS) Sodium 136 Potassium 4.0 Chloride 102 Carbon Dioxide 28 Anion Gap 6 L BUN 7.3 Creatinine 0.6 Est GFR (CKD-EPI)AfAm 132.11 Est GFR (CKD-EPI)NonAf 113.99 Random Glucose 85 Calcium 9.0 Total Bilirubin 0.7 AST 38 H ALT 23 Alkaline Phosphatase 91 Creatine Kinase 555 H Creatine Kinase Index 0.2 CK-MB (CK-2) 1.6 Troponin I < 0.02 Total Protein 7.8 Albumin 2.9 L Lipase Urine Color Urine Appearance Urine pH Ur Specific [place] Urine Protein Urine Glucose (UA) Urine Ketones Urine Blood Urine Nitrite Urine Bilirubin Urine Urobilinogen Ur Leukocyte Esterase Urine WBC (Auto) Urine RBC (Auto) Urine Casts (Auto) U Epithel Cells (Auto) Urine Bacteria (Auto) 05/07/20 10:37 RBC 3.98 L MCV 84.8 D MCHC 32.1 RDW 15.8 MPV 8.3 Neutrophils % 60.3 Lymphocytes % 27.2 Monocytes % 11.0 H Eosinophils % 0.6 Basophils % 0.9 D <Zayda Duval - Last Filed: 05/07/20 12:41> - LABORATORY CBC & Chemistry Diagram: 05/07/20 10:37 05/07/20 10:37 <Codey Ling - Last Filed: 05/07/20 14:27> Medical Decision Making - Medical Decision Making The patient was seen and evaluated in conjunction with midlevel provider under my direct supervision, ancillary studies were reviewed. I agree with the plan as outlined with_GISELLA Ling. HPI, workup/dispo as outlined. VS reviewed, wnl. anticipate discharge, pcp followup, return precautions 05/07/20 12:41 <Zayda Duval - Last Filed: 05/07/20 12:41> - Medical Decision Making 05/07/20 11:14 54 y/o male with pmhx of asthma, depression, anxiety, schizophrenia, PSTD, polysubstance abuse, chronic upper abd pain, sent from [facility] for worsening of his abd pain since yesterday per pt. +2 e/o non-bloody n/v. No change in BM, BRBPR, melena, f/c. Of note, pt has had multiple ER visits for same, on 04/03, CT done which showed thickened stomach w/ e/o "ulcer cavity" and possible extensive gastritis. There was also mild inflammation within mesenteric fat of pancreas, cannot r/o mild acute pancreatitis per report. see exam Chronic upper abd pain in pt w/ polysubstance abuse including ETOH w/ ?ulcer, extensive gastritis and ? mild pancreatitis on CT last month at [facility] Does not f/u with GI Stable here w/ sig ttp to epigastrium Labs ok GI cocktail and reassess Anticipate dc back to [facility] 05/07/20 12:06 05/07/20 14:24 Pt reports feeling better and able to alfredito po. Dr Braden Mccoy at [facility] called and given report. Pt to go back to detox w/ security <Codey Ling - Last Filed: 05/07/20 14:27> Discharge <Zayda Duval - Last Filed: 05/07/20 12:41> - Discharge Information Problems reviewed: Yes <Karol LingMary - Last Filed: 05/07/20 14:27> - Discharge Information Clinical Impression/Diagnosis: Chronic epigastric pain Condition: Improved Disposition: HOME - Additional Discharge Information Prescriptions: Sucralfate [Carafate -] 1 gm PO QID #28 tablet Mag Hydrox/Al Hydrox/Simeth [Mylanta Suspension -] 30 ml PO Q6H #1 bottle Famotidine [Pepcid] 20 mg PO BID #28 tablet Ondansetron HCl [Zofran] 4 mg PO Q8H #12 tablet - Follow up/Referral Referrals: Ubaldo Rosario NP [Primary Care Provider] - Lj Zamora MD [Staff Physician] - - Patient Discharge Instructions Patient Printed Discharge Instructions: Gastritis Additional Instructions: Pt symptoms most likely related to either ulcer vs gastritis vs mild pancreatitis seen on CT last month Pt improved w/ GI cocktail here Lans unimpressive Pt needs GI follow up and can see Dr Zamora Medications sent to [place] [facility]. To take as directed and refrain from ETOH - Post Discharge Activity
[2020-05-07 11:19] LABS: EPI CELLS 10 /uL (0-25.1); HYALINE CASTS 3 /uL (0-3.1); PH,URINE 5.5 (5.0-8.0); URINE APPEARANCE CLEAR; URINE BACTERIA 4 /uL (0-1359); URINE BILIRUBIN NEGATIVE (NEGATIVE); URINE COLOR DK YELLOW; URINE GLUCOSE (UA) NEGATIVE (NEGATIVE); URINE KETONE TRACE (NEGATIVE); URINE LEUK ESTERASE 1+ (NEGATIVE); URINE NITRITE NEGATIVE (NEGATIVE); URINE PROTEIN NEGATIVE (NEGATIVE); URINE RBC 19 /uL (0-23.9); URINE WBC 60 /uL (0-25.8)
[2020-05-07 11:25] LABS: INR 1.16 (0.83-1.09); PROTHROMBIN TIME (PATIENT) 13.7 SEC (9.7-13.0)
[2020-05-07 11:28] LABS: ACTIVATED PTT 31.2 SECONDS (25.2-36.5)
[2020-05-07 11:40] LABS: ALBUMIN 2.9 g/dl (3.4-5.0); ALK PHOS 91 U/L (45-117); ANION GAP 6 MMOL/L (8-16); BILIRUBIN,TOTAL 0.7 mg/dL (0.2-1); BLOOD UREA NITROGEN 7.3 mg/dL (7-18); CHLORIDE 102 mmol/L (98-107); CO2 28 mmol/L (21-32); CREATININE 0.6 mg/dL (0.55-1.3); GLUCOSE,RANDOM 85 mg/dL (74-106); SGOT/AST 38 U/L (15-37); SGPT/ALT 23 U/L (13-61); SODIUM 136 mmol/L (136-145); TOT PROT 7.8 g/dl (6.4-8.2)
[2020-05-07] MEDS ORDERED: FAMOTIDINE 20 MG/50 ML IVPB 20 MG/50 ML MG IVPB ONE ×2 (11:48→12:15)
[2020-05-07] MEDS ORDERED: MAG HYDROX/AL HYDROX/SIMETH 30 ML UNIT-DOSE CUP PO ONE (11:48)
[2020-05-07] MEDS ORDERED: ACETAMINOPHEN 1000 MG/100 ML VIAL (NON FORMULARY) IVPB ONE (11:49)
[2020-05-07] MEDS ORDERED: SUCRALFATE 1 GM TABLET (FP) PO ONE (11:50)
[2020-05-07] MEDS ORDERED: ONDANSETRON 4 MG/2 ML VIAL IVPUSH ONE (12:06)
[2020-05-07] MEDS ORDERED: SODIUM CHLORIDE 1,000 ML IV STA (12:08)
[2020-05-07] MEDS ORDERED: SUCRALFATE 1 GM TABLET (FP) ONE (12:14)
[2020-05-07] MEDS ORDERED: MAG HYDROX/AL HYDROX/SIMETH 30 ML UNIT-DOSE CUP ONE (12:15)
[2020-05-07] MEDS ORDERED: ACETAMINOPHEN INJECTION 100 ML IVPB ONE (12:15)
[2020-05-07 14:47] VITALS: BP 103/70; PULSE 84; TEMP 98.4
--- NOTE | 2020-05-09 17:37 | EKG ---
Test Reason : Blood Pressure : / mmHG Vent. Rate : 071 BPM Atrial Rate : 071 BPM P-R Int : 166 ms QRS Dur : 084 ms QT Int : 420 ms P-R-T Axes : 076 069 066 degrees QTc Int : 456 ms NORMAL SINUS RHYTHM NORMAL ECG WHEN COMPARED WITH ECG OF 20-FEB-2020 03:00, NO SIGNIFICANT CHANGE WAS FOUND Confirmed by MD Hicks Edward ([id number]) on 05/09/2020 5:37:22 PM Referred By: Confirmed By:Jayson Hicks MD
== END 2020-05-07 14:38 | disposition home or self-care (01) ==
LOC: JER 09:50
PROC: 3E0333Z Introduction of Anti-inflammatory into Peripheral Vein, Percutaneous Approach (ICD-10-PCS; principal; 2020-05-07)
PROC: 3E033GC Introduction of Other Therapeutic Substance into Peripheral Vein, Percutaneous Approach (ICD-10-PCS; 2020-05-07)
PROC: 3E0337Z Introduction of Electrolytic and Water Balance Substance into Peripheral Vein, Percutaneous Approach (ICD-10-PCS; 2020-05-07)
DX: R10.13 Epigastric pain (principal)
CPT/HCPCS: 36415; 80053; 81003; 82550; 82553; 83690; 84484; 85025; 85610; 85730; 87086; 93005; 93010; 99284-25; J0131

== ENCOUNTER 2020-07-07 01:44 | Emergency (ER) | payer OTHER ==
[2020-07-07] MEDS ORDERED: FAMOTIDINE 20 MG/50 ML IVPB 20 MG/50 ML MG IVPB ONE ×2 (02:09→02:40)
[2020-07-07] MEDS ORDERED: MAG HYDROX/AL HYDROX/SIMETH 30 ML UNIT-DOSE CUP PO ONE (02:09)
[2020-07-07] MEDS ORDERED: LIDOCAINE VISCOUS 2% ORAL/TOP 20 ML UNIT-DOSE CUP MM ONE (02:09)
--- NOTE | 2020-07-07 02:13 | PDOC ---
Attending Attestation - Resident Resident Name: Fiona Madrigal - ED Attending Attestation I have performed the following: I have examined & evaluated the patient, The case was reviewed & discussed with the resident, I agree w/resident's findings & plan - HPI HPI: 07/07/20 06:10 see resident hpi - Physicial Exam PE: 07/07/20 06:10 see resident exam - Medical Decision Making 07/07/20 06:21 55-year-old male with epigastric pain status post recent endoscopic procedure at [facility] with unknown results and an episode of darker than normal stool CT scan of the abdomen and pelvis shows enlarged gastric wall with enlarged surrounding lymph nodes, malignancy difficult to exclude Patient has persistent right upper quadrant tenderness on reexam after antacids We will plan for right upper quadrant ultrasound, signed out to dayshift with likely DC home and prompt GI follow-up pending these results. Discharge - Discharge Information Problems reviewed: Yes Clinical Impression/Diagnosis: Upper abdominal pain, Dark stools Condition: Stable - Follow up/Referral - Patient Discharge Instructions - Post Discharge Activity
[2020-07-07] MEDS ORDERED: PANTOPRAZOLE SODIUM 40 MG VIAL IVPUSH ONE (02:20)
--- NOTE | 2020-07-07 02:24 | PDOC ---
History of Present Illness - General Chief Complaint: Pain, Acute Stated Complaint: ABD PAIN Time Seen by Provider: 07/07/20 02:05 History Source: Patient Exam Limitations: No Limitations - History of Present Illness Initial Comments: Pt is a 55 yo M, with PMH of gastritis, anxiety, schizophrenia, PTSD, asthma, Hep B/C, and polysubstance use (prior heroin, cocaine, THC, nicotine), who is presenting via EMS from home with complaints of upper and RUQ abdominal pain x3 days. Pt states the pain is intermittent, but denies any exacerbating or alleviating factors. He cannot describe the quality of the pain, but it is associated with 1 episode of NBNB vomiting and "black stool, really dark" since this morning. Pt states he has been taking "some medicine for my stomach" and had "a camera down my mouth" about 2 weeks ago at [facility]. Pt denies any fevers/chills, headache, vision changes, syncope, chest pain, palpitations, SOB, urinary symptoms, diarrhea, or leg swelling. Allergies: NKDA PCP: [facility] Social: Pt smokes ~1 ppd/cigarettes. Pt "hasn't drank alcohol in a long time" and denies any active illicit drug use. Pt denies any recent travel or sick contacts. Surgical: no relevant history. Family: no relevant history. 07/07/20 02:24 07/07/20 02:33 Past History - Travel History Traveled outside of the country in the last 30 days: No Close contact w/someone who was outside of country & ill: No - Medical History Allergies/Adverse Reactions: Allergies Allergy/AdvReac Type Severity Reaction Status Date / Time No Known Allergies Allergy Verified 07/07/20 02:00 Home Medications: Ambulatory Orders Aspirin [ASA -] 325 mg PO DAILY 05/09/18 Albuterol Sulfate Inhaler - [Ventolin HFA Inhaler -] 2 inh PO Q4H PRN #1 inhaler 03/01/20 Nicotine Polacrilex [Nicorette] 4 mg BC PRN #1 box 03/01/20 Famotidine [Pepcid] 20 mg PO BID #28 tablet 05/07/20 Mag Hydrox/Al Hydrox/Simeth [Mylanta Suspension -] 30 ml PO Q6H #1 bottle 07/24/20 Sucralfate [Carafate -] 1 gm PO QID #28 tablet 05/07/20 Paroxetine HCl [Paxil -] 10 mg PO DAILY #30 tablet 05/14/20 Quetiapine Fumarate [Seroquel -] 50 mg PO HS #30 tablet 05/14/20 Anemia: Yes (not on any supplement) Asthma: Yes Cancer: No Cardiac Disorders: No CVA: No COPD: No CHF: No Dementia: No Diabetes: No GI Disorders: No Disorders: No HTN: No Hypercholesterolemia: No Kidney Stones: No Liver Disease: No Psychiatric Problems: Yes Seizures: No Thyroid Disease: No - Surgical History Abdominal Surgery: No Appendectomy: No Cardiac Surgery: No Cholecystectomy: No Lung Surgery: No Neurologic Surgery: No Orthopedic Surgery: No - Reproductive History Testicular Surgery: No - Immunization History Immunization Up to Date: Yes - Psycho-Social/Smoking History Smoking History: Never smoked Have you smoked in the past 12 months: Yes Number of Cigarettes Smoked Daily: 20 Cigars Per Day: 0 Information on smoking cessation initiated: No 'Breaking Loose' booklet given: 02/26/19 - Substance Abuse Hx (Audit-C & DAST Scrn) How often the patient has a drink containing alcohol: Never Score: In Men: 4 or > Positive; In Women: 3 or > Positive: 0 Screen Result (Pos requires Nsg. Audit-10AR): Negative In the last yr the pt used illegal drug/Rx for NonMed reason: No Score: Yes response is considered Positive: 0 Screen Result (Positive result requires Nsg. DAST-10): Negative Abd/GI Specific PMHX - Complaint Specific PMHX Diverticulitis: No Gall Bladder Disease: No GERD: Yes Hepatitis: Yes (Hep C treated) Pancreatitis: No GI Ulcer Disease: Yes Review of Systems - Review of Systems Able to Perform ROS?: Yes Is the patient limited Indonesian proficient: No Constitutional: Yes: Loss of Appetite, Weight Stable. No: Diaphoresis, Malaise, Night Sweats, Weakness HEENTM: No: Recent change in vision, Nose Congestion, Throat Pain, Throat Swelling, Difficulty Swallowing Respiratory: No: Cough, Orthopnea, Shortness of Breath Cardiac (ROS): No: Chest Pain, Edema, Irregular Heart Rate, Lightheadedness, Palpitations, Syncope, Chest Tightness ABD/GI: Yes: See HPI, Constipated, Poor Appetite, Vomiting, Abdominal cramping, Tarry Stools. No: Abdominal Distended, Blood Streaked Bowels, Diarrhea, Difficulty Swallowing, Nausea, Poor Fluid Intake, Rectal Bleeding, Indigestion : No: Burning, Dysuria, Frequency, Hematuria, Pain, Urgency Musculoskeletal: No: Back Pain, Muscle Pain Integumentary: No: Rash Neurological: No: Headache, Numbness, Weakness, Unsteady Gait, Dizziness Psychiatric: No: Sleep Pattern Change, Change in Appetite Endocrine: No: Increased Urine, Change in Weight Hematologic/Lymphatic: No: Anemia, Blood Clots, Easy Bleeding, Easy Bruising All Other Systems: Reviewed and Negative *Physical Exam - Vital Signs Last Vital Signs Temp Pulse Resp BP Pulse Ox 97.8 F 61 20 138/97 100 07/07/20 01:45 07/07/20 01:45 07/07/20 01:45 07/07/20 01:45 07/07/20 01:45 - Physical Exam Vitals stable, pt afebrile. Pt holding upper abdomen, but not toxic appearing or in distress. Normal body habitus. Pt alert and oriented x3. high lift operator generally intact, muscular strength and sensation intact. No midline spinal tenderness, step-offs, or crepitus. Head normocephalic, atraumatic. Eyes PERRLA, EOMI. Oropharynx without erythema or exudates, no LAD b/l. No nasal congestion. Hearing intact. Clear heart sounds, S1/S2, no JVD, b/l pedal edema, or heart murmur. Clear lung sounds, no respiratory distress, wheezes, crackles, or accessory muscle use. Epigastric and RUQ abdominal TTP, with no rebound, no guarding. Abdomen soft, non-distended, and with normoactive bowel sounds. No notable external hemorrhoids. Stool dark brown, not tarry. Skin without jaundice or rash. 07/07/20 02:36 07/07/20 05:55 ED Treatment Course - LABORATORY CBC & Chemistry Diagram: 07/07/20 02:22 07/07/20 02:22 - RADIOLOGY Radiology Studies Ordered: Category Date Time Status CHEST X-RAY PORTABLE* [RAD] Stat Radiology 07/07/20 02:09 Ordered Medical Decision Making - Medical Decision Making Pt was seen at bedside, also will be seen by attending Dr. Omer. Pt presenting with upper/RUQ abdominal pain and recent dark stools, possibly 2/2 UGIB, pancreatitis, cholelithiasis/cholecysitis. Pt afebrile, no significant guarding, abdomen is soft. Less likely upper abdominal infection/cholangitis or gastric perforation. Provided maalox, viscous lidocaine, 40 mg IV protonix for improvement of possible GIB, upper abdominal pain. Will continue to reassess pt and monitor for symptomatic improvement. NPO while in ED (except meds) until acute abdominal process excluded ECG: Sinus bradycardia, prolonged QT (HR 57, NE 168, QRS 86, QTc 480). Biphasic Twaves in V2-V3. No significant changes from prior ECG (04/2020). Will hold pepcid 2/2 prolonged QTc (pt on seroquel and pepcid) 07/07/20 02:39 H/H stable from pts baseline, no need for transfusion at this time. 07/07/20 02:42 CMP generally WNL. No significant elevation of LFTs, tbili, or lipase K 3.4, providing 40 mg KCl PO 07/07/20 03:10 Stool for occult blood positive CT abd/pelvis with gastric thickening and richard-gastric LN enlargement, possibly neoplastic process Pt with pain improved, has been resting. Dispo after RUQ US in the morning. 07/07/20 04:38 07/07/20 05:55 Pt signed out to day team attending. 07/07/20 06:24 Discharge - Discharge Information Problems reviewed: Yes Clinical Impression/Diagnosis: Upper abdominal pain, Dark stools Gastritis Qualifiers: Gastritis type: unspecified gastritis Chronicity: chronic Gastritis bleeding: with bleeding Qualified Code(s): K29.51 - Unspecified chronic gastritis with bleeding Condition: Improved Disposition: HOME - Admission No - Follow up/Referral Referrals: Hanna Vegas DO [Staff Physician] - - Patient Discharge Instructions Patient Printed Discharge Instructions: DI for Gastritis Additional Instructions: You were seen in the ER today for upper abdominal pain. The results of your labs and imaging today showed inflammation of the lining of your stomach, with enlarged lymph nodes which could be inflammation or a mass. Please follow-up with your primary care doctor and GI (Dr. Vegas) within 1-2 days to discuss your visit and make sure your symptoms have improved. Please return to the ER if you have any worsening pain, development of fevers or chills, loss of consciousness, inability to tolerate food or fluids, or any other concerns. - Post Discharge Activity
[2020-07-07 02:29] VITALS: BMI 23.1
[2020-07-07 02:31] LABS: BASO % 1.1 % (0-2.0); EOS % 1.9 % (0-4.5); HEMATOCRIT 34.3 % (35.4-49); HEMOGLOBIN 11.2 GM/dL (11.7-16.9); LYMPH % 33.6 % (8-40); MCH 26.2 pg (25.7-33.7); MCHC 32.6 g/dl (32.0-35.9); MEAN CELL VOLUME 80.5 fl (80-96); MEAN PLT VOLUME 8.4 fl (7.5-11.1); NEUT % 51.4 % (42.8-82.8); PLATELET COUNT 307 K/MM3 (134-434); RBC 4.26 M/mm3 (4.00-5.60); RDW 19.3 % (11.9-15.9); WHITE BLOOD COUNT 6.8 K/mm3 (4.0-10.0)
[2020-07-07 02:38] LABS: INR 1.18 (0.83-1.09); PROTHROMBIN TIME (PATIENT) 13.9 SEC (9.7-13.0)
[2020-07-07] MEDS ORDERED: LIDOCAINE VISCOUS 2% ORAL/TOP 20 ML UNIT-DOSE CUP ONE (02:39)
[2020-07-07 02:40] LABS: ACTIVATED PTT 32.5 SECONDS (25.2-36.5)
[2020-07-07] MEDS ORDERED: MAG HYDROX/AL HYDROX/SIMETH 30 ML UNIT-DOSE CUP ONE (02:40)
[2020-07-07] MEDS ORDERED: PANTOPRAZOLE SODIUM 40 MG VIAL ONE (02:52)
[2020-07-07 02:58] LABS: ALK PHOS 99 U/L (45-117); BLOOD UREA NITROGEN 3.6 mg/dL (7-18); CALCIUM 8.4 mg/dL (8.5-10.1); CO2 31 mmol/L (21-32); CREATININE 0.6 mg/dL (0.55-1.3); GLUCOSE,RANDOM 105 mg/dL (74-106); LIPASE 60 U/L (73-393); POTASSIUM 3.4 mmol/L (3.5-5.1); SGOT/AST 22 U/L (15-37); SGPT/ALT 19 U/L (13-61); SODIUM 139 mmol/L (136-145); TOT PROT 7.8 g/dl (6.4-8.2)
[2020-07-07 03:03] LABS: ANION GAP 5 MMOL/L (8-16); BILIRUBIN,TOTAL 0.3 mg/dL (0.2-1); CHLORIDE 103 mmol/L (98-107)
[2020-07-07] MEDS ORDERED: POTASSIUM CHLORIDE TABS 20 MEQ TABLET.ER (FP) PO ONE ×2 (03:08→04:36)
[2020-07-07 06:17] VITALS: BP 131/89; PULSE 52; TEMP 98.1
--- NOTE | 2020-07-07 07:48 | PDOC ---
*Physical Exam - Vital Signs Last Vital Signs Temp Pulse Resp BP Pulse Ox 98.1 F 52 L 18 131/89 100 07/07/20 06:15 07/07/20 06:15 07/07/20 06:15 07/07/20 06:15 07/07/20 06:15 ED Treatment Course - LABORATORY CBC & Chemistry Diagram: 07/07/20 02:22 07/07/20 02:22 - ADDITIONAL ORDERS Additional order review: Laboratory Results 07/07/20 07/07/20 07/07/20 05:40 02:22 02:22 PT with INR INR PTT (Actin FS) Sodium Potassium Chloride Carbon Dioxide Anion Gap BUN Creatinine Est GFR (CKD-EPI)AfAm Est GFR (CKD-EPI)NonAf Random Glucose Lactic Acid 1.0 Calcium Total Bilirubin AST ALT Alkaline Phosphatase Creatine Kinase Troponin I Total Protein Albumin Lipase Stool Occult Blood Positive Blood Type O POSITIVE Antibody Screen Negative 07/07/20 07/07/20 02:22 02:22 PT with INR 13.90 H INR 1.18 H PTT (Actin FS) 32.5 Sodium 139 Potassium 3.4 L Chloride 103 Carbon Dioxide 31 Anion Gap 5 L BUN 3.6 L Creatinine 0.6 Est GFR (CKD-EPI)AfAm 131.19 Est GFR (CKD-EPI)NonAf 113.19 Random Glucose 105 Lactic Acid Calcium 8.4 L Total Bilirubin 0.3 AST 22 ALT 19 Alkaline Phosphatase 99 Creatine Kinase 53 Troponin I < 0.02 Total Protein 7.8 Albumin 3.0 L Lipase 60 L Stool Occult Blood Blood Type Antibody Screen 07/07/20 02:22 RBC 4.26 MCV 80.5 MCHC 32.6 RDW 19.3 H MPV 8.4 Neutrophils % 51.4 Lymphocytes % 33.6 D Monocytes % 12.0 H Eosinophils % 1.9 D Basophils % 1.1 - Medications Given in the ED: ED Medications Discontinued Medications Generic Name Dose Route Start Last Admin Trade Name Freq PRN Reason Stop Dose Admin Al Hydroxide/Mg Hydroxide 30 ml 07/07/20 02:09 07/07/20 02:59 Mylanta Oral Suspension - PO 07/07/20 02:10 30 ml ONCE ONE Administration Famotidine/Sodium Chloride 20 mg in 50 mls @ 100 mls/hr 07/07/20 02:09 07/07/20 03:06 Pepcid 20 Mg Premixed Ivpb - IVPB 07/07/20 02:38 Not Given ONCE ONE Lidocaine HCl 20 ml 07/07/20 02:09 07/07/20 02:58 Xylocaine 2% Viscous Oral - MM 07/07/20 02:10 20 ml ONCE ONE Administration Pantoprazole Sodium 40 mg 07/07/20 02:20 07/07/20 02:58 Protonix Iv IVPUSH 07/07/20 02:21 40 mg ONCE ONE Administration Potassium Chloride 40 meq 07/07/20 03:08 07/07/20 04:30 K-Dur - PO 07/07/20 03:09 40 meq ONCE ONE Administration Medical Decision Making - Medical Decision Making 07/07/20 07:43 Vital Signs Temp Pulse Resp BP Pulse Ox 98.1 F 52 L 18 131/89 100 07/07/20 06:15 07/07/20 06:15 07/07/20 06:15 07/07/20 06:15 07/07/20 06:15 Patient was signed out at [address] Omer, pending reevaluation -In summary this is a 55-year-old male with recent endoscopy about 2 weeks ago, presenting with abdominal pain x3 days Imaging loss prevention auditor overnight reveals possible mild gastritis and enlarged perigastric lymph nodes, told to follow-up with his insolvency practitioner (no. Laboratory results are reviewed within normal limits Bedside focus gallbladder done negative for gallstones or evidence of cholecystitis pain improved recommended maalox/mylanta prn for heartburn, with food. also protonix for H2 blockade supportive care, avoid triggers. hydration keep food diary. Pt to be discharged in stable condition. Patient made aware of clinical impression, treatment recommendations and disposition plan, return precautions discussed (including but not limited to new or persistent/worsening symptoms, pain, fevers, or signs of infection, chest pain, respiratory distress, inability to tolerate oral intake, dehydration, syncope, or neurologic changes). Follow up with PMD and/or specialist as recommended, follow up information provided, take medications as instructed for duration of time. continue with supportive care, avoid triggers and precipitants. All questions answered to patient's satisfaction and expressed understanding and comfort with this. At the time of discharge, the patient is alert, clinically improved, tolerating po and verbalizes understanding of instructions, satisfied with the care received and felt comfortable with the plan. Patient does not suffer from an acute life- threatening medical condition at this time and is safe for outpatient follow- up. Discharge - Discharge Information Problems reviewed: Yes Clinical Impression/Diagnosis: Upper abdominal pain, Dark stools Gastritis Qualifiers: Gastritis type: unspecified gastritis Chronicity: chronic Gastritis bleeding: with bleeding Qualified Code(s): K29.51 - Unspecified chronic gastritis with bleeding Condition: Improved Disposition: HOME - Admission No - Additional Discharge Information Prescriptions: Mag Hydrox/Al Hydrox/Simeth [Mylanta Suspension -] 30 ml PO Q6H PRN #1 bottle PRN Reason: heartburn Pantoprazole Sodium [Protonix -] 20 mg PO DAILY #14 tablet.ec - Follow up/Referral Referrals: Hanna Vegas DO [Staff Physician] - - Patient Discharge Instructions Patient Printed Discharge Instructions: DI for Gastritis, GERD Diet, Gastroesophageal Reflux Disease (Alternative Therapy) Additional Instructions: You were seen in the ER today for upper abdominal pain. The results of your labs and imaging today showed inflammation of the lining of your stomach, with enlarged lymph nodes which could be inflammation or a mass. Please follow-up with your primary care doctor and GI (Dr. Vegas) within 1-2 days to discuss your visit and make sure your symptoms have improved. take maalox or mylanta as needed every 6 hours for heartburn symptoms, take with food. also you can take protonix daily to help block the acid production stay hydrated avoid food triggers, keep a food diary Please return to the ER if you have any worsening pain, development of fevers or chills, loss of consciousness, inability to tolerate food or fluids, or any oth er concerns. - Post Discharge Activity
--- NOTE | 2020-07-07 09:58 | EKG ---
Test Reason : Blood Pressure : / mmHG Vent. Rate : 057 BPM Atrial Rate : 057 BPM P-R Int : 168 ms QRS Dur : 086 ms QT Int : 494 ms P-R-T Axes : 034 075 071 degrees QTc Int : 480 ms SINUS BRADYCARDIA PROLONGED QT ABNORMAL ECG WHEN COMPARED WITH ECG OF 07-MAY-2020 09:59, NO SIGNIFICANT CHANGE WAS FOUND Confirmed by Dany Galindo ([id number]) on 07/07/2020 9:58:13 AM Referred By: Confirmed By:Dany Galindo
== END 2020-07-07 08:08 | disposition home or self-care (01) ==
LOC: JER 01:44
PROC: 3E033NZ Introduction of Analgesics, Hypnotics, Sedatives into Peripheral Vein, Percutaneous Approach (ICD-10-PCS; principal; 2020-07-07)
PROC: 3E033GC Introduction of Other Therapeutic Substance into Peripheral Vein, Percutaneous Approach (ICD-10-PCS; 2020-07-07)
DX: K29.51 Unspecified chronic gastritis with bleeding (principal); R10.10 Upper abdominal pain, unspecified
CPT/HCPCS: 36415; 71045-TC-FY; 74177-TC; 76705-TC; 80053; 82272; 82550; 83605; 83690; 84484; 85025; 85610; 85730; 86850; 86900; 86901; 93005; 93010; 99285-25

== ENCOUNTER 2020-11-18 09:54 | Inpatient (IN) | payer OTHER ==
[2020-11-18 10:09] VITALS: BMI 26.4
[2020-11-18] MEDS ORDERED: PANTOPRAZOLE SODIUM 40 MG VIAL IVPUSH ONE (10:55)
[2020-11-18] MEDS ORDERED: ACETAMINOPHEN 1000 MG/100 ML VIAL (NON FORMULARY) IVPB ONE (10:55)
[2020-11-18] MEDS ORDERED: SODIUM CHLORIDE 0.9% 500 ML INFUS.BAG IV ONE (10:55)
[2020-11-18] MEDS ORDERED: ACETAMINOPHEN INJECTION 100 ML IVPB ONE (11:11)
[2020-11-18] MEDS ORDERED: PANTOPRAZOLE SODIUM 40 MG VIAL ONE (11:12)
[2020-11-18 11:33] LABS: BASO % 0.2 % (0-2.0); EOS % 0.3 % (0-4.5); HEMATOCRIT 29.7 % (35.4-49); HEMOGLOBIN 8.9 GM/dL (11.7-16.9); LYMPH % 30.5 % (8-40); MCH 20.4 pg (25.7-33.7); MCHC 30.1 g/dl (32.0-35.9); MEAN CELL VOLUME 67.8 fl (80-96); MEAN PLT VOLUME 7.9 fl (7.5-11.1); MONO % 8.9 % (3.8-10.2); NEUT % 60.1 % (42.8-82.8); PLATELET COUNT 344 K/MM3 (134-434); RBC 4.38 M/mm3 (4.00-5.60); RDW 21.7 % (11.9-15.9); WHITE BLOOD COUNT 7.8 K/mm3 (4.0-10.0)
[2020-11-18 11:35] LABS: EPI CELLS 3 /uL (0-25.1); HYALINE CASTS 4 /uL (0-3.1); URINE APPEARANCE CLEAR; URINE BACTERIA >9,000 /uL (0-1359); URINE BILIRUBIN NEGATIVE (NEGATIVE); URINE COLOR YELLOW; URINE GLUCOSE (UA) NEGATIVE (NEGATIVE); URINE KETONE TRACE (NEGATIVE); URINE LEUK ESTERASE 2+ (NEGATIVE); URINE NITRITE POSITIVE (NEGATIVE); URINE PROTEIN NEGATIVE (NEGATIVE); URINE RBC 6 /uL (0-23.9); URINE WBC 233 /uL (0-25.8)
[2020-11-18 11:38] LABS: INR 1.21 (0.83-1.09); PROTHROMBIN TIME (PATIENT) 14.6 SEC (9.7-13.0)
[2020-11-18 11:41] LABS: ACTIVATED PTT 34.1 SECONDS (25.2-36.5)
[2020-11-18 11:46] LABS: CHLORIDE 104 mmol/L (98-107); POTASSIUM 4.1 mmol/L (3.5-5.1); SODIUM 140 mmol/L (136-145)
[2020-11-18 11:51] LABS: CALCIUM 8.9 mg/dL (8.5-10.1)
[2020-11-18 11:52] LABS: ALBUMIN 2.8 g/dl (3.4-5.0); ANION GAP 6 MMOL/L (8-16); BLOOD UREA NITROGEN 5.4 mg/dL (7-18); CO2 30 mmol/L (21-32); GLUCOSE,RANDOM 99 mg/dL (74-106)
[2020-11-18 11:53] LABS: LIPASE 51 U/L (73-393)
[2020-11-18 11:55] LABS: CREATININE 0.6 mg/dL (0.55-1.3); SGOT/AST 24 U/L (15-37); SGPT/ALT 17 U/L (13-61)
[2020-11-18 11:57] LABS: BILIRUBIN,TOTAL 0.6 mg/dL (0.2-1); TOT PROT 8.4 g/dl (6.4-8.2)
[2020-11-18 11:58] LABS: ALK PHOS 120 U/L (45-117)
[2020-11-18] MEDS ORDERED: CEFTRIAXONE 1,000 MG in DEXTROSE 5%-WATER - 50 ML IVPB ONE (11:59)
[2020-11-18] MEDS ORDERED: CEFTRIAXONE 1 GM/50 ML BAG ONE (12:10)
[2020-11-18 13:29] LABS: ANISOCYTOSIS 1+; MACROCYTOSIS 0; PLATELET ESTIMATE NORMAL; TARGET CELLS 2+
[2020-11-18] MEDS: SODIUM CHLORIDE 1,000 ML IV SCH ×2 (15:00→23:35)
[2020-11-18] MEDS ORDERED: MAG HYDROX/AL HYDROX/SIMETH -MYLANTA- ORAL SUSPENSION PO PRN (18:10)
[2020-11-18] MEDS ORDERED: MAG HYDROX/AL HYDROX/SIMETH 30 ML UNIT-DOSE CUP PO PRN (18:16)
[2020-11-18] MEDS ORDERED: FAMOTIDINE 20 MG TABLET PO SCH (22:00)
[2020-11-18] MEDS ORDERED: PANTOPRAZOLE SODIUM 40 MG VIAL IVPUSH SCH (22:00)
[2020-11-18] MEDS: PANTOPRAZOLE SODIUM 80 MG in SODIUM CHLORIDE 100 ML IVPB SCH (22:36)
[2020-11-18] MEDS: QUEtiapine FUMARATE 50 MG TABLET PO SCH (22:37)
[2020-11-18] MEDS: SUCRALFATE 1 GM TABLET (FP) PO SCH (22:38)
[2020-11-19] MEDS: PANTOPRAZOLE SODIUM 80 MG in SODIUM CHLORIDE 100 ML IVPB SCH (06:26)
[2020-11-19] MEDS: SUCRALFATE 1 GM TABLET (FP) PO SCH ×4 (08:00→21:44)
[2020-11-19 08:22] LABS: BASO % 0.3 % (0-2.0); EOS % 2.2 % (0-4.5); HEMATOCRIT 29.5 % (35.4-49); HEMOGLOBIN 8.8 GM/dL (11.7-16.9); LYMPH % 51.4 % (8-40); MCH 20.4 pg (25.7-33.7); MCHC 29.9 g/dl (32.0-35.9); MEAN PLT VOLUME 8.8 fl (7.5-11.1); MONO % 10.7 % (3.8-10.2); NEUT % 35.4 % (42.8-82.8); PLATELET COUNT 323 K/MM3 (134-434); RBC 4.34 M/mm3 (4.00-5.60); RDW 22.2 % (11.9-15.9); WHITE BLOOD COUNT 7.2 K/mm3 (4.0-10.0)
[2020-11-19 08:40] LABS: POTASSIUM 3.7 mmol/L (3.5-5.1)
[2020-11-19 08:44] LABS: ALBUMIN 2.4 g/dl (3.4-5.0); BLOOD UREA NITROGEN 5.5 mg/dL (7-18); CALCIUM 8.4 mg/dL (8.5-10.1); MAGNESIUM 1.9 mg/dL (1.8-2.4)
[2020-11-19 08:47] LABS: CREATININE 0.6 mg/dL (0.55-1.3); PHOSPHOROUS 3.5 mg/dL (2.5-4.9)
[2020-11-19 08:48] LABS: BILIRUBIN,TOTAL 0.5 mg/dL (0.2-1); TOT PROT 7.3 g/dl (6.4-8.2)
[2020-11-19] MEDS ORDERED: EPINEPHrine 1:10,000 (P-F SYR) 1 MG/10 ML DISP.SYRIN ONE (09:34)
[2020-11-19] MEDS ORDERED: cefTRIAXone SODIUM 1 GM VIAL ONE (12:36)
[2020-11-19] MEDS ORDERED: DEXTROSE 5%-WATER - 50 ML IVPB ONE (12:37)
[2020-11-19] MEDS: PANTOPRAZOLE 40 MG TABLET PO SCH (13:37)
[2020-11-19] MEDS: PARoxetine HCL 10 MG TABLET PO SCH (13:38)
[2020-11-19] MEDS: CEFTRIAXONE 1 GM in DEXTROSE 5%-WATER - 50 ML IVPB SCH (13:38)
[2020-11-19] MEDS: SODIUM CHLORIDE 1,000 ML IV SCH (13:57)
[2020-11-19] MEDS: IRON SUCROSE INJECTION 200 MG in SODIUM CHLORIDE 90 ML IVPB SCH (20:03)
[2020-11-19] MEDS ORDERED: PT OWN MED DRAWER 7, Y5N ONE (21:00)
[2020-11-19] MEDS: QUEtiapine FUMARATE 50 MG TABLET PO SCH (21:44)
[2020-11-20] MEDS ORDERED: CYCLOBENZAPRINE HCL 10 MG TABLET (FP) PO ONE (06:33)
[2020-11-20] MEDS ORDERED: PT OWN MED DRAWER 7, Y5N ONE ×2 (06:44→21:16)
[2020-11-20] MEDS: SUCRALFATE 1 GM TABLET (FP) PO SCH ×4 (06:46→21:46)
[2020-11-20] MEDS: SODIUM CHLORIDE 1,000 ML IV SCH (07:44)
[2020-11-20] MEDS ORDERED: ACETAMINOPHEN 1000 MG/100 ML VIAL (NON FORMULARY) IVPB ONE (08:45)
[2020-11-20] MEDS ORDERED: cefTRIAXone SODIUM 1 GM VIAL ONE (09:30)
[2020-11-20] MEDS ORDERED: DEXTROSE 5%-WATER - 50 ML IVPB ONE (09:31)
[2020-11-20] MEDS: PANTOPRAZOLE 40 MG TABLET PO SCH (10:02)
[2020-11-20] MEDS: CEFTRIAXONE 1 GM in DEXTROSE 5%-WATER - 50 ML IVPB SCH (10:02)
[2020-11-20] MEDS: PARoxetine HCL 10 MG TABLET PO SCH (11:36)
[2020-11-20] MEDS: IRON SUCROSE INJECTION 200 MG in SODIUM CHLORIDE 90 ML IVPB SCH (17:10)
[2020-11-20] MEDS: QUEtiapine FUMARATE 50 MG TABLET PO SCH (21:46)
[2020-11-21] MEDS: SUCRALFATE 1 GM TABLET (FP) PO SCH ×4 (06:16→22:04)
[2020-11-21] MEDS ORDERED: cefTRIAXone SODIUM 1 GM VIAL ONE (10:06)
[2020-11-21] MEDS ORDERED: DEXTROSE 5%-WATER - 50 ML IVPB ONE (10:06)
[2020-11-21] MEDS: CEFTRIAXONE 1 GM in DEXTROSE 5%-WATER - 50 ML IVPB SCH (10:12)
[2020-11-21] MEDS: PARoxetine HCL 10 MG TABLET PO SCH (10:13)
[2020-11-21] MEDS: PANTOPRAZOLE 40 MG TABLET PO SCH (10:13)
[2020-11-21] MEDS: SODIUM CHLORIDE 1,000 ML IV SCH (10:14)
[2020-11-21] MEDS ORDERED: BISACODYL 5 MG TABLET.DR (FP) PO ONE (16:00)
[2020-11-21] MEDS: IRON SUCROSE INJECTION 200 MG in SODIUM CHLORIDE 90 ML IVPB SCH (16:27)
[2020-11-21 16:45] LABS: HEMATOCRIT 30.2 % (35.4-49); HEMOGLOBIN 9.1 GM/dL (11.7-16.9); MCH 20.6 pg (25.7-33.7); MEAN CELL VOLUME 68.8 fl (80-96); MEAN PLT VOLUME 8.7 fl (7.5-11.1); PLATELET COUNT 348 K/MM3 (134-434)
[2020-11-21 17:00] LABS: POTASSIUM 3.8 mmol/L (3.5-5.1)
[2020-11-21] MEDS ORDERED: PEG 3350/NA SULF BICARB CL/KCL 4000 ML SOLN.RECON PO ONE (17:00)
[2020-11-21 17:02] LABS: ALBUMIN 2.3 g/dl (3.4-5.0); CALCIUM 8.6 mg/dL (8.5-10.1)
[2020-11-21 17:03] LABS: BLOOD UREA NITROGEN 4.4 mg/dL (7-18)
[2020-11-21 17:06] LABS: CREATININE 0.6 mg/dL (0.55-1.3); PHOSPHOROUS 3.4 mg/dL (2.5-4.9)
[2020-11-21 17:07] LABS: BILIRUBIN,TOTAL 0.2 mg/dL (0.2-1); TOT PROT 7.2 g/dl (6.4-8.2)
[2020-11-21] MEDS ORDERED: PT OWN MED DRAWER 7, Y5N ONE (20:47)
[2020-11-21] MEDS: QUEtiapine FUMARATE 50 MG TABLET PO SCH (22:04)
[2020-11-22] MEDS: SUCRALFATE 1 GM TABLET (FP) PO SCH (06:16)
[2020-11-22] MEDS ORDERED: cefTRIAXone SODIUM 1 GM VIAL ONE (09:26)
[2020-11-22] MEDS ORDERED: DEXTROSE 5%-WATER - 50 ML IVPB ONE (09:26)
[2020-11-22] MEDS: PARoxetine HCL 10 MG TABLET PO SCH (09:32)
[2020-11-22] MEDS: PANTOPRAZOLE 40 MG TABLET PO SCH (09:32)
[2020-11-22] MEDS: CEFTRIAXONE 1 GM in DEXTROSE 5%-WATER - 50 ML IVPB SCH (09:32)
[2020-11-22] MEDS ORDERED: METHADONE HCL 40 MG DISPERSABLE TABLET PO ONE (14:45)
[2020-11-22] MEDS ORDERED: BISACODYL 5 MG TABLET.DR (FP) PO ONE (15:00)
[2020-11-22] MEDS ORDERED: POLYETHYLENE GLYCOL 3350 255 GM BTL PO ONE (16:00)
[2020-11-22] MEDS: IRON SUCROSE INJECTION 200 MG in SODIUM CHLORIDE 90 ML IVPB SCH (17:43)
[2020-11-22] MEDS: METHYL SALICYLATE/MENTHOL OINT 30 GM TUBE TP SCH (21:33)
[2020-11-22] MEDS: QUEtiapine FUMARATE 50 MG TABLET PO SCH (21:33)
[2020-11-22] MEDS ORDERED: METHYL SALICYLATE/MENTHOL OINT 30 GM TUBE TP SCH (22:00)
[2020-11-23 08:42] LABS: HEMATOCRIT 31.8 % (35.4-49); HEMOGLOBIN 9.4 GM/dL (11.7-16.9); MCH 20.5 pg (25.7-33.7); MCHC 29.5 g/dl (32.0-35.9); MEAN CELL VOLUME 69.3 fl (80-96); PLATELET COUNT 366 K/MM3 (134-434); RBC 4.59 M/mm3 (4.00-5.60); RDW 22.4 % (11.9-15.9); WHITE BLOOD COUNT 7.1 K/mm3 (4.0-10.0)
[2020-11-23 09:12] LABS: BLOOD UREA NITROGEN 4.4 mg/dL (7-18); CALCIUM 8.7 mg/dL (8.5-10.1)
[2020-11-23 09:16] LABS: CREATININE 0.5 mg/dL (0.55-1.3)
[2020-11-23] MEDS: METHADONE HCL 40 MG DISPERSABLE TABLET PO SCH (09:25)
[2020-11-23] MEDS: SULFAMETHOXAZOLE/TRIMETHOPRIM 800MG/160MG D.S. TABLET PO SCH ×2 (09:25→21:57)
[2020-11-23] MEDS: METHYL SALICYLATE/MENTHOL OINT 30 GM TUBE TP SCH ×2 (12:29→21:58)
[2020-11-23] MEDS: PANTOPRAZOLE 40 MG TABLET PO SCH (12:30)
[2020-11-23] MEDS: PARoxetine HCL 10 MG TABLET PO SCH (12:30)
[2020-11-23] MEDS: IRON SUCROSE INJECTION 200 MG in SODIUM CHLORIDE 90 ML IVPB SCH (15:33)
[2020-11-23] MEDS ORDERED: BISACODYL 5 MG TABLET.DR (FP) PO ONE (16:00)
[2020-11-23 16:13] LABS: HGB SOLUBILITY Negative (Negative); Hgb C 0 % (0.0); Hgb F 0 % (0.0-2.0); Hgb S 0 % (0.0)
[2020-11-23] MEDS ORDERED: POLYETHYLENE GLYCOL 3350 255 GM BTL PO ONE (17:00)
[2020-11-23] MEDS ORDERED: PT OWN MED DRAWER 7, Y5N ONE (17:37)
[2020-11-23] MEDS: QUEtiapine FUMARATE 50 MG TABLET PO SCH (21:57)
[2020-11-24] MEDS: METHADONE HCL 40 MG DISPERSABLE TABLET PO SCH (06:03)
[2020-11-24] MEDS: SULFAMETHOXAZOLE/TRIMETHOPRIM 800MG/160MG D.S. TABLET PO SCH (10:36)
[2020-11-24] MEDS: PANTOPRAZOLE 40 MG TABLET PO SCH (10:37)
[2020-11-24] MEDS: PARoxetine HCL 10 MG TABLET PO SCH (10:37)
[2020-11-24] MEDS: METHYL SALICYLATE/MENTHOL OINT 30 GM TUBE TP SCH (10:40)
[2020-11-24 13:19] VITALS: TEMP 98.2
[2020-11-24 13:46] VITALS: BP 106/76; PULSE 72
[2020-11-24] MEDS ORDERED: SULFAMETHOXAZOLE/TRIMETHOPRIM 800MG/160MG D.S. TABLET PO ONE (16:07)
[2020-11-25 06:06] LABS: HBsAG CONFIRMATION Positive (.)
== END 2020-11-24 18:00 | disposition home or self-care (01) | DRG 241 ==
LOC: JER 09:54 → JERBED 10:46 → J7W 18:56
PROVIDERS: ATTEND Internal Medicine
PROC: 0DB68ZX Excision of Stomach, Via Natural or Artificial Opening Endoscopic, Diagnostic (ICD-10-PCS; 2020-11-19)
PROC: 0DB78ZX Excision of Stomach, Pylorus, Via Natural or Artificial Opening Endoscopic, Diagnostic (ICD-10-PCS; 2020-11-19)
PROC: 0DJD8ZZ Inspection of Lower Intestinal Tract, Via Natural or Artificial Opening Endoscopic (ICD-10-PCS; 2020-11-23)
PROC: 0DJD8ZZ Inspection of Lower Intestinal Tract, Via Natural or Artificial Opening Endoscopic (ICD-10-PCS; principal; 2020-11-24 14:00)
DX: K25.0 Acute gastric ulcer with hemorrhage (principal); J45.909 Unspecified asthma, uncomplicated; F41.8 Other specified anxiety disorders; F43.10 Post-traumatic stress disorder, unspecified; D50.0 Iron deficiency anemia secondary to blood loss (chronic); R59.1 Generalized enlarged lymph nodes; K86.9 Disease of pancreas, unspecified; F20.9 Schizophrenia, unspecified; N39.0 Urinary tract infection, site not specified; R10.31 Right lower quadrant pain; Z86.19 Personal history of other infectious and parasitic diseases; F17.210 Nicotine dependence, cigarettes, uncomplicated; B18.1 Chronic viral hepatitis B without delta-agent; R59.0 Localized enlarged lymph nodes; K64.8 Other hemorrhoids
CPT/HCPCS: 36415; 71045-TC-FY; 74177-TC; 74181-TC; 76882-TC-RT-FY; 80048; 80053; 81003; 82550; 82728; 83021; 83540; 83550; 83690; 83735; 84100; 84466; 84484; 85025; 85027; 85610; 85660; 85730; 86850; 86900; 86901; 87086; 87186; 87340; 87517; 87536; 88305-TC; 88341-TC; 93005; 93010; 99285-25; C9803; J0131; J1756; Q9967; U0003

== ENCOUNTER 2020-12-02 00:07 | Observation (INO) | payer OTHER ==
[2020-12-02 00:22] VITALS: BMI 24.3
[2020-12-02] MEDS ORDERED: ONDANSETRON 4 MG/2 ML VIAL IVPUSH ONE (00:45)
[2020-12-02] MEDS ORDERED: SODIUM CHLORIDE 1,000 ML IV STA (00:45)
[2020-12-02] MEDS ORDERED: PANTOPRAZOLE SODIUM 40 MG VIAL IVPUSH ONE (00:45)
[2020-12-02] MEDS ORDERED: ONDANSETRON 4 MG/2 ML VIAL ONE (00:55)
[2020-12-02] MEDS ORDERED: PANTOPRAZOLE SODIUM 40 MG VIAL ONE ×2 (00:55→09:11)
[2020-12-02 02:07] LABS: BASO % 0.3 % (0-2.0); EOS % 0.8 % (0-4.5); HEMATOCRIT 27.6 % (35.4-49); HEMOGLOBIN 8.6 GM/dL (11.7-16.9); LYMPH % 22.9 % (8-40); MEAN CELL VOLUME 70.9 fl (80-96); MEAN PLT VOLUME 7.8 fl (7.5-11.1); MONO % 9.8 % (3.8-10.2); NEUT % 66.2 % (42.8-82.8); PLATELET COUNT 400 K/MM3 (134-434); RDW 25.7 % (11.9-15.9); WHITE BLOOD COUNT 8.3 K/mm3 (4.0-10.0)
[2020-12-02 02:20] LABS: INR 1.16 (0.83-1.09)
[2020-12-02 02:45] LABS: CHLORIDE 106 mmol/L (98-107); POTASSIUM 3.8 mmol/L (3.5-5.1); SODIUM 141 mmol/L (136-145)
[2020-12-02 02:47] LABS: CALCIUM 8.6 mg/dL (8.5-10.1)
[2020-12-02 02:48] LABS: ALBUMIN 2.5 g/dl (3.4-5.0); ANION GAP 6 MMOL/L (8-16); BLOOD UREA NITROGEN 4.4 mg/dL (7-18); CO2 29 mmol/L (21-32); GLUCOSE,RANDOM 106 mg/dL (74-106); LIPASE 51 U/L (73-393)
[2020-12-02 02:50] LABS: SGPT/ALT 17 U/L (13-61)
[2020-12-02 02:51] LABS: CREATININE 0.5 mg/dL (0.55-1.3); SGOT/AST 19 U/L (15-37)
[2020-12-02 02:52] LABS: BILIRUBIN,TOTAL 0.4 mg/dL (0.2-1); TOT PROT 7.5 g/dl (6.4-8.2)
[2020-12-02 02:53] LABS: ALK PHOS 105 U/L (45-117)
[2020-12-02 05:01] LABS: ANISOCYTOSIS 2+; MACROCYTOSIS 0; PLATELET ESTIMATE NORMAL; TARGET CELLS 1+
[2020-12-02] MEDS ORDERED: SODIUM CHLORIDE 1,000 ML IV SCH (08:45)
[2020-12-02 09:59] LABS: URINE APPEARANCE CLEAR; URINE BILIRUBIN NEGATIVE (NEGATIVE); URINE COLOR YELLOW; URINE GLUCOSE (UA) NEGATIVE (NEGATIVE); URINE KETONE NEGATIVE (NEGATIVE); URINE LEUK ESTERASE NEGATIVE (NEGATIVE); URINE NITRITE NEGATIVE (NEGATIVE); URINE PROTEIN NEGATIVE (NEGATIVE); URINE UROBILINOGEN 0.2 mg/dL (0.2-1.0)
[2020-12-02 20:10] VITALS: BP 116/79; PULSE 68; TEMP 98.2
[2020-12-03] MEDS ORDERED: PANTOPRAZOLE SODIUM 40 MG VIAL IVPUSH SCH ×2 (10:00)
== END 2020-12-02 21:26 | disposition short-term general hospital (02) ==
LOC: JER 00:07 → INTOOBSV 08:04 → JERBED 08:04
PROVIDERS: ADMIT Internal Medicine
PROC: 3E0337Z Introduction of Electrolytic and Water Balance Substance into Peripheral Vein, Percutaneous Approach (ICD-10-PCS; principal; 2020-12-02)
PROC: 3E033GC Introduction of Other Therapeutic Substance into Peripheral Vein, Percutaneous Approach (ICD-10-PCS; 2020-12-02)
DX: R10.84 Generalized abdominal pain (principal); F20.9 Schizophrenia, unspecified; F43.10 Post-traumatic stress disorder, unspecified; A04.8 Other specified bacterial intestinal infections; B19.10 Unspecified viral hepatitis B without hepatic coma; R63.4 Abnormal weight loss; Z87.891 Personal history of nicotine dependence; J45.909 Unspecified asthma, uncomplicated; K25.9 Gastric ulcer, unspecified as acute or chronic, without hemorrhage or perforation; Z85.9 Personal history of malignant neoplasm, unspecified
CPT/HCPCS: 36415; 71260-TC; 74177-TC; 80053; 80307; 81003; 82550; 83605; 83690; 84484; 85025; 85610; 86850; 86900; 86901; 93005; 93010; 96361; 96374; 96375; 99285-25; C9803; G0378; U0003

== ENCOUNTER 2020-12-19 04:19 | Observation (INO) | payer OTHER ==
[2020-12-19] MEDS ORDERED: ONDANSETRON 4 MG/2 ML VIAL IVPUSH ONE (04:34)
[2020-12-19] MEDS ORDERED: PANTOPRAZOLE SODIUM 40 MG in SODIUM CHLORIDE 100 ML IVPB ONE (04:34)
[2020-12-19] MEDS ORDERED: PANTOPRAZOLE SODIUM 80 MG in SODIUM CHLORIDE 100 ML IVPB SCH (04:45)
[2020-12-19] MEDS ORDERED: PANTOPRAZOLE SODIUM 40 MG VIAL IVPUSH ONE (04:51)
[2020-12-19] MEDS: PANTOPRAZOLE SODIUM 80 MG in SODIUM CHLORIDE 100 ML IVPB SCH ×2 (05:00→16:34)
[2020-12-19 05:21] LABS: BASO % 0.2 % (0-2.0); EOS % 0.4 % (0-4.5); HEMATOCRIT 36.3 % (35.4-49); HEMOGLOBIN 11.6 GM/dL (11.7-16.9); LYMPH % 27.5 % (8-40); MCH 23.4 pg (25.7-33.7); MCHC 31.8 g/dl (32.0-35.9); MEAN CELL VOLUME 73.5 fl (80-96); MEAN PLT VOLUME 9.3 fl (7.5-11.1); MONO % 11.1 % (3.8-10.2); NEUT % 60.8 % (42.8-82.8); PLATELET COUNT 249 K/MM3 (134-434); RBC 4.94 M/mm3 (4.00-5.60); RETICULOCYTES 1.08 % (0.5-1.5); WHITE BLOOD COUNT 7.5 K/mm3 (4.0-10.0)
[2020-12-19 05:31] LABS: INR 1.23 (0.83-1.09); PROTHROMBIN TIME (PATIENT) 14.8 SEC (9.7-13.0)
[2020-12-19 05:34] LABS: ACTIVATED PTT 32.2 SECONDS (25.2-36.5)
[2020-12-19 05:38] LABS: CHLORIDE 103 mmol/L (98-107); POTASSIUM 3.7 mmol/L (3.5-5.1); SODIUM 138 mmol/L (136-145)
[2020-12-19 05:42] LABS: ALBUMIN 2.9 g/dl (3.4-5.0); ANION GAP 6 MMOL/L (8-16); BLOOD UREA NITROGEN 8.2 mg/dL (7-18); CO2 29 mmol/L (21-32); LIPASE 51 U/L (73-393)
[2020-12-19 05:43] LABS: GLUCOSE,RANDOM 101 mg/dL (74-106)
[2020-12-19 05:45] LABS: BILIRUBIN,DIRECT 0.2 mg/dL (0.0-0.2); CREATININE 0.6 mg/dL (0.55-1.3); SGOT/AST 17 U/L (15-37); SGPT/ALT 17 U/L (13-61)
[2020-12-19 05:46] LABS: IRON SERUM 25 ug/dL (50-175); LDH 182 U/L (87-246); TOTAL IRON BINDING CAPACITY 304 ug/dL (250-450)
[2020-12-19 05:47] LABS: BILIRUBIN,TOTAL 0.5 mg/dL (0.2-1); TOT PROT 8.4 g/dl (6.4-8.2)
[2020-12-19 05:48] LABS: ALK PHOS 108 U/L (45-117)
[2020-12-19 09:09] LABS: ANISOCYTOSIS 1+; MACROCYTOSIS 0; PLATELET ESTIMATE NORMAL; TARGET CELLS 1+
[2020-12-19] MEDS ORDERED: ONDANSETRON 4 MG/2 ML VIAL IVPUSH PRN (15:37)
[2020-12-19 16:32] LABS: EOS % 1.3 % (0-4.5); HEMOGLOBIN 11.1 GM/dL (11.7-16.9); LYMPH % 33.6 % (8-40); MCHC 30.7 g/dl (32.0-35.9); MEAN CELL VOLUME 74.8 fl (80-96); MEAN PLT VOLUME 9.1 fl (7.5-11.1); MONO % 11.5 % (3.8-10.2); NEUT % 52.6 % (42.8-82.8); PLATELET COUNT 259 K/MM3 (134-434); RBC 4.82 M/mm3 (4.00-5.60); RDW 28.8 % (11.9-15.9); WHITE BLOOD COUNT 6.6 K/mm3 (4.0-10.0)
[2020-12-19] MEDS ORDERED: LACTATED RINGERS SOLUTION 1,000 ML IV SCH (23:21)
[2020-12-19] MEDS: QUEtiapine FUMARATE 50 MG TABLET PO SCH (23:40)
[2020-12-20] MEDS: PANTOPRAZOLE SODIUM 80 MG in SODIUM CHLORIDE 100 ML IVPB SCH (01:55)
[2020-12-20 06:56] VITALS: BMI 20.5
[2020-12-20 08:36] LABS: POTASSIUM 3.9 mmol/L (3.5-5.1)
[2020-12-20 08:39] LABS: CALCIUM 8.6 mg/dL (8.5-10.1)
[2020-12-20 08:40] LABS: ALBUMIN 2.6 g/dl (3.4-5.0); MAGNESIUM 1.9 mg/dL (1.8-2.4)
[2020-12-20 08:43] LABS: BLOOD UREA NITROGEN 13.7 mg/dL (7-18); CREATININE 0.7 mg/dL (0.55-1.3); PHOSPHOROUS 4.1 mg/dL (2.5-4.9)
[2020-12-20 08:44] LABS: BILIRUBIN,TOTAL 0.6 mg/dL (0.2-1); TOT PROT 7.5 g/dl (6.4-8.2)
[2020-12-20] MEDS ORDERED: PANTOPRAZOLE SODIUM 40 MG VIAL IVPUSH SCH (11:00)
[2020-12-20] MEDS ORDERED: PT OWN MED DRAWER 7, Y5N ONE ×3 (11:14→13:51)
[2020-12-20] MEDS: PARoxetine HCL 10 MG TABLET PO SCH (11:19)
[2020-12-20 12:06] LABS: BASO % 0.7 % (0-2.0); EOS % 1.6 % (0-4.5); HEMOGLOBIN 10.1 GM/dL (11.7-16.9); LYMPH % 51.5 % (8-40); MCH 23.2 pg (25.7-33.7); MCHC 31.4 g/dl (32.0-35.9); MEAN CELL VOLUME 73.7 fl (80-96); MEAN PLT VOLUME 9.1 fl (7.5-11.1); MONO % 10.9 % (3.8-10.2); NEUT % 35.3 % (42.8-82.8); PLATELET COUNT 247 K/MM3 (134-434); RBC 4.34 M/mm3 (4.00-5.60); RDW 28.7 % (11.9-15.9); WHITE BLOOD COUNT 4.7 K/mm3 (4.0-10.0)
[2020-12-20] MEDS: TENOFOVIR DISOPROXIL FUMARATE 300 MG TABLET PO SCH (14:40)
[2020-12-20 18:03] LABS: BASO % 0.4 % (0-2.0); EOS % 1.8 % (0-4.5); HEMATOCRIT 32.4 % (35.4-49); HEMOGLOBIN 10.1 GM/dL (11.7-16.9); LYMPH % 58.7 % (8-40); MCHC 31.2 g/dl (32.0-35.9); MEAN CELL VOLUME 73.5 fl (80-96); MONO % 11.5 % (3.8-10.2); NEUT % 27.6 % (42.8-82.8); PLATELET COUNT 257 K/MM3 (134-434); RBC 4.41 M/mm3 (4.00-5.60); RDW 27.9 % (11.9-15.9); WHITE BLOOD COUNT 5.4 K/mm3 (4.0-10.0)
[2020-12-20] MEDS: PANTOPRAZOLE SODIUM 40 MG VIAL IVPUSH SCH (22:21)
[2020-12-20] MEDS: QUEtiapine FUMARATE 50 MG TABLET PO SCH (22:22)
[2020-12-21 09:01] LABS: BASO % 0.3 % (0-2.0); EOS % 2.1 % (0-4.5); HEMATOCRIT 31.4 % (35.4-49); HEMOGLOBIN 9.9 GM/dL (11.7-16.9); MCHC 31.5 g/dl (32.0-35.9); MEAN CELL VOLUME 73.2 fl (80-96); MEAN PLT VOLUME 8.7 fl (7.5-11.1); MONO % 14.7 % (3.8-10.2); NEUT % 28.9 % (42.8-82.8); PLATELET COUNT 243 K/MM3 (134-434); RBC 4.29 M/mm3 (4.00-5.60); RDW 28.7 % (11.9-15.9); WHITE BLOOD COUNT 5.6 K/mm3 (4.0-10.0)
[2020-12-21 09:27] LABS: POTASSIUM 3.5 mmol/L (3.5-5.1)
[2020-12-21 09:38] LABS: ALBUMIN 2.5 g/dl (3.4-5.0); CALCIUM 8.4 mg/dL (8.5-10.1)
[2020-12-21 09:39] LABS: MAGNESIUM 2.1 mg/dL (1.8-2.4)
[2020-12-21 09:41] LABS: CREATININE 0.7 mg/dL (0.55-1.3)
[2020-12-21 09:42] LABS: BILIRUBIN,TOTAL 0.3 mg/dL (0.2-1)
[2020-12-21] MEDS ORDERED: PT OWN MED DRAWER 7, Y5N ONE (09:46)
[2020-12-21] MEDS: PARoxetine HCL 10 MG TABLET PO SCH (09:49)
[2020-12-21] MEDS: TENOFOVIR DISOPROXIL FUMARATE 300 MG TABLET PO SCH (09:49)
[2020-12-21] MEDS: PANTOPRAZOLE SODIUM 40 MG VIAL IVPUSH SCH (09:49)
[2020-12-21 15:45] VITALS: BP 113/72; PULSE 85; TEMP 98.5
== END 2020-12-21 18:35 | disposition home or self-care (01) ==
LOC: JER 04:19 → JERBED 06:16 → INTOOBSV 06:16 → J7W 22:06
PROVIDERS: ADMIT Internal Medicine; ATTEND Internal Medicine
PROC: 3E0337Z Introduction of Electrolytic and Water Balance Substance into Peripheral Vein, Percutaneous Approach (ICD-10-PCS; principal; 2020-12-19)
PROC: 3E033GC Introduction of Other Therapeutic Substance into Peripheral Vein, Percutaneous Approach (ICD-10-PCS; 2020-12-19)
DX: R10.9 Unspecified abdominal pain (principal); R63.4 Abnormal weight loss; D49.0 Neoplasm of unspecified behavior of digestive system; J45.909 Unspecified asthma, uncomplicated; F20.9 Schizophrenia, unspecified; F43.10 Post-traumatic stress disorder, unspecified; A04.8 Other specified bacterial intestinal infections; B19.10 Unspecified viral hepatitis B without hepatic coma; D64.9 Anemia, unspecified
CPT/HCPCS: 36415; 71045-TC-FY; 80053; 82248; 82550; 82607; 82728; 82746; 82962; 83010; 83540; 83550; 83615; 83690; 83735; 84100; 84443; 84484; 85025; 85045; 85610; 85730; 86850; 86900; 86901; 93005; 93010; 96361; 96365; 96375; 96376; 99285-25; C9803; G0378; U0003

== ENCOUNTER 2020-12-27 02:07 | Emergency (ER) | payer OTHER ==
[2020-12-27 02:18] VITALS: BMI 20.4
[2020-12-27] MEDS ORDERED: SODIUM CHLORIDE 0.9% 500 ML INFUS.BAG IV ONE (02:55)
[2020-12-27] MEDS ORDERED: MAG HYDROX/AL HYDROX/SIMETH -MYLANTA- ORAL SUSPENSION PO ONE (02:55)
[2020-12-27] MEDS ORDERED: FAMOTIDINE 20 MG/50 ML IVPB 20 MG/50 ML MG IVPB ONE ×2 (02:55→03:34)
[2020-12-27 03:06] LABS: BASO % 0.3 % (0-2.0); EOS % 1.3 % (0-4.5); HEMATOCRIT 32.4 % (35.4-49); LYMPH % 24.6 % (8-40); MCH 23.4 pg (25.7-33.7); MCHC 30.7 g/dl (32.0-35.9); MEAN PLT VOLUME 9.2 fl (7.5-11.1); MONO % 10.5 % (3.8-10.2); NEUT % 63.3 % (42.8-82.8); PLATELET COUNT 310 K/MM3 (134-434); RBC 4.27 M/mm3 (4.00-5.60); RDW 27.4 % (11.9-15.9); WHITE BLOOD COUNT 8.2 K/mm3 (4.0-10.0)
[2020-12-27 03:11] LABS: INR 1.1 (0.83-1.09); PROTHROMBIN TIME (PATIENT) 13.3 SEC (9.7-13.0)
[2020-12-27] MEDS ORDERED: MAG HYDROX/AL HYDROX/SIMETH 30 ML UNIT-DOSE CUP ONE (03:11)
[2020-12-27 03:14] LABS: ACTIVATED PTT 33.3 SECONDS (25.2-36.5)
[2020-12-27 03:18] LABS: CHLORIDE 104 mmol/L (98-107); SODIUM 133 mmol/L (136-145)
[2020-12-27 03:21] LABS: ALBUMIN 2.7 g/dl (3.4-5.0); BLOOD UREA NITROGEN 7.8 mg/dL (7-18); CALCIUM 8.2 mg/dL (8.5-10.1); CO2 32 mmol/L (21-32); GLUCOSE,RANDOM 123 mg/dL (74-106); LIPASE 30 U/L (73-393)
[2020-12-27 03:24] LABS: CREATININE 0.7 mg/dL (0.55-1.3); SGOT/AST 74 U/L (15-37)
[2020-12-27 03:26] LABS: BILIRUBIN,TOTAL 0.4 mg/dL (0.2-1); TOT PROT 8.1 g/dl (6.4-8.2)
[2020-12-27 04:40] LABS: ANISOCYTOSIS 3+
[2020-12-27 05:17] LABS: ALK PHOS 119 U/L (45-117); ANION GAP -3 MMOL/L (8-16); SGPT/ALT 19 U/L (13-61)
[2020-12-27 05:18] LABS: POTASSIUM > 10.0 mmol/L (3.5-5.1)
[2020-12-27] MEDS ORDERED: PANTOPRAZOLE SODIUM 40 MG VIAL IVPUSH ONE (05:26)
[2020-12-27] MEDS ORDERED: PANTOPRAZOLE SODIUM 40 MG VIAL ONE (05:38)
[2020-12-27 06:02] LABS: POTASSIUM 3.9 mmol/L (3.5-5.1)
[2020-12-27 06:04] LABS: BLOOD UREA NITROGEN 8.4 mg/dL (7-18); CALCIUM 8.1 mg/dL (8.5-10.1)
[2020-12-27 06:08] LABS: CREATININE 0.5 mg/dL (0.55-1.3)
[2020-12-27 07:05] VITALS: TEMP 97.6
[2020-12-27 13:00] VITALS: BP 127/67; PULSE 60
== END 2020-12-27 13:02 | disposition short-term general hospital (02) ==
LOC: JER 02:07
PROC: 3E033GC Introduction of Other Therapeutic Substance into Peripheral Vein, Percutaneous Approach (ICD-10-PCS; principal; 2020-12-27)
PROC: 3E033GC Introduction of Other Therapeutic Substance into Peripheral Vein, Percutaneous Approach (ICD-10-PCS; 2020-12-27)
DX: K31.1 Adult hypertrophic pyloric stenosis (principal); C25.0 Malignant neoplasm of head of pancreas; R10.11 Right upper quadrant pain
CPT/HCPCS: 36415; 71045-TC-FY; 74177-TC; 80048; 80053; 82550; 82553; 83605; 83690; 83735; 84484; 85025; 85610; 85730; 86301; 93005; 93010; 99285-25; C9803; U0003

== ENCOUNTER 2021-02-28 09:19 | Emergency (ER) | payer OTHER ==
[2021-02-28 09:39] VITALS: BMI 25.8
[2021-02-28] MEDS ORDERED: SODIUM CHLORIDE 0.9% 500 ML INFUS.BAG IV ONE (09:41)
[2021-02-28] MEDS ORDERED: ONDANSETRON 4 MG/2 ML VIAL IVPUSH ONE (09:41)
[2021-02-28] MEDS ORDERED: FAMOTIDINE 20 MG/50 ML IVPB 50 ML IVPB ONE (09:41)
[2021-02-28] MEDS ORDERED: PANTOPRAZOLE SODIUM 40 MG VIAL IVPUSH ONE ×2 (09:45→09:48)
[2021-02-28] MEDS ORDERED: morphine CARPU-JECT 4 MG/1 ML DISP.SYRIN IVPUSH ONE ×2 (10:10→11:38)
[2021-02-28 10:55] LABS: BASO % 0.5 % (0-2.0); EOS % 0.5 % (0-4.5); HEMATOCRIT 37.3 % (35.4-49); HEMOGLOBIN 12.3 GM/dL (11.7-16.9); LYMPH % 23.8 % (8-40); MEAN CELL VOLUME 78.7 fl (80-96); MEAN PLT VOLUME 8.6 fl (7.5-11.1); MONO % 11.5 % (3.8-10.2); NEUT % 63.7 % (42.8-82.8); PLATELET COUNT 413 K/MM3 (134-434); RBC 4.74 M/mm3 (4.00-5.60); RDW 20.9 % (11.9-15.9); WHITE BLOOD COUNT 8.3 K/mm3 (4.0-10.0)
[2021-02-28 11:01] LABS: INR 1.25 (0.83-1.09)
[2021-02-28] MEDS ORDERED: PANTOPRAZOLE SODIUM 40 MG VIAL ONE (11:13)
[2021-02-28] MEDS ORDERED: ONDANSETRON 4 MG/2 ML VIAL ONE (11:13)
[2021-02-28] MEDS ORDERED: morphine SULFATE 4 MG/ML VIAL ONE ×2 (11:16→12:04)
[2021-02-28 11:21] LABS: BLOOD UREA NITROGEN 10.2 mg/dL (7-18); CALCIUM 9.2 mg/dL (8.5-10.1)
[2021-02-28 11:22] LABS: ALBUMIN 3.3 g/dl (3.4-5.0)
[2021-02-28 11:25] LABS: BILIRUBIN,TOTAL 0.6 mg/dL (0.2-1); CREATININE 0.6 mg/dL (0.55-1.3)
[2021-02-28 11:27] LABS: TOT PROT 9.3 g/dl (6.4-8.2)
[2021-02-28 12:54] LABS: PLATELET ESTIMATE SIGNIFICANT INCREASE
[2021-02-28 12:55] LABS: OVALOCYTE 1+
[2021-02-28 16:32] LABS: BASO % 0.3 % (0-2.0); EOS % 0.8 % (0-4.5); HEMATOCRIT 35.2 % (35.4-49); HEMOGLOBIN 11.3 GM/dL (11.7-16.9); LYMPH % 34.2 % (8-40); MCH 25.5 pg (25.7-33.7); MCHC 32.1 g/dl (32.0-35.9); MEAN CELL VOLUME 79.7 fl (80-96); MEAN PLT VOLUME 8.4 fl (7.5-11.1); MONO % 13.1 % (3.8-10.2); NEUT % 51.6 % (42.8-82.8); PLATELET COUNT 357 K/MM3 (134-434); RBC 4.42 M/mm3 (4.00-5.60); RDW 20.6 % (11.9-15.9); WHITE BLOOD COUNT 7.9 K/mm3 (4.0-10.0)
[2021-02-28 18:59] VITALS: BP 100/65; PULSE 85; TEMP 98.9
== END 2021-02-28 20:37 | disposition short-term general hospital (02) ==
LOC: JER 09:19
PROC: 3E033GC Introduction of Other Therapeutic Substance into Peripheral Vein, Percutaneous Approach (ICD-10-PCS; principal; 2021-02-28)
PROC: 3E033NZ Introduction of Analgesics, Hypnotics, Sedatives into Peripheral Vein, Percutaneous Approach (ICD-10-PCS; 2021-02-28)
PROC: 3E033NZ Introduction of Analgesics, Hypnotics, Sedatives into Peripheral Vein, Percutaneous Approach (ICD-10-PCS; 2021-02-28)
PROC: 3E033GC Introduction of Other Therapeutic Substance into Peripheral Vein, Percutaneous Approach (ICD-10-PCS; 2021-02-28)
PROC: 3E033GC Introduction of Other Therapeutic Substance into Peripheral Vein, Percutaneous Approach (ICD-10-PCS; 2021-02-28)
DX: K92.1 Melena (principal); K25.4 Chronic or unspecified gastric ulcer with hemorrhage
CPT/HCPCS: 36415; 74177-TC; 80053; 83605; 83690; 84484; 85025; 85610; 93005; 93010; 99285-25; C9803; Q9967; U0003; U0005

== ENCOUNTER 2021-03-16 12:29 | Emergency (ER) | payer OTHER ==
[2021-03-16 12:55] VITALS: BMI 19.2
[2021-03-16] MEDS ORDERED: ONDANSETRON 4 MG/2 ML VIAL IVPUSH ONE (13:38)
[2021-03-16] MEDS ORDERED: ACETAMINOPHEN 1000 MG/100 ML VIAL (NON FORMULARY) IVPB ONE (13:38)
[2021-03-16] MEDS ORDERED: ONDANSETRON 4 MG/2 ML VIAL ONE ×2 (13:48→15:10)
[2021-03-16] MEDS ORDERED: ACETAMINOPHEN INJECTION 100 ML IVPB ONE (13:48)
[2021-03-16] MEDS ORDERED: PANTOPRAZOLE SODIUM 40 MG VIAL IVPUSH ONE (14:55)
[2021-03-16] MEDS ORDERED: PANTOPRAZOLE SODIUM 40 MG VIAL ONE (15:10)
[2021-03-16 15:18] LABS: BASO % 1.4 % (0-2.0); EOS % 1.6 % (0-4.5); HEMATOCRIT 34.5 % (35.4-49); LYMPH % 30.7 % (8-40); MCH 25.3 pg (25.7-33.7); MCHC 31.8 g/dl (32.0-35.9); MEAN CELL VOLUME 79.5 fl (80-96); MONO % 10.6 % (3.8-10.2); NEUT % 55.7 % (42.8-82.8); PLATELET COUNT 329 K/MM3 (134-434); RBC 4.34 M/mm3 (4.00-5.60); RDW 20.6 % (11.9-15.9); WHITE BLOOD COUNT 7.9 K/mm3 (4.0-10.0)
[2021-03-16 15:38] LABS: ALBUMIN 3.4 g/dl (3.4-5.0); CALCIUM 9.6 mg/dL (8.5-10.1)
[2021-03-16 15:39] LABS: BLOOD UREA NITROGEN 5.6 mg/dL (7-18); MAGNESIUM 2.2 mg/dL (1.8-2.4)
[2021-03-16 15:42] LABS: CREATININE 0.6 mg/dL (0.55-1.3)
[2021-03-16 15:43] LABS: BILIRUBIN,TOTAL 0.5 mg/dL (0.2-1); TOT PROT 8.3 g/dl (6.4-8.2)
[2021-03-16 15:47] LABS: ANISOCYTOSIS 2+; MACROCYTOSIS 0; PLATELET ESTIMATE NORMAL; TARGET CELLS 1+
[2021-03-16 17:54] VITALS: TEMP 97.9
[2021-03-16] MEDS ORDERED: DEXTROSE 5%-0.45% SALINE 1,000 ML IV SCH (20:00)
[2021-03-16 20:13] VITALS: PULSE 61
[2021-03-16 23:16] VITALS: BP 101/64
== END 2021-03-16 23:16 | disposition short-term general hospital (02) ==
LOC: JER 12:29
PROC: 3E0333Z Introduction of Anti-inflammatory into Peripheral Vein, Percutaneous Approach (ICD-10-PCS; principal; 2021-03-16)
PROC: 3E033GC Introduction of Other Therapeutic Substance into Peripheral Vein, Percutaneous Approach (ICD-10-PCS; 2021-03-16)
PROC: 3E033GC Introduction of Other Therapeutic Substance into Peripheral Vein, Percutaneous Approach (ICD-10-PCS; 2021-03-16)
PROC: 3E033GC Introduction of Other Therapeutic Substance into Peripheral Vein, Percutaneous Approach (ICD-10-PCS; 2021-03-16)
DX: K31.9 Disease of stomach and duodenum, unspecified (principal); C16.9 Malignant neoplasm of stomach, unspecified; R11.10 Vomiting, unspecified
CPT/HCPCS: 36415; 80053; 83690; 83735; 85025; 93005; 93010; 99285-25; C9803; J0131; U0003; U0005